=== PATIENT | female | born 1940 | race Caucasian/White ===

== ENCOUNTER 2017-03-30 13:29 | Day surgery (SDC) | payer MEDICARE, BC, SELFPAY ==
[2017-03-30 14:04] VITALS: BP 149/59; PULSE 57; RESP 18; TEMP 36.4; O2SAT 97
--- NOTE | 2017-03-30 14:24 | P.PCN_ITS ---
- Procedure Date: 03/30/17 Time: 14:22 Anesthesiologist:: Jorge Luis Last CRNA Complications:: None Pre-procedure Diagnosis:: Degenerative joint disease right shoulder Post-procedure Diagnosis:: Same Indications for Procedure:: Very pleasant 76-year-old white female with decreased range of motion and pain in the right shoulder. She has had right shoulder surgery in the past. However , she is not sure when that was. Presents to our procedure clinic today for a right subacromial shoulder injection. Procedure Details:: Details of the procedure were explained to the patient. The patient was taken to the procedure room placed in the sitting position. Noninvasive monitors were placed including noninvasive blood pressure cuff as well as pulse oximeter. The area over the posterior right shoulder was cleaned using chlorhexidine as a cleansing solution. The subacromial space was accessed using 25-gauge needle and 5 cc of 0.25% Marcaine +5 cc 1% lidocaine and 40 mg of Depo-Medrol was injected. Patient tolerated the procedure without difficulty. There were no complications. Plan and Disposition:: Patient was reevaluated 10 minutes post procedure. She is doing very well. She will return to see us in the pain clinic for further evaluation.
[2017-03-30 14:25] VITALS: BP 149/66; PULSE 51; RESP 20; O2SAT 97
[2017-03-30 14:26] VITALS: BP 155/80; PULSE 70; RESP 20
[2017-03-30 14:29] VITALS: BP 122/54; PULSE 57; RESP 18; TEMP 36.4; O2SAT 98
== END 2017-03-30 14:30 | disposition home or self-care (01) ==
LOC: SC.PAINP 13:34
PROVIDERS: Family Provider Family Medicine; Visit Provider Nurse Anesthetist, Certified Registered
DX: M19.011 Primary osteoarthritis, right shoulder (principal)
CPT/HCPCS: 20610; J1040

== ENCOUNTER → 2017-05-17 11:11 | Outpatient (POV) | payer MEDICARE, BC, SELFPAY ==
[2017-05-17 11:22] VITALS: BP 114/58; PULSE 61; RESP 16; O2SAT 96; BMI 30.4
--- NOTE | 2017-05-17 12:24 | HMH.PAINSOAP ---
[facility] Pain Management SOAP Note Subjective:: Patient is a very pleasant 76-year-old white female who presents today after a intra-articular shoulder injection. Patient states she did not get much relief from this. Patient has had long-term injuries to her shoulder along with degenerative joint disease. Patient states she does not really want to follow-up with an orthopedic surgeon for her shoulder at this time. Patient also has intrathecal pain pump and being managed by [facility]. Patient rates her pain a 6 out of 10 today. Patient denies any side effect her pain pump. Patient currently taking ibuprofen. I discussed potentially changing her to naproxen. Patient's pump currently has fentanyl 5000 mcg/mL concentration with a daily dose of 500 mcg. States that the pump does well for her back pain. ROS General: no recent weight change, no fever, no sleep disturbances Respiratory: no cough, no shortness of air, no recurring pulmonary infections Cardiovascular/Peripheral Vascular: No chest pain, No palpitations, no edema, no shortness of breath. Gastrointestinal: no incontinence, normal bowel movements reported Genitourinary: no incontinence Musculoskeletal: Lumbar back pain, right shoulder pain Psychiatric: normal mood/ affect Neurological: [denies weakness in extremities], balance issues at times uses cane for stability Objective:: Physical Exam General: Alert and oriented x3, no acute distress, pleasant and cooperative, [on room air] Lungs: Resps E/U, Symmetrical chest expansion, Eyes: PERRL Musculoskeletal: Flexion and extension of lumbar spine somewhat guarded secondary to pain, deep tendon reflexes normal, strength in upper and lower extremities [5/5], [abnormal gait noted] Neurological: speech clear, statistics tutor equal, no gross sensory deficits Assessment:: 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 Patient is not interested in seeing a surgeon for her shoulder at this time. Patient has a primary care physician visit this afternoon to discuss some medications. If the patient decides she wants to change the naproxen I would be more than happy to call this in for her. Patient is due a pain pump refill in June. We will continue to monitor. This note was dictated using voice electronic test technician software may contain errors or omissions
--- NOTE | 2017-05-17 12:29 | P.CONS_ITS ---
[facility] Pain Management SOAP Note Subjective:: Patient is a very pleasant 76-year-old white female who presents today after a intra-articular shoulder injection. Patient states she did not get much relief from this. Patient has had long-term injuries to her shoulder along with degenerative joint disease. Patient states she does not really want to follow- up with an orthopedic surgeon for her shoulder at this time. Patient also has intrathecal pain pump and being managed by [facility]. Patient rates her pain a 6 out of 10 today. Patient denies any side effect her pain pump. Patient currently taking ibuprofen. I discussed potentially changing her to naproxen. Patient's pump currently has fentanyl 5000 mcg/mL concentration with a daily dose of 500 mcg. States that the pump does well for her back pain. ROS General: no recent weight change, no fever, no sleep disturbances Respiratory: no cough, no shortness of air, no recurring pulmonary infections Cardiovascular/Peripheral Vascular: No chest pain, No palpitations, no edema, no shortness of breath. Gastrointestinal: no incontinence, normal bowel movements reported Genitourinary: no incontinence Musculoskeletal: Lumbar back pain, right shoulder pain Psychiatric: normal mood/ affect Neurological: [denies weakness in extremities], balance issues at times uses cane for stability Objective:: Physical Exam General: Alert and oriented x3, no acute distress, pleasant and cooperative, [ on room air] Lungs: Resps E/U, Symmetrical chest expansion, Eyes: PERRL Musculoskeletal: Flexion and extension of lumbar spine somewhat guarded secondary to pain, deep tendon reflexes normal, strength in upper and lower extremities [5/5], [abnormal gait noted] Neurological: speech clear, site manager equal, no gross sensory deficits Assessment:: 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 Patient is not interested in seeing a surgeon for her shoulder at this time. Patient has a primary care physician visit this afternoon to discuss some medications. If the patient decides she wants to change the naproxen I would be more than happy to call this in for her. Patient is due a pain pump refill in June. We will continue to monitor. This note was dictated using voice turbine technician software may contain errors or omissions
== END ==
PROVIDERS: Family Provider Family Medicine; PCP Internal Medicine Adolescent Medicine; Visit Provider Clinical Nurse Specialist Family Health
DX: M19.011 Primary osteoarthritis, right shoulder (principal)
CPT/HCPCS: 99212

== ENCOUNTER → 2017-09-20 14:07 | Outpatient (POV) | payer MEDICARE, BC, SELFPAY ==
[2017-09-20 14:23] VITALS: BP 106/41; PULSE 83; RESP 18; O2SAT 97; BMI 29.7
--- NOTE | 2017-09-20 14:59 | HMH.PMPROC ---
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 Patient has had a recent change in cognition over the last month. Patient presents today her electrical systems drafter. Patient does have an intrathecal fentanyl pump going at 500 mcg a day. Patient has not had any changes to her pump recently. Patient's electrical systems drafter is concerned that she might be overly sleepy along with extreme drowsiness. Patient also seemingly more forgetful as well as starting to present with repetitive OCD-like behaviors. I encouraged the patient to be seen by her primary care physician as well we will also decrease her pump today. Physical Exam General: Alert and oriented x3, no acute distress, pleasant and cooperative, [on room air] Lungs: Resps E/U, Symmetrical chest expansion, Eyes: PERRL Musculoskeletal: Flexion and extension of lumbar spine somewhat guarded secondary to pain, deep tendon reflexes normal, strength in upper and lower extremities [5/5], [abnormal gait noted] Skin: Multiple open areas with the patient has picked at her skin. Neurological: speech clear, electronic industrial controls mechanic equal, no gross sensory deficits Procedure Details:: Informed consent was obtained and the risk and benefits of the procedure were explained to the patient. The patient was taken to the procedure room where noninvasive monitoring was placed including noninvasive blood pressure cuff and pulse oximeter. Patient's pump was interrogated. The infusion rate was changed to periodic flow at 37.5 mcg over 10 minutes every 2 hours for total daily dose of 450 mcg a day.. The patient tolerated the procedure well. Plan and Disposition:: We will follow-up with the patient in 2 weeks reassess her symptoms at that time. I encouraged her to discuss this with her primary care physician. Patient's been instructed to call the office if she has any issues prior to next appointment. This note was dictated using voice recognition software and may contain errors or omissions
--- NOTE | 2017-09-20 15:04 | P.PCN_ITS ---
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 Patient has had a recent change in cognition over the last month. Patient presents today her adult ministries director. Patient does have an intrathecal fentanyl pump going at 500 mcg a day. Patient has not had any changes to her pump recently. Patient's adult ministries director is concerned that she might be overly sleepy along with extreme drowsiness. Patient also seemingly more forgetful as well as starting to present with repetitive OCD- like behaviors. I encouraged the patient to be seen by her primary care physician as well we will also decrease her pump today. Physical Exam General: Alert and oriented x3, no acute distress, pleasant and cooperative, [ on room air] Lungs: Resps E/U, Symmetrical chest expansion, Eyes: PERRL Musculoskeletal: Flexion and extension of lumbar spine somewhat guarded secondary to pain, deep tendon reflexes normal, strength in upper and lower extremities [5/5], [abnormal gait noted] Skin: Multiple open areas with the patient has picked at her skin. Neurological: speech clear, assistant floor covering printer equal, no gross sensory deficits Procedure Details:: Informed consent was obtained and the risk and benefits of the procedure were explained to the patient. The patient was taken to the procedure room where noninvasive monitoring was placed including noninvasive blood pressure cuff and pulse oximeter. Patient's pump was interrogated. The infusion rate was changed to periodic flow at 37.5 mcg over 10 minutes every 2 hours for total daily dose of 450 mcg a day.. The patient tolerated the procedure well. Plan and Disposition:: We will follow-up with the patient in 2 weeks reassess her symptoms at that time. I encouraged her to discuss this with her primary care physician. Patient's been instructed to call the office if she has any issues prior to next appointment. This note was dictated using voice recognition software and may contain errors or omissions
== END ==
PROVIDERS: Family Provider Family Medicine; PCP Internal Medicine Adolescent Medicine; Visit Provider Clinical Nurse Specialist Family Health
DX: M19.011 Primary osteoarthritis, right shoulder (principal); Z45.1 Encounter for adjustment and management of infusion pump; M54.16 Radiculopathy, lumbar region
CPT/HCPCS: 62367; 99212

== ENCOUNTER 2017-09-27 19:12 | Inpatient (IN) ==
[2017-09-27 19:36] LABS: ABG Base Excess 1.5 mmol/L (-2.4-2.3); ABG HCO3 24.9 mmhg (22.0-26.0); ABG Oxygen Saturation 92 % (90-100); ABG PCO2 33.8 mmhg (35.0-45.0); ABG PH 7.49 mmol/L (7.35-7.45); ABG PO2 61.2 mmhg (80-100); ABG TCO2 25.9 mmhg (23-27)
[2017-09-27 19:38] LABS: Allen's Test Acceptable; Oxygen 28 %
[2017-09-27 19:48] LABS: Basophils % 0.2 % (0.1-2.0); Eosinophils % 0.2 % (0.1-12.0); Hematocrit 38.7 % (37.0-47.0); Hemoglobin 12.2 g/dL (12.2-16.2); Lymphocytes # 0.7 K/mm3 (0.7-4.5); Lymphocytes % 2.9 K/mm3 (10-50); Mean Corpuscular HGB Conc 31.6 g/dL (31.8-35.4); Mean Corpuscular Hemoglobin 30.5 pg (27.0-31.2); Mean Corpuscular Volume 96.3 fl (81-99); Mean Platelet Volume 8.2 fl (7.4-10.4); Monocytes # 0.8 K/mm3 (0.1-1.0); Neutrophils # 23.9 K/mm3 (1.8-7.8); Neutrophils % 93.8 % (37.0-80.0); Platelet Count 244 K/mm3 (142-424); Red Blood Count 4.02 M/mm3 (4.20-5.40); Red Cell Distribution Width 13.1 % (11.5-17.5); White Blood Count 25.4 K/mm3 (4.8-10.8)
[2017-09-27 19:55] LABS: Appearance,Urine SL CLOUDY (Clear); Bilirubin,Urine Negative (Negative); Blood, Urine 2+ (Negative); Color,Urine YELLOW (Yellow); Glucose,Urine (UA) Negative (Negative); Ketones,Urine Negative (Negative); Leukocyte Esterase,Urine 3+ (Negative); Microscopic, Urine URINE MICROSCOPIC (MICROSCOPIC); Protein,Urine 2+ (Negative); Specific Gravity, Urine 1.015 (1.005-1.030); Urobilinogen,Urine 0.2 EU/dl (0.2)
[2017-09-27 19:57] LABS: Albumin Level 2.3 gm/dL (3.4-5.0); Albumin/Globulin Ratio 0.4 (1.1-1.8); Bilirubin,Total 0.5 mg/dL (0.2-1.0); Calcium 9.5 mg/dL (8.5-10.1); Globulin 5.2 gm/dl (1.3-3.2); Total Protein,Serum 7.5 gm/dL (6.4-8.2)
[2017-09-27 20:08] LABS: Bacteria,Urine 3+ /lpf; RBC,Urine Occasional #/hpf (0-3); WBC,Urine 50-100 #/hpf (0-3)
--- NOTE | 2017-09-27 20:14 | Emergency Department Note ---
ED Disposition Instructions: DI for Altered Mental Status Referrals: Josep Up MD [Primary Care Provider] - Attestation: On 09/27/17, the high probability of a clinically significant, sudden or life threatening deterioration of the following system(s) required my full and direct attention, intervention and personal management. The time I documented below is in addition to time spent performing reported procedures but includes the following listed in this critical care notation. Medical Decision Making Vital Signs: 09/27/17 19:13 09/27/17 19:39 Temperature 99.9 F H Temperature Source Oral Pulse Rate [Right Brachial] 98 H 100 H Respiratory Rate 14 15 Blood Pressure [Right Arm] 100/49 116/56 Blood Pressure Mean [Right Arm] 66 76 Blood Pressure Source [Right Arm] Automatic Cuff Blood Pressure Position [Right Arm] Sitting 02 Sat by Pulse Oximetry 87 L 94 L Oxygen Delivery Method Room Air Nasal Cannula Oxygen Flow Rate (LPM) 2 - Lab Data Lab Results 09/27/17 19:25: WBC 25.4 H*, RBC 4.02 L, Hgb 12.2, Hct 38.7, MCV 96.3, MCH 30.5 , MCHC 31.6 L, RDW 13.1, Plt Count 244, MPV 8.2, Neut % (Auto) 93.8 H, Lymph % ( Auto) 2.9 L, Carter % (Auto) 3.0, Eos % (Auto) 0.2, Baso % (Auto) 0.2, Neut # ( Auto) 23.9 H, Lymph # (Auto) 0.7, Carter # (Auto) 0.8, Eos # (Auto) 0.0, Baso # ( Auto) 0.0 09/27/17 19:25: Sodium 140, Potassium 2.0 L*, Chloride 100, Carbon Dioxide 26, Anion Gap 16.0 H, BUN 28 H, Creatinine 1.28 H, Estimated Creat Clear 32, Estimated GFR 40 L, Est GFR ( Amer) 49 L, Glucose 139 H, Calcium 9.5, Total Bilirubin 0.5, AST 22, ALT 27, Alkaline Phosphatase 121 H, Troponin I 0.03 , Total Protein 7.5, Albumin 2.3 L, Globulin 5.2 H, Albumin/Globulin Ratio 0.4 L 09/27/17 19:25: Lactic Acid 2.3 H 09/27/17 19:26: Specimen Source Left radial, O2 % 28, ABG pH 7.49 H, ABG pCO2 33.8 L, ABG pO2 61.2 L, ABG HCO3 24.9, ABG Total CO2 25.9, ABG O2 Saturation 92 , ABG Base Excess 1.5, Edgar Test Acceptable 09/27/17 19:50: Urine Color Yellow, Urine Appearance Sl cloudy, Urine pH 6.0, Ur Specific Champion 1.015, Urine Protein 2+, Urine Glucose (UA) Negative, Urine Ketones Negative, Urine Blood 2+, Urine Nitrate Positive, Urine Bilirubin Negative, Urine Urobilinogen 0.2, Ur Leukocyte Esterase 3+ A Result diagrams: 09/27/17 19:25 09/27/17 19:25 Orders (Tests/Meds): ED MEDICATIONS Generic Name Dose Route Start Last Admin Trade Name Freq PRN Reason Stop Dose Admin Sodium Chloride 1,000 mls @ 999 mls/hr 09/27/17 20:00 Sod Chlor 0.9% 1000ml Bag IV 09/27/17 21:00 .[id number] MARY ORDERS Category Date Time Status CT head/brain wo con Stat Cat Scan 09/27/17 19:26 Ordered XR chest AP Stat Exams 09/27/17 19:26 Ordered Ammonia Stat Lab 09/27/17 19:25 Received Complete Blood Count Auto Diff Stat Lab 09/27/17 19:25 Results Urinalysis and Microscopic Stat Lab 09/27/17 19:50 Results Blood Culture Stat Micro 09/27/17 19:40 Ordered Urine Culture Stat Micro 09/27/17 19:50 Received Arterial Blood Gas Stat RT 09/27/17 19:53 Ordered ECG Request by /Nse Stat Y 09/27/17 19:26 Ordered Altered Mental Status HPI - General Chief Complaint: Altered Mental Status Stated Complaint: Weakness Time Seen by Provider: 09/27/17 20:03 Mode of Arrival: Wheelchair Limitations: Physical Limitations Description of Symptoms (Recalled from ER Triage Doc. by RN): Reports increasing "lethargy" over the past couple days. Pt has been with a sitter while daughter was out of town and reports patient was hard to arouse today. Pt room air sat on arrival 87%. Responds to painful stimuli, does know her name. - Related Data Home Medications Medication Instructions Recorded Confirmed Lisinopril [Lisinopril 20mg Tab] 20 mg PO BID 05/17/17 09/27/17 Amlodipine Besylate [Norvasc 5mg 5 mg PO DAILY 09/27/17 09/27/17 tablet] Aspirin [Aspirin 81mg chewable 81 mg PO DAILY 09/27/17 09/27/17 tab] Calcium Carbonate/Vitamin D3 1 each PO DAILY 09/27/17 09/27/17 [Caltrate 600 Plus D3 Tablet] Cholecalciferol (Vitamin D3) 2,000 unit PO DAILY 09/27/17 09/27/17 [Vitamin D3] Duloxetine HCl 60 mg PO BID 09/27/17 09/27/17 Folic Acid [Folic Acid 1mg tablet] 1 mg PO DAILY 09/27/17 09/27/17 Multivit with Iron-Minerals 1 each PO DAILY 09/27/17 09/27/17 [Complete Senior] Potassium Chloride [Klor-Con 10 meq PO BID 09/27/17 09/27/17 Sprinkle 10mEq] Pravastatin Sodium [Pravachol 40mg 40 mg PO HS 09/27/17 09/27/17 Tablet] Pregabalin [Lyrica 100mg Cap] 100 mg PO TID 09/27/17 09/27/17 Sucralfate [Sucralfate 1gm 1 gm PO TID 09/27/17 09/27/17 Tab] clonazePAM [Clonazepam] 1 mg PO HS 09/27/17 09/27/17 hydroCHLOROthiazide [HCTZ 12.5mg 12.5 mg PO DAILY 09/27/17 09/27/17 capsule] Allergies Allergy/AdvReac Type Severity Reaction Status Date / Time hydromorphone [From DILAUDID] Allergy Unknown Hallucinati Verified 09/27/17 19: 33 ng [facility] History Medical History: Reports:: Coronary Artery Disease, Hyperlipidemia, Hypertension Denies:: Cancer, Diabetes Mellitus Type 1, Diabetes Mellitus Type 2, Internal Pacemaker, MRSA, Seizures Other Medical History: Reports: Arthritis, Sinus Problems. Denies: Blood Transfusion Reaction Other Surgeries: Yes: Cardiac Catheterization, Coronary Stent. No: Pacemaker Amputation: No Fractures: No - Social History Smoking Status: Current every day smoker Tobacco Type: cigarettes # Packs/Day (cigarettes): 1 Alcohol Intake: never Occupational Status: unemployed Housing: house - Psychiatric History Expresses thoughts of harming self/others: None Suicide Plan Description: No Plan Family Hx:: No significant family history
[2017-09-27 21:14] LABS: Lymphocytes % 4 % (10-50); Monocytes % 1 % (2-9); Neutrophils % 95 % (42-76); Total Cells Counted 100
[2017-09-27 21:15] LABS: Anisocytosis 1+; Stomatocytes 1+
--- NOTE | 2017-09-27 21:25 | Emergency Department Note ---
ED Disposition Clinical Impression: Hypokalemia, Renal insufficiency UTI (urinary tract infection) Qualifiers: Urinary tract infection type: site unspecified Hematuria presence: without hematuria Qualified Code(s): N39.0 - Urinary tract infection, site not specified Sepsis Qualifiers: Sepsis type: sepsis due to unspecified organism Qualified Code(s): A41.9 - Sepsis, unspecified organism Disposition: Admitted As Inpatient Condition on Discharge: Serious Instructions: DI for Altered Mental Status Referrals: Josep Up MD [Primary Care Provider] - - Critical Care Critical Care Time: No Attestation: On 09/27/17, the high probability of a clinically significant, sudden or life threatening deterioration of the following system(s) required my full and direct attention, intervention and personal management. The time I documented below is in addition to time spent performing reported procedures but includes the following listed in this critical care notation. Medical Decision Making - Medical Records Medical records reviewed: Yes: I reviewed the patient's medical records. - [place] Inquiry Pt receiving controlled substance: No Vital Signs: 09/27/17 19:13 09/27/17 19:39 09/27/17 20:30 Temperature 99.9 F H 103.1 F H Temperature Source Oral Rectal Pulse Rate [Right Brachial] 98 H 100 H 96 H Respiratory Rate 14 15 18 Blood Pressure [Right Arm] 100/49 116/56 122/59 Blood Pressure Mean [Right Arm] 66 76 80 Blood Pressure Source [Right Arm] Automatic Cuff Automatic Cuff Blood Pressure Position [Right Arm] Sitting Supine 02 Sat by Pulse Oximetry 87 L 94 L Oxygen Delivery Method Room Air Nasal Cannula Oxygen Flow Rate (LPM) 2 09/27/17 20:42 09/27/17 21:06 09/27/17 21:13 Temperature 102.8 F H Temperature Source Rectal Pulse Rate [Right Brachial] 97 H 92 H 86 Respiratory Rate 15 15 16 Blood Pressure [Right Arm] 144/56 127/54 119/62 Blood Pressure Mean [Right Arm] 85 78 81 Blood Pressure Source [Right Arm] Blood Pressure Position [Right Arm] 02 Sat by Pulse Oximetry 92 L 94 L 99 Oxygen Delivery Method Nasal Cannula Nasal Cannula Nasal Cannula Oxygen Flow Rate (LPM) 2 2 2 - Lab Data Lab results reviewed: Yes: I reviewed the patient's lab results. Lab Results 09/27/17 19:25: WBC 25.4 H*, RBC 4.02 L, Hgb 12.2, Hct 38.7, MCV 96.3, MCH 30.5 , MCHC 31.6 L, RDW 13.1, Plt Count 244, MPV 8.2, Neut % (Auto) 93.8 H, Lymph % ( Auto) 2.9 L, [place] % (Auto) 3.0, Eos % (Auto) 0.2, Baso % (Auto) 0.2, Neut # ( Auto) 23.9 H, Lymph # (Auto) 0.7, [place] # (Auto) 0.8, Eos # (Auto) 0.0, Baso # ( Auto) 0.0, Total Counted 100, Neutrophils % (Manual) 95 H, Lymphocytes % (Manual ) 4 L, Monocytes % (Manual) 1 L, Platelet Estimate Normal, RBC Morphology Not Reportable, Anisocytosis 1+, Stomatocytes 1+ 09/27/17 19:25: Sodium 140, Potassium 2.0 L*, Chloride 100, Carbon Dioxide 26, Anion Gap 16.0 H, BUN 28 H, Creatinine 1.28 H, Estimated Creat Clear 32, Estimated GFR 40 L, Est GFR ( Amer) 49 L, Glucose 139 H, Calcium 9.5, Total Bilirubin 0.5, AST 22, ALT 27, Alkaline Phosphatase 121 H, Troponin I 0.03 , Total Protein 7.5, Albumin 2.3 L, Globulin 5.2 H, Albumin/Globulin Ratio 0.4 L 09/27/17 19:25: Lactic Acid 2.3 H 09/27/17 19:25: Ammonia 23 09/27/17 19:26: Specimen Source Left radial, O2 % 28, ABG pH 7.49 H, ABG pCO2 33.8 L, ABG pO2 61.2 L, ABG HCO3 24.9, ABG Total CO2 25.9, ABG O2 Saturation 92 , ABG Base Excess 1.5, Edgar Test Acceptable 09/27/17 19:50: Urine Color Yellow, Urine Appearance Sl cloudy, Urine pH 6.0, Ur Specific [place] 1.015, Urine Protein 2+, Urine Glucose (UA) Negative, Urine Ketones Negative, Urine Blood 2+, Urine Nitrate Positive, Urine Bilirubin Negative, Urine Urobilinogen 0.2, Ur Leukocyte Esterase 3+ A, Urine RBC Occasional, Urine WBC 50-100, Ur Squamous Epith Cells None, Urine Bacteria 3+ Result diagrams: 09/27/17 19:25 09/27/17 19:25 Orders (Tests/Meds): ED MEDICATIONS Discontinued Medications Generic Name Dose Route Start Last Admin Trade Name Shelly PRN Reason Stop Dose Admin Acetaminophen 650 mg 09/27/17 20:33 09/27/17 20:35 Acetaminophen 650mg Suppository RC 09/27/17 20:34 650 mg ONCE ONE Administration Sodium Chloride 1,000 mls @ 999 mls/hr 09/27/17 20:00 09/27/17 20:35 Sod Chlor 0.9% 1000ml Bag IV 09/27/17 21:00 999 mls/hr .[id number] MARY Administration ORDERS Category Date Time Status CT head/brain wo con Stat Cat Scan 09/27/17 19:26 Taken XR chest AP Stat Exams 09/27/17 19:26 Taken Blood Culture Stat Micro 09/27/17 19:40 Ordered Urine Culture Stat Micro 09/27/17 19:50 Received Arterial Blood Gas Stat RT 09/27/17 19:53 Ordered - Radiology Data #1 Image(s): Chest Image Reviewed: Yes I reviewed the patient's radiology image Preliminary Findings: Abnormal (perihilar changes ) - CT Data CT Scan: Head Time Received: 21:[address] Reviewed: Yes: I have viewed the radiologist's interpretation Preliminary Findings: Abnormal (see report ) - ECG Data Tracing #1 I reviewed this ECG and interpreted as documented below: Arrhythmias present: sinus tach Ischemic changes: non-specific ST-T wave changes ECG compared to prior tracings: there are no prior tracings available for comparison Altered Mental Status HPI - General Chief Complaint: Altered Mental Status Stated Complaint: Weakness Time Seen by Provider: 09/27/17 20:03 Mode of Arrival: Wheelchair Limitations: Physical Limitations Description of Symptoms (Recalled from ER Triage Doc. by RN): Reports increasing "lethargy" over the past couple days. Pt has been with a sitter while daughter was out of town and reports patient was hard to arouse today. Pt room air sat on arrival 87%. Responds to painful stimuli, does know her name. - History of Present Illness HPI narrative: pt with progressive weakness over the last 24 hrs with no vomiting but dec po intake and has confusion - pt was found to have fever in ed and uti MD complaint: altered mental status Onset (ago): day(s) Timing confirmed by: family member Severity: moderate Consistency of symptoms: getting worse Associated symptoms: denies other symptoms - Related Data Home Medications Medication Instructions Recorded Confirmed Lisinopril [Lisinopril 20mg Tab] 20 mg PO BID 05/17/17 09/27/17 Amlodipine Besylate [Norvasc 5mg 5 mg PO DAILY 09/27/17 09/27/17 tablet] Aspirin [Aspirin 81mg chewable 81 mg PO DAILY 09/27/17 09/27/17 tab] Calcium Carbonate/Vitamin D3 1 each PO DAILY 09/27/17 09/27/17 [Caltrate 600 Plus D3 Tablet] Cholecalciferol (Vitamin D3) 2,000 unit PO DAILY 09/27/17 09/27/17 [Vitamin D3] Duloxetine HCl 60 mg PO BID 09/27/17 09/27/17 Folic Acid [Folic Acid 1mg tablet] 1 mg PO DAILY 09/27/17 09/27/17 Multivit with Iron-Minerals 1 each PO DAILY 09/27/17 09/27/17 [Complete Senior] Potassium Chloride [Klor-Con 10 meq PO BID 09/27/17 09/27/17 Sprinkle 10mEq] Pravastatin Sodium [Pravachol 40mg 40 mg PO HS 09/27/17 09/27/17 Tablet] Pregabalin [Lyrica 100mg Cap] 100 mg PO TID 09/27/17 09/27/17 Sucralfate [Sucralfate 1gm 1 gm PO TID 09/27/17 09/27/17 Tab] clonazePAM [Clonazepam] 1 mg PO HS 09/27/17 09/27/17 hydroCHLOROthiazide [HCTZ 12.5mg 12.5 mg PO DAILY 09/27/17 09/27/17 capsule] Allergies Allergy/AdvReac Type Severity Reaction Status Date / Time hydromorphone [From DILAUDID] Allergy Unknown Hallucinati Verified 09/27/17 19: 33 ng [facility] History I have reviewed the patient's past medical history: Yes Medical History: Reports:: Coronary Artery Disease, Hyperlipidemia, Hypertension Denies:: Cancer, Diabetes Mellitus Type 1, Diabetes Mellitus Type 2, Internal Pacemaker, MRSA, Seizures Other Medical History: Reports: Arthritis, Sinus Problems. Denies: Blood Transfusion Reaction Other Surgeries: Yes: Cardiac Catheterization, Coronary Stent. No: Pacemaker Amputation: No Fractures: No - Social History Smoking Status: Current every day smoker Tobacco Type: cigarettes # Packs/Day (cigarettes): 1 Alcohol Intake: never Occupational Status: unemployed Housing: house - Psychiatric History Expresses thoughts of harming self/others: None Suicide Plan Description: No Plan Family Hx:: No significant family history ROS Obtained: Yes All systems reviewed & no additional complaints - Constitutional Constitutional: Reports as per HPI, Reports fever(s), Reports malaise - Eyes Eyes: Denies change in vision - ENT Ears, Nose, Mouth, and Throat: Denies sore throat - Cardiovascular Cardiovascular: Denies chest pain - Respiratory Respiratory: No cough - Gastrointestinal Gastrointestingal: Denies: abdominal pain, vomiting - Genitourinary Female Genitourinary: Denies hematuria - Musculoskeletal Musculoskeletal: Denies joint pain - Integumentary/Breasts Skin/Breast: Denies rash - Neurologic Neurologic: Denies seizure-like activity Physical Exam - General General appearance: lethargic - Head Head exam: normocephalic - Eye Eye exam: Present: PERRL, EOMI - ENT ENT exam: Present: mucous membranes dry - Neck Neck exam: Present: trachea midline - Respiratory Respiratory exam: Absent: respiratory distress - Cardiovascular Cardiovascular exam: Present: regular rate, systolic murmur, +S4 - Abdominal Exam Abdominal exam: Present: soft. Absent: tenderness, guarding - Extremities Exam Extremities exam: Present: pedal edema - Neurological Exam Neurological exam: Present: alert, CN II-XII intact - Skin Skin exam: Absent: rash
[2017-09-28 05:15] LABS: Basophils % 0.1 % (0.1-2.0); Eosinophils % 0.1 % (0.1-12.0); Hematocrit 33.9 % (37.0-47.0); Lymphocytes # 0.9 K/mm3 (0.7-4.5); Lymphocytes % 4.6 K/mm3 (10-50); Mean Corpuscular HGB Conc 31.9 g/dL (31.8-35.4); Mean Corpuscular Hemoglobin 30.7 pg (27.0-31.2); Mean Corpuscular Volume 96.4 fl (81-99); Monocytes # 0.6 K/mm3 (0.1-1.0); Monocytes % 3.3 % (1.7-9.3); Neutrophils # 17.4 K/mm3 (1.8-7.8); Platelet Count 184 K/mm3 (142-424); Red Blood Count 3.52 M/mm3 (4.20-5.40); Red Cell Distribution Width 13.4 % (11.5-17.5)
[2017-09-28 05:17] LABS: Anion Gap 11.9 mEq/L (5-15); Calcium 8.7 mg/dL (8.5-10.1)
[2017-09-28 05:19] LABS: Potassium 1.9 mmoL/L (3.5-5.1)
[2017-09-28 05:24] LABS: Hemoglobin 10.9 g/dL (12.2-16.2)
[2017-09-28 05:53] LABS: Lymphocytes % 2 % (10-50); Monocytes % 2 % (2-9); Neutrophils % 96 % (42-76); Total Cells Counted 100
[2017-09-28 05:54] LABS: Anisocytosis 1+
--- NOTE | 2017-09-28 07:40 | Pharmacy Consult Notes ---
[facility] Pharmacy VTE Monitoring - Patient Demographics Admission date: 09/28/17 Report Date: 09/28/17 Time: 07:39 Allergies/Adverse Reactions: Patient Allergies hydromorphone [From DILAUDID] Allergy (Unknown, Verified 09/27/17 19:33) Hallucinating Height: 1.4 m Weight: 58.712 kg Patient Problems: Current Active Problems UTI (urinary tract infection) (Acute) Hypokalemia (Acute) Renal insufficiency (Acute) Sepsis (Acute) - VTE Risk Labs: VTE Related Lab Results Hgb 10.9 g/dL (12.2-16.2) L D 09/28/17 05:00 Hct 33.9 % (37.0-47.0) L 09/28/17 05:00 Plt Count 184 K/mm3 (142-424) 09/28/17 05:00 BUN 25 mg/dL (7-18) H 09/28/17 05:00 Creatinine 0.98 mg/dL (0.55-1.02) D 09/28/17 05:00 Estimated Creat Clear 42 mL/min (0-300) 09/28/17 05:00 Was VTE Risk Assessment Performed: Yes VTE Score: 2 VTE Risk Level: Very Low Risk - Prophylaxis VTE Prophylaxis Ordered?: Yes Types of VTE Prophylaxis: TEDS Knee High Location of Applied Device: Bilateral Lower Extremeties - VTE Diagnosis Confirmed Treatment or plan recommended: Continue Current Treatment
--- NOTE | 2017-09-28 08:40 | History & Physical Report ---
*Admission Date: 09/28/17 *Chief complaint: lethargy and confusion *History of present illness: 77 year old female with multiple chronic medical conditions presented to the ED with lethargy and confusion. Patient had been residing with a sitter as her daughter has been out of town. The sitter reports patient has been lethargic for a few days with increased confusion. In the ED, she was found to have febrile UTI with temp 103. WBC was 25.4. She was significantly hypokalemic at 1.8. Patient was admitted for IV antibiotics, potassium replacement and further evaluation. This morning, patient is alert but confused. Fevers are improving. Potassium continues to be low at 1.9. Reports some dysuria. [facility] History I have reviewed the patient's past medical history: Yes Medical History: Reports:: Coronary Artery Disease, Hyperlipidemia, Hypertension Denies:: Cancer, Diabetes Mellitus Type 1, Diabetes Mellitus Type 2, Internal Pacemaker, MRSA, Seizures Other Medical History: Reports: Arthritis, Sinus Problems. Denies: Blood Transfusion Reaction Laterality Cases: Right: Arthroscopy Knee Other Surgeries: Yes: Cardiac Catheterization, Coronary Stent. No: Pacemaker Amputation: No Fractures: No - *Social History Educational Level: Completed High School Smoking Status: Current every day smoker Tobacco Type: cigarettes # Packs/Day (cigarettes): 1 Alcohol Intake: never Occupational Status: unemployed Housing: house Household Members: family - Psychiatric History Expresses thoughts of harming self/others: None Suicide Plan Description: No Plan *Family Hx:: No significant family history Review of Systems - Constitutional Reports fatigue, Reports fever(s), Reports weakness - *Genitourinary Reports painful urination - *Neurologic Reports confusion, Denies seizure-like activity Meds Home Medications Medication Instructions Recorded Confirmed Type Lisinopril [Lisinopril 20mg Tab] 20 mg PO DAILY 05/17/17 09/28/17 History Amlodipine Besylate [Norvasc 5mg 5 mg PO DAILY 09/27/17 09/27/17 History tablet] Aspirin [Aspirin 81mg chewable 81 mg PO DAILY 09/27/17 09/27/17 History tab] Calcium Carbonate/Vitamin D3 1 each PO DAILY 09/27/17 09/27/17 History [Caltrate 600 Plus D3 Tablet] Cholecalciferol (Vitamin D3) 2,000 unit PO DAILY 09/27/17 09/27/17 History [Vitamin D3] Duloxetine HCl 60 mg PO DAILY 09/27/17 09/28/17 History Folic Acid [Folic Acid 1mg tablet] 1 mg PO DAILY 09/27/17 09/27/17 History Multivit with Iron-Minerals 1 each PO DAILY 09/27/17 09/27/17 History [Complete Senior] Potassium Chloride [Klor-Con 10 meq PO BID 09/27/17 09/27/17 History Sprinkle 10mEq] Pravastatin Sodium [Pravachol 40mg 40 mg PO HS 09/27/17 09/27/17 History Tablet] Pregabalin [Lyrica 100mg Cap] 100 mg PO TID 09/27/17 09/27/17 History Sucralfate [Sucralfate 1gm 1 gm PO TID 09/27/17 09/27/17 History Tab] clonazePAM [Clonazepam] 1 mg PO HS 09/27/17 09/27/17 History hydroCHLOROthiazide [HCTZ 12.5mg 12.5 mg PO DAILY 09/27/17 09/27/17 History capsule] Atenolol [Atenolol 25mg Tab] 25 mg PO DAILY 09/28/17 09/28/17 History Allergies Allergy/AdvReac Type Severity Reaction Status Date / Time hydromorphone [From DILAUDID] Allergy Unknown Hallucinati Verified 09/27/17 19: 33 ng Exam Vital signs and Labs for Last 24 Hours: Temp Pulse Resp BP Pulse Ox 98.7 F 70 18 103/44 93 L 09/28/17 07:30 09/28/17 07:30 09/28/17 07:30 09/28/17 07:30 09/28/17 07:30 Laboratory Results - last 24 hr 09/27/17 19:25: WBC 25.4 H*, RBC 4.02 L, Hgb 12.2, Hct 38.7, MCV 96.3, MCH 30.5 , MCHC 31.6 L, RDW 13.1, Plt Count 244, MPV 8.2, Neut % (Auto) 93.8 H, Lymph % ( Auto) 2.9 L, [place] % (Auto) 3.0, Eos % (Auto) 0.2, Baso % (Auto) 0.2, Neut # ( Auto) 23.9 H, Lymph # (Auto) 0.7, [place] # (Auto) 0.8, Eos # (Auto) 0.0, Baso # ( Auto) 0.0, Total Counted 100, Neutrophils % (Manual) 95 H, Lymphocytes % (Manual ) 4 L, Monocytes % (Manual) 1 L, Platelet Estimate Normal, RBC Morphology Not Reportable, Anisocytosis 1+, Stomatocytes 1+ 09/27/17 19:25: Sodium 140, Potassium 2.0 L*, Chloride 100, Carbon Dioxide 26, Anion Gap 16.0 H, BUN 28 H, Creatinine 1.28 H, Estimated Creat Clear 32, Estimated GFR 40 L, Est GFR ( Amer) 49 L, Glucose 139 H, Calcium 9.5, Total Bilirubin 0.5, AST 22, ALT 27, Alkaline Phosphatase 121 H, Troponin I 0.03 , Total Protein 7.5, Albumin 2.3 L, Globulin 5.2 H, Albumin/Globulin Ratio 0.4 L 09/27/17 19:25: Lactic Acid 2.3 H 09/27/17 19:25: Ammonia 23 09/27/17 19:26: Specimen Source Left radial, O2 % 28, ABG pH 7.49 H, ABG pCO2 33.8 L, ABG pO2 61.2 L, ABG HCO3 24.9, ABG Total CO2 25.9, ABG O2 Saturation 92 , ABG Base Excess 1.5, Edgar Test Acceptable 09/27/17 19:50: Urine Color Yellow, Urine Appearance Sl cloudy, Urine pH 6.0, Ur Specific [place] 1.015, Urine Protein 2+, Urine Glucose (UA) Negative, Urine Ketones Negative, Urine Blood 2+, Urine Nitrate Positive, Urine Bilirubin Negative, Urine Urobilinogen 0.2, Ur Leukocyte Esterase 3+ A, Urine RBC Occasional, Urine WBC 50-100, Ur Squamous Epith Cells None, Urine Bacteria 3+ 09/27/17 23:04: Troponin I 0.05 09/27/17 23:04: Lactic Acid Fup @ 4Hr 1.2 09/28/17 00:50: Troponin I 0.05 09/28/17 00:50: Potassium 1.8 L* 09/28/17 03:55: Troponin I 0.04 09/28/17 05:00: WBC 19.0 H D, RBC 3.52 L, Hgb 10.9 L D, Hct 33.9 L, MCV 96.4, MCH 30.7, MCHC 31.9, RDW 13.4, Plt Count 184, MPV 8.0, Neut % (Auto) 92.0 H, Lymph % (Auto) 4.6 L, [place] % (Auto) 3.3, Eos % (Auto) 0.1, Baso % (Auto) 0.1, Neut # (Auto) 17.4 H, Lymph # (Auto) 0.9, [place] # (Auto) 0.6, Eos # (Auto) 0.0, Baso # (Auto) 0.0, Total Counted 100, Neutrophils % (Manual) 96 H, Lymphocytes % (Manual) 2 L, Monocytes % (Manual) 2, Platelet Estimate Normal, RBC Morphology Not Reportable, Anisocytosis 1+ 09/28/17 05:00: Sodium 143, Potassium 1.9 L*, Chloride 107, Carbon Dioxide 26, Anion Gap 11.9, BUN 25 H, Creatinine 0.98 D, Estimated Creat Clear 42, Estimated GFR 55 L, Est GFR ( Amer) 66 D, Glucose 118 H, Calcium 8.7 09/28/17 07:14: Random Tobramycin 3.7 I & O for Last 24 hours: Intake & Output 09/25/17 09/26/17 09/27/17 09/28/17 11:59 11:59 11:59 11:59 Intake Total 1500 / 1500 Output Total 900 / 900 Balance 600 / 600 Weight 129 lb 7 oz Microbiology Reports for the Last 24 Hours: Microbiology 09/27/17 19:50 Urine,Catheterized Urine Culture - Preliminary Gram Negative Rods Narrative: Alert and oriented to self only. Pleasantly confused. Rate and rhythm regular. Lung sounds clear. Abdomen soft and nontender. SKin pink, warm and dry. No acute neuro deficits. H&P: Result - Labs Labs: Short CBC 09/27/17 09/28/17 Range/Units 19:25 05:00 WBC 25.4 H* 19.0 H D (4.8-10.8) K/mm3 Hgb 12.2 10.9 L D (12.2-16.2) g/dL Hct 38.7 33.9 L (37.0-47.0) % Plt Count 244 184 (142-424) K/mm3 BMP 09/27/17 09/28/17 09/28/17 19:25 00:50 05:00 Sodium 140 143 Potassium 2.0 L* 1.8 L* 1.9 L* Chloride 100 107 Carbon Dioxide 26 26 BUN 28 H 25 H Creatinine 1.28 H 0.98 D Glucose 139 H 118 H Calcium 9.5 8.7 Cardiac Enzymes 09/27/17 09/27/17 09/28/17 Range/Units 19:25 23:04 00:50 Troponin I 0.03 0.05 0.05 (0.00-0.06) ng/ml 09/28/17 Range/Units 03:55 Troponin I 0.04 (0.00-0.06) ng/ml Liver Function 09/27/17 Range/Units 19:25 Total Bilirubin 0.5 (0.2-1.0) mg/dL AST 22 (15-37) U/L ALT 27 (12-78) U/L Alkaline Phosphatase 121 H (46-116) U/L Albumin 2.3 L (3.4-5.0) gm/dL Urine 09/27/17 Range/Units 19:50 Urine Color Yellow (Yellow) Urine Appearance Sl cloudy (Clear) Urine pH 6.0 (5.0-8.5) Ur Specific [place] 1.015 (1.005-1.030) Urine Protein 2+ (Negative) Urine Glucose (UA) Negative (Negative) Assessment and Plan (1) Hypokalemia Current visit: Yes Status: Acute Category: Medical Code(s): E87.6 - Hypokalemia (2) Renal insufficiency Current visit: Yes Status: Acute Category: Medical Code(s): N28.9 - Disorder of kidney and ureter, unspecified (3) UTI (urinary tract infection) Current visit: Yes Status: Acute Qualifiers: Urinary tract infection type: site unspecified Hematuria presence: without hematuria Qualified Code(s): N39.0 - Urinary tract infection, site not specified Category: Medical Code(s): N39.0 - Urinary tract infection, site not specified - Assessment and plan all Dx Assessment and Plan for all problems:: Continue broad spectrum antibiotics. Urine and blood cultures pending. Replace potassium and check CMP in the am. PT consult for tomorrow.
--- NOTE | 2017-09-28 08:49 | Pharmacy Consult Notes ---
- Pharmacy Consult Date: 09/28/17 Time: 08:47 Referring provider: DR. DIETZ Reason for Consult:: TOBRAMYCIN DOSING Allergies and ADEs:: Allergies Allergy/AdvReac Type Severity Reaction Status Date / Time hydromorphone [From DILAUDID] Allergy Unknown Hallucinati Verified 09/27/17 19: 33 ng Home Medications:: Home Medications Medication Instructions Recorded Confirmed Type Lisinopril [Lisinopril 20mg Tab] 20 mg PO DAILY 05/17/17 09/28/17 History Amlodipine Besylate [Norvasc 5mg 5 mg PO DAILY 09/27/17 09/27/17 History tablet] Aspirin [Aspirin 81mg chewable 81 mg PO DAILY 09/27/17 09/27/17 History tab] Calcium Carbonate/Vitamin D3 1 each PO DAILY 09/27/17 09/27/17 History [Caltrate 600 Plus D3 Tablet] Cholecalciferol (Vitamin D3) 2,000 unit PO DAILY 09/27/17 09/27/17 History [Vitamin D3] Duloxetine HCl 60 mg PO DAILY 09/27/17 09/28/17 History Folic Acid [Folic Acid 1mg tablet] 1 mg PO DAILY 09/27/17 09/27/17 History Multivit with Iron-Minerals 1 each PO DAILY 09/27/17 09/27/17 History [Complete Senior] Potassium Chloride [Klor-Con 10 meq PO BID 09/27/17 09/27/17 History Sprinkle 10mEq] Pravastatin Sodium [Pravachol 40mg 40 mg PO HS 09/27/17 09/27/17 History Tablet] Pregabalin [Lyrica 100mg Cap] 100 mg PO TID 09/27/17 09/27/17 History Sucralfate [Sucralfate 1gm 1 gm PO TID 09/27/17 09/27/17 History Tab] clonazePAM [Clonazepam] 1 mg PO HS 09/27/17 09/27/17 History hydroCHLOROthiazide [HCTZ 12.5mg 12.5 mg PO DAILY 09/27/17 09/27/17 History capsule] Atenolol [Atenolol 25mg Tab] 25 mg PO DAILY 09/28/17 09/28/17 History Height: 1.4 m Weight: 58.712 kg Laboratory Results:: Laboratory Results - last 24 hr 09/27/17 19:25: WBC 25.4 H*, RBC 4.02 L, Hgb 12.2, Hct 38.7, MCV 96.3, MCH 30.5 , MCHC 31.6 L, RDW 13.1, Plt Count 244, MPV 8.2, Neut % (Auto) 93.8 H, Lymph % ( Auto) 2.9 L, [place] % (Auto) 3.0, Eos % (Auto) 0.2, Baso % (Auto) 0.2, Neut # ( Auto) 23.9 H, Lymph # (Auto) 0.7, [place] # (Auto) 0.8, Eos # (Auto) 0.0, Baso # ( Auto) 0.0, Total Counted 100, Neutrophils % (Manual) 95 H, Lymphocytes % (Manual ) 4 L, Monocytes % (Manual) 1 L, Platelet Estimate Normal, RBC Morphology Not Reportable, Anisocytosis 1+, Stomatocytes 1+ 09/27/17 19:25: Sodium 140, Potassium 2.0 L*, Chloride 100, Carbon Dioxide 26, Anion Gap 16.0 H, BUN 28 H, Creatinine 1.28 H, Estimated Creat Clear 32, Estimated GFR 40 L, Est GFR ( Amer) 49 L, Glucose 139 H, Calcium 9.5, Total Bilirubin 0.5, AST 22, ALT 27, Alkaline Phosphatase 121 H, Troponin I 0.03 , Total Protein 7.5, Albumin 2.3 L, Globulin 5.2 H, Albumin/Globulin Ratio 0.4 L 09/27/17 19:25: Lactic Acid 2.3 H 09/27/17 19:25: Ammonia 23 09/27/17 19:26: Specimen Source Left radial, O2 % 28, ABG pH 7.49 H, ABG pCO2 33.8 L, ABG pO2 61.2 L, ABG HCO3 24.9, ABG Total CO2 25.9, ABG O2 Saturation 92 , ABG Base Excess 1.5, Edgar Test Acceptable 09/27/17 19:50: Urine Color Yellow, Urine Appearance Sl cloudy, Urine pH 6.0, Ur Specific [place] 1.015, Urine Protein 2+, Urine Glucose (UA) Negative, Urine Ketones Negative, Urine Blood 2+, Urine Nitrate Positive, Urine Bilirubin Negative, Urine Urobilinogen 0.2, Ur Leukocyte Esterase 3+ A, Urine RBC Occasional, Urine WBC 50-100, Ur Squamous Epith Cells None, Urine Bacteria 3+ 09/27/17 23:04: Troponin I 0.05 09/27/17 23:04: Lactic Acid Fup @ 4Hr 1.2 09/28/17 00:50: Troponin I 0.05 09/28/17 00:50: Potassium 1.8 L* 09/28/17 03:55: Troponin I 0.04 09/28/17 05:00: WBC 19.0 H D, RBC 3.52 L, Hgb 10.9 L D, Hct 33.9 L, MCV 96.4, MCH 30.7, MCHC 31.9, RDW 13.4, Plt Count 184, MPV 8.0, Neut % (Auto) 92.0 H, Lymph % (Auto) 4.6 L, [place] % (Auto) 3.3, Eos % (Auto) 0.1, Baso % (Auto) 0.1, Neut # (Auto) 17.4 H, Lymph # (Auto) 0.9, [place] # (Auto) 0.6, Eos # (Auto) 0.0, Baso # (Auto) 0.0, Total Counted 100, Neutrophils % (Manual) 96 H, Lymphocytes % (Manual) 2 L, Monocytes % (Manual) 2, Platelet Estimate Normal, RBC Morphology Not Reportable, Anisocytosis 1+ 09/28/17 05:00: Sodium 143, Potassium 1.9 L*, Chloride 107, Carbon Dioxide 26, Anion Gap 11.9, BUN 25 H, Creatinine 0.98 D, Estimated Creat Clear 42, Estimated GFR 55 L, Est GFR ( Amer) 66 D, Glucose 118 H, Calcium 8.7 09/28/17 07:14: Random Tobramycin 3.7 Medical History: Reports:: Coronary Artery Disease, Hyperlipidemia, Hypertension Denies:: Cancer, Diabetes Mellitus Type 1, Diabetes Mellitus Type 2, Internal Pacemaker, MRSA, Seizures Assessment and Plan - Assessment and plan all Dx Assessment and Plan for all problems:: BASED ON PATIENT FACTORS, RECOMMEND TOBRAMYCIN 200MG IV Q24H (4MG/KG DBW). WILL OBTAIN LEVELS POST INFUSION AND ADJUST DOSE APPROPRIATE BASED ON THESE LEVELS. -DINA CORDOVAD
--- NOTE | 2017-09-28 13:52 | Pharmacy Consult Notes ---
- Pharmacy Consult Date: 09/28/17 Time: 13:50 Referring provider: DR. DICKENS Reason for Consult:: TOBRAMYCIN LEVELS Allergies and ADEs:: Allergies Allergy/AdvReac Type Severity Reaction Status Date / Time hydromorphone [From DILAUDID] Allergy Unknown Hallucinati Verified 09/27/17 19: 33 ng Home Medications:: Home Medications Medication Instructions Recorded Confirmed Type Lisinopril [Lisinopril 20mg Tab] 20 mg PO BID 05/17/17 09/28/17 History Amlodipine Besylate [Norvasc 5mg 5 mg PO DAILY 09/27/17 09/27/17 History tablet] Calcium Carbonate/Vitamin D3 1 each PO DAILY 09/27/17 09/27/17 History [Caltrate 600 Plus D3 Tablet] Cholecalciferol (Vitamin D3) 1,000 unit PO DAILY 09/27/17 09/28/17 History [Vitamin D3] Duloxetine HCl 60 mg PO BID 09/27/17 09/28/17 History Folic Acid [Folic Acid 1mg tablet] 1 mg PO DAILY 09/27/17 09/27/17 History Multivit with Iron-Minerals 1 each PO DAILY 09/27/17 09/27/17 History [Complete Senior] Potassium Chloride [Klor-Con 10 meq PO BID 09/27/17 09/27/17 History Sprinkle 10mEq] Pravastatin Sodium [Pravachol 40mg 40 mg PO HS 09/27/17 09/27/17 History Tablet] Pregabalin [Lyrica 100mg Cap] 100 mg PO TID 09/27/17 09/27/17 History Sucralfate [Sucralfate 1gm 1 gm PO TID 09/27/17 09/27/17 History Tab] clonazePAM [Clonazepam] 1 mg PO HS 09/27/17 09/27/17 History hydroCHLOROthiazide [HCTZ 12.5mg 12.5 mg PO DAILY 09/27/17 09/27/17 History capsule] Aspirin [Aspirin 81mg EC Tab] 81 mg PO DAILY 09/28/17 09/28/17 History Height: 1.4 m Weight: 58.712 kg Laboratory Results:: Laboratory Results - last 24 hr 09/27/17 19:25: WBC 25.4 H*, RBC 4.02 L, Hgb 12.2, Hct 38.7, MCV 96.3, MCH 30.5 , MCHC 31.6 L, RDW 13.1, Plt Count 244, MPV 8.2, Neut % (Auto) 93.8 H, Lymph % ( Auto) 2.9 L, [place] % (Auto) 3.0, Eos % (Auto) 0.2, Baso % (Auto) 0.2, Neut # ( Auto) 23.9 H, Lymph # (Auto) 0.7, [place] # (Auto) 0.8, Eos # (Auto) 0.0, Baso # ( Auto) 0.0, Total Counted 100, Neutrophils % (Manual) 95 H, Lymphocytes % (Manual ) 4 L, Monocytes % (Manual) 1 L, Platelet Estimate Normal, RBC Morphology Not Reportable, Anisocytosis 1+, Stomatocytes 1+ 09/27/17 19:25: Sodium 140, Potassium 2.0 L*, Chloride 100, Carbon Dioxide 26, Anion Gap 16.0 H, BUN 28 H, Creatinine 1.28 H, Estimated Creat Clear 32, Estimated GFR 40 L, Est GFR ( Amer) 49 L, Glucose 139 H, Calcium 9.5, Total Bilirubin 0.5, AST 22, ALT 27, Alkaline Phosphatase 121 H, Troponin I 0.03 , Total Protein 7.5, Albumin 2.3 L, Globulin 5.2 H, Albumin/Globulin Ratio 0.4 L 09/27/17 19:25: Lactic Acid 2.3 H 09/27/17 19:25: Ammonia 23 09/27/17 19:26: Specimen Source Left radial, O2 % 28, ABG pH 7.49 H, ABG pCO2 33.8 L, ABG pO2 61.2 L, ABG HCO3 24.9, ABG Total CO2 25.9, ABG O2 Saturation 92 , ABG Base Excess 1.5, Edgar Test Acceptable 09/27/17 19:50: Urine Color Yellow, Urine Appearance Sl cloudy, Urine pH 6.0, Ur Specific [place] 1.015, Urine Protein 2+, Urine Glucose (UA) Negative, Urine Ketones Negative, Urine Blood 2+, Urine Nitrate Positive, Urine Bilirubin Negative, Urine Urobilinogen 0.2, Ur Leukocyte Esterase 3+ A, Urine RBC Occasional, Urine WBC 50-100, Ur Squamous Epith Cells None, Urine Bacteria 3+ 09/27/17 23:04: Troponin I 0.05 09/27/17 23:04: Lactic Acid Fup @ 4Hr 1.2 09/28/17 00:50: Troponin I 0.05 09/28/17 00:50: Potassium 1.8 L* 09/28/17 03:55: Troponin I 0.04 09/28/17 05:00: WBC 19.0 H D, RBC 3.52 L, Hgb 10.9 L D, Hct 33.9 L, MCV 96.4, MCH 30.7, MCHC 31.9, RDW 13.4, Plt Count 184, MPV 8.0, Neut % (Auto) 92.0 H, Lymph % (Auto) 4.6 L, [place] % (Auto) 3.3, Eos % (Auto) 0.1, Baso % (Auto) 0.1, Neut # (Auto) 17.4 H, Lymph # (Auto) 0.9, [place] # (Auto) 0.6, Eos # (Auto) 0.0, Baso # (Auto) 0.0, Total Counted 100, Neutrophils % (Manual) 96 H, Lymphocytes % (Manual) 2 L, Monocytes % (Manual) 2, Platelet Estimate Normal, RBC Morphology Not Reportable, Anisocytosis 1+ 09/28/17 05:00: Sodium 143, Potassium 1.9 L*, Chloride 107, Carbon Dioxide 26, Anion Gap 11.9, BUN 25 H, Creatinine 0.98 D, Estimated Creat Clear 42, Estimated GFR 55 L, Est GFR ( Amer) 66 D, Glucose 118 H, Calcium 8.7 09/28/17 07:14: Random Tobramycin 3.7 09/28/17 13:10: Random Tobramycin 2.0 Medical History: Reports:: Coronary Artery Disease, Hyperlipidemia, Hypertension Denies:: Cancer, Diabetes Mellitus Type 1, Diabetes Mellitus Type 2, Internal Pacemaker, MRSA, Seizures Assessment and Plan (1) Hypokalemia Current visit: Yes Status: Acute Category: Medical Code(s): E87.6 - Hypokalemia (2) Renal insufficiency Current visit: Yes Status: Acute Category: Medical Code(s): N28.9 - Disorder of kidney and ureter, unspecified (3) UTI (urinary tract infection) Current visit: Yes Status: Acute Qualifiers: Urinary tract infection type: site unspecified Hematuria presence: without hematuria Qualified Code(s): N39.0 - Urinary tract infection, site not specified Category: Medical Code(s): N39.0 - Urinary tract infection, site not specified - Assessment and plan all Dx Assessment and Plan for all problems:: BASED ON POST-INFUSION TOBRAMYCIN LEVELS, RECOMMEND CONTINUING CURRENT DOSE OF 200MG IV Q24H. PHARMACY WILL CONTINUE TO MONITOR AND WILL ADJUST DOSE APPROPRIATE. -HUSAM ESPITIA, PHARMD
[2017-09-29 06:21] LABS: Anion Gap 10.1 mEq/L (5-15); Calcium 8.7 mg/dL (8.5-10.1)
[2017-09-29 06:26] LABS: Potassium 2.1 mmoL/L (3.5-5.1)
--- NOTE | 2017-09-29 07:46 | Progress Note ---
Internal Medicine - PN: Subj *Date: 09/29/17 *Time: 07:45 Interval history: Nursing staff reports that patient is much more alert when she is awake. Has been eating some more. No complaints from patient when shaken a little bit sleepy this morning. Exam Vital signs and Labs for Last 24 Hours: Temp Pulse Resp BP Pulse Ox 100.2 F H 101 H 18 138/60 96 09/29/17 04:00 09/29/17 04:00 09/29/17 04:00 09/29/17 04:00 09/29/17 04:00 Laboratory Results - last 24 hr 09/28/17 13:10: Random Tobramycin 2.0 09/28/17 18:56: Stl Aeromonas (PCR) Not detected, Stl C. cayetanensis PCR Not detected, Stool Rotavirus (PCR) Not detected, Stl Adenov F 40/41 PCR Not detected, Stool Astrovirus (PCR) Not detected, Stool Campylobacter PCR Not detected, Stl C.difficile Tox PCR Not detected, Stool Cryptosporidium PCR Not detected, Stl E.coli Shiga Tox PCR Not detected, Stool E coli O157 PCR Not detected, Stl Enterotoxigenic E PCR Not detected, Stool EPEC (PCR) Not detected , Stool EAEC (PCR) Not detected, Stl E. histolytica PCR Not detected, Stool Giardia Lamblia PCR Not detected, Stool Salmonella PCR Not detected, Stool Sapovirus (PCR) Not detected, Stl P. shigelloides PCR Not detected, Stl Shigella /EIEC PCR Not detected, St Y.enterocolitica PCR Not detected, Stool Vibrio (PCR ) Not detected, Stl Vibrio cholerae PCR Not detected, Stl Norovirus GI/GII PCR Not detected 09/29/17 06:00: Sodium 142, Potassium 2.1 L*, Chloride 108 H, Carbon Dioxide 26 , Anion Gap 10.1, BUN 19 H, Creatinine 0.82, Estimated Creat Clear 41, Estimated GFR 67, Est GFR ( Amer) 81 D, Glucose 148 H, Calcium 8.7 I & O for Last 24 hours: Intake & Output 09/26/17 09/27/17 09/28/17 09/29/17 11:59 11:59 11:59 11:59 Intake Total 1740 / 1740 1020 / 1020 Output Total 900 / 900 2450 / 2450 Balance 840 / 840 -1430 / -1430 Weight 129 lb 7 oz 124 lb 1 oz Microbiology Reports for the Last 24 Hours: Microbiology 09/27/17 19:50 Urine,Catheterized Urine Culture - Final Klebsiella pneumoniae Narrative: Patient's pleasant, a little sleepy this morning. Anterior lung arias are clear, abdomen soft, heart rate regular. Paige catheter draining clear yellow urine. Previously noted toe deformities are noted but patient has no edema or clubbing. Assessment and Plan (1) Hypokalemia Current visit: Yes Status: Acute Category: Medical Code(s): E87.6 - Hypokalemia Significant hypokalemia continues but is slightly improved. Continue potassium replacement and monitor tomorrow. (2) Renal insufficiency Current visit: Yes Status: Acute Category: Medical Code(s): N28.9 - Disorder of kidney and ureter, unspecified Acute kidney injury is improving (3) UTI (urinary tract infection) Current visit: Yes Status: Acute Qualifiers: Urinary tract infection type: site unspecified Hematuria presence: without hematuria Qualified Code(s): N39.0 - Urinary tract infection, site not specified Category: Medical Code(s): N39.0 - Urinary tract infection, site not specified Secondary to Klebsiella. Continue antibiotics. PT consult today for significant immobility issues. Leukocytosis improving. Will remove Paige catheter today to assist with mobility.
[2017-09-30 06:16] LABS: Basophils % 0.1 % (0.1-2.0); Eosinophils % 0.2 % (0.1-12.0); Hematocrit 32.4 % (37.0-47.0); Hemoglobin 10.1 g/dL (12.2-16.2); Lymphocytes # 0.9 K/mm3 (0.7-4.5); Mean Corpuscular HGB Conc 31.1 g/dL (31.8-35.4); Mean Corpuscular Volume 96.2 fl (81-99); Mean Platelet Volume 8.3 fl (7.4-10.4); Monocytes # 0.4 K/mm3 (0.1-1.0); Monocytes % 4.3 % (1.7-9.3); Neutrophils # 7.1 K/mm3 (1.8-7.8); Neutrophils % 84.3 % (37.0-80.0); Platelet Count 203 K/mm3 (142-424); Red Blood Count 3.37 M/mm3 (4.20-5.40); Red Cell Distribution Width 13.5 % (11.5-17.5); White Blood Count 8.5 K/mm3 (4.8-10.8)
[2017-09-30 07:04] LABS: Albumin Level 1.7 gm/dL (3.4-5.0); Albumin/Globulin Ratio 0.4 (1.1-1.8); Bilirubin,Total 0.4 mg/dL (0.2-1.0); Calcium 8.5 mg/dL (8.5-10.1); Globulin 4.5 gm/dl (1.3-3.2); Total Protein,Serum 6.2 gm/dL (6.4-8.2)
[2017-09-30 07:23] LABS: Anion Gap 10.5 mEq/L (5-15)
[2017-09-30 07:30] LABS: Potassium 2.5 mmoL/L (3.5-5.1)
--- NOTE | 2017-09-30 08:41 | Progress Note ---
Internal Medicine - PN: Subj *Date: 09/30/17 *Time: 07:38 Interval history: Patient is sitting up in bed eating breakfast. She is without complaints. Please, alert and oriented at baseline. Rate and rhythm regular. No edema. Anterior lung arias are clear. Abdomen soft and nontender. Exam Vital signs and Labs for Last 24 Hours: Temp Pulse Resp BP Pulse Ox 99.9 F H 66 18 130/60 97 09/30/17 07:21 09/30/17 07:21 09/30/17 07:21 09/30/17 07:21 09/30/17 07:21 Laboratory Results - last 24 hr 09/30/17 05:50: WBC 8.5 D, RBC 3.37 L, Hgb 10.1 L, Hct 32.4 L, MCV 96.2, MCH 30.0, MCHC 31.1 L, RDW 13.5, Plt Count 203, MPV 8.3, Neut % (Auto) 84.3 H, Lymph % (Auto) 11.0, [place] % (Auto) 4.3, Eos % (Auto) 0.2, Baso % (Auto) 0.1, Neut # (Auto) 7.1, Lymph # (Auto) 0.9, [place] # (Auto) 0.4, Eos # (Auto) 0.0, Baso # (Auto) 0.0 09/30/17 05:50: Sodium 143, Potassium 2.5 L*, Chloride 108 H, Carbon Dioxide 27 , Anion Gap 10.5, BUN 14 D, Creatinine 0.73, Estimated Creat Clear 44, Estimated GFR 77, Est GFR ( Amer) 93, Glucose 127 H, Calcium 8.5, Total Bilirubin 0.4, AST 28 D, ALT 26, Alkaline Phosphatase 79, Total Protein 6.2 L, Albumin 1.7 L, Globulin 4.5 H, Albumin/Globulin Ratio 0.4 L I & O for Last 24 hours: Intake & Output 09/27/17 09/28/17 09/29/17 09/30/17 11:59 11:59 11:59 11:59 Intake Total 1740 / 1740 1080 / 1080 1014 / 1014 Output Total 900 / 900 2450 / 2450 1725 / 1725 Balance 840 / 840 -1370 / -1370 -711 / -711 Weight 129 lb 7 oz 124 lb 1 oz 134 lb 8 oz Microbiology Reports for the Last 24 Hours: Microbiology 09/27/17 19:25 Blood Blood Culture - Preliminary NO GROWTH AFTER 48 HOURS 09/27/17 19:25 Blood Blood Culture - Preliminary NO GROWTH AFTER 48 HOURS 09/27/17 19:50 Urine,Catheterized Urine Culture - Final Klebsiella pneumoniae Assessment and Plan (1) Hypokalemia Current visit: Yes Status: Acute Category: Medical Code(s): E87.6 - Hypokalemia (2) Renal insufficiency Current visit: Yes Status: Acute Category: Medical Code(s): N28.9 - Disorder of kidney and ureter, unspecified (3) UTI (urinary tract infection) Current visit: Yes Status: Acute Qualifiers: Urinary tract infection type: site unspecified Hematuria presence: without hematuria Qualified Code(s): N39.0 - Urinary tract infection, site not specified Category: Medical Code(s): N39.0 - Urinary tract infection, site not specified - Assessment and plan all Dx Assessment and Plan for all problems:: Continue IV antibiotics. Potassium is improving. Continue oral replacement as ordered. Recheck in the am. Will consider D/C home tomorrow with outpatient PT.
--- NOTE | 2017-09-30 11:03 | Pharmacy Consult Notes ---
- Pharmacy Consult Date: 09/30/17 Time: 11:02 Referring provider: DR. DICKENS Reason for Consult:: TOBRAMYCIN LEVEL Allergies and ADEs:: Allergies Allergy/AdvReac Type Severity Reaction Status Date / Time hydromorphone [From DILAUDID] Allergy Unknown Hallucinati Verified 09/27/17 19: 33 ng Home Medications:: Home Medications Medication Instructions Recorded Confirmed Type Lisinopril [Lisinopril 20mg Tab] 20 mg PO BID 05/17/17 09/28/17 History Amlodipine Besylate [Norvasc 5mg 5 mg PO DAILY 09/27/17 09/27/17 History tablet] Calcium Carbonate/Vitamin D3 1 each PO DAILY 09/27/17 09/27/17 History [Caltrate 600 Plus D3 Tablet] Cholecalciferol (Vitamin D3) 1,000 unit PO DAILY 09/27/17 09/28/17 History [Vitamin D3] Duloxetine HCl 60 mg PO BID 09/27/17 09/28/17 History Folic Acid [Folic Acid 1mg tablet] 1 mg PO DAILY 09/27/17 09/27/17 History Multivit with Iron-Minerals 1 each PO DAILY 09/27/17 09/27/17 History [Complete Senior] Potassium Chloride [Klor-Con 10 meq PO BID 09/27/17 09/27/17 History Sprinkle 10mEq] Pravastatin Sodium [Pravachol 40mg 40 mg PO HS 09/27/17 09/27/17 History Tablet] Pregabalin [Lyrica 100mg Cap] 100 mg PO TID 09/27/17 09/27/17 History Sucralfate [Sucralfate 1gm 1 gm PO TID 09/27/17 09/27/17 History Tab] clonazePAM [Clonazepam] 1 mg PO HS 09/27/17 09/27/17 History hydroCHLOROthiazide [HCTZ 12.5mg 12.5 mg PO DAILY 09/27/17 09/27/17 History capsule] Aspirin [Aspirin 81mg EC Tab] 81 mg PO DAILY 09/28/17 09/28/17 History Height: 1.55 m Weight: 61.008 kg Laboratory Results:: Laboratory Results - last 24 hr 09/30/17 05:50: WBC 8.5 D, RBC 3.37 L, Hgb 10.1 L, Hct 32.4 L, MCV 96.2, MCH 30.0, MCHC 31.1 L, RDW 13.5, Plt Count 203, MPV 8.3, Neut % (Auto) 84.3 H, Lymph % (Auto) 11.0, [place] % (Auto) 4.3, Eos % (Auto) 0.2, Baso % (Auto) 0.1, Neut # (Auto) 7.1, Lymph # (Auto) 0.9, [place] # (Auto) 0.4, Eos # (Auto) 0.0, Baso # (Auto) 0.0 09/30/17 05:50: Sodium 143, Potassium 2.5 L*, Chloride 108 H, Carbon Dioxide 27 , Anion Gap 10.5, BUN 14 D, Creatinine 0.73, Estimated Creat Clear 44, Estimated GFR 77, Est GFR ( Amer) 93, Glucose 127 H, Calcium 8.5, Total Bilirubin 0.4, AST 28 D, ALT 26, Alkaline Phosphatase 79, Total Protein 6.2 L, Albumin 1.7 L, Globulin 4.5 H, Albumin/Globulin Ratio 0.4 L 09/30/17 10:10: Random Tobramycin 2.4 Medical History: Reports:: Coronary Artery Disease, Hyperlipidemia, Hypertension Denies:: Cancer, Diabetes Mellitus Type 1, Diabetes Mellitus Type 2, Internal Pacemaker, MRSA, Seizures Assessment and Plan (1) Hypokalemia Current visit: Yes Status: Acute Category: Medical Code(s): E87.6 - Hypokalemia (2) Renal insufficiency Current visit: Yes Status: Acute Category: Medical Code(s): N28.9 - Disorder of kidney and ureter, unspecified (3) UTI (urinary tract infection) Current visit: Yes Status: Acute Qualifiers: Urinary tract infection type: site unspecified Hematuria presence: without hematuria Qualified Code(s): N39.0 - Urinary tract infection, site not specified Category: Medical Code(s): N39.0 - Urinary tract infection, site not specified - Assessment and plan all Dx Assessment and Plan for all problems:: BASED ON PATIENT FACTORS AND 12-HOUR POST INFUSION LEVEL OF 2.4, RECOMMEND CONTINUING CURRENT TOBRAMYCIN DOSE OF 320MG EVERY 24 HOURS. PHARMACY WILL CONTINUE TO MONITOR AND WILL ADJUST DOSE APPROPRIATE. -DINA CORDOVAD
[2017-10-01 06:26] LABS: Anion Gap 8.2 mEq/L (5-15); Calcium 8.5 mg/dL (8.5-10.1); Potassium 3.2 mmoL/L (3.5-5.1)
--- NOTE | 2017-10-01 06:47 | Discharge Summary ---
General - General Admission date:: 09/27/17 Discharge date: 10/01/17 HPI HPI: 77 year old female with multiple chronic medical conditions presented to the ED with lethargy and confusion. Patient had been residing with a sitter as her daughter has been out of town. The sitter reports patient has been lethargic for a few days with increased confusion. In the ED, she was found to have febrile UTI with temp 103. WBC was 25.4. She was significantly hypokalemic at 1.8. Patient was admitted for IV antibiotics, potassium replacement and further evaluation. This morning, patient is alert but confused. Fevers are improving. Potassium continues to be low at 1.9. Reports some dysuria. Hospital Course Hospital Course: Patient was admitted, found to have significant hypokalemia as noted in the HPI , potassium was replaced orally and increased in a stepwise fashion, this morning is 3.2. Patient was found to have urinary tract infection with Klebsiella, pansensitive to all antibiotics tested. She responded very nicely to antibiotics and begin to eat a little better. Significant immobility was noted PT evaluation was done. Patient improved vis- -vis ambulatory effort and activity over the next 3-4 days and was felt to be suitable for outpatient physical therapy. She lives with her daughter who is able to bring her back to the PT appointments on a regular basis. Patient was improved this morning, eating well. She will be discharged home with antibiotics, potassium therapy and cessation of her HCTZ as noted below. We will follow her in the office next week. Objective Vital signs: Temp Pulse Resp BP Pulse Ox 98.9 F 53 L 18 142/95 97 10/01/17 04:00 10/01/17 04:00 10/01/17 04:00 10/01/17 04:00 10/01/17 04:00 Narrative: Patient is alert, pleasant. Oriented. Lungs are clear in the anterior arias, abdomen soft, no edema or clubbing. She is able to move all extremities. Results Labs on day of discharge: Labs from last 24 hours 10/01/17 09/30/17 09/30/17 05:32 10:10 05:50 Sodium 141 143 Potassium 3.2 L D 2.5 L* Chloride 106 108 H Carbon Dioxide 30 27 Anion Gap 8.2 10.5 BUN 11 14 D Creatinine 0.65 0.73 Estimated Creat Clear 42 44 Estimated GFR 88 77 Est GFR ( Amer) 106 93 Glucose 113 H 127 H Calcium 8.5 8.5 Total Bilirubin 0.4 AST 28 D ALT 26 Alkaline Phosphatase 79 Total Protein 6.2 L Albumin 1.7 L Globulin 4.5 H Albumin/Globulin Ratio 0.4 L Random Tobramycin 2.4 Preliminary micro results at discharge 09/27/17 19:25 Blood Culture - Preliminary Blood NO GROWTH AFTER 48 HOURS 09/27/17 19:25 Blood Culture - Preliminary Blood NO GROWTH AFTER 48 HOURS DS: Diagnosis - Discharge Diagnosis (1) Hypokalemia Status: Resolved (2) Renal insufficiency Status: Resolved (3) UTI (urinary tract infection) Status: Acute Discharge Plan - Patient Discharge Instructions ACTIVITY: Continue current activity DIET: continue same diet Additional Instructions: Please make outpatient appointment with physical therapy for gait training, balance training and conditioning next week. Patient Instructions: Urinary Tract Infection, Kidney Failure, DI for Sepsis - - Adult, Hypokalemia - Follow up Plan Follow up with: Demetra Meyer APRN [Nurse Practitioner] - 10/07/17 Disposition: Home, Self-Senior Care Medications: Home Medications Medication Instructions Recorded Confirmed Type Lisinopril [Lisinopril 20mg Tab] 20 mg PO BID 05/17/17 09/28/17 History Amlodipine Besylate [Norvasc 5mg 5 mg PO DAILY 09/27/17 09/27/17 History tablet] Calcium Carbonate/Vitamin D3 1 each PO DAILY 09/27/17 09/27/17 History [Caltrate 600 Plus D3 Tablet] Cholecalciferol (Vitamin D3) 1,000 unit PO DAILY 09/27/17 09/28/17 History [Vitamin D3] Duloxetine HCl 60 mg PO BID 09/27/17 09/28/17 History Folic Acid [Folic Acid 1mg tablet] 1 mg PO DAILY 09/27/17 09/27/17 History Multivit with Iron-Minerals 1 each PO DAILY 09/27/17 09/27/17 History [Complete Senior] Pravastatin Sodium [Pravachol 40mg 40 mg PO HS 09/27/17 09/27/17 History Tablet] Pregabalin [Lyrica 100mg Cap] 100 mg PO TID 09/27/17 09/27/17 History Sucralfate [Sucralfate 1gm 1 gm PO TID 09/27/17 09/27/17 History Tab] clonazePAM [Clonazepam] 1 mg PO HS 09/27/17 09/27/17 History hydroCHLOROthiazide [HCTZ 12.5mg 12.5 mg PO DAILY 09/27/17 09/27/17 History capsule] Aspirin [Aspirin 81mg EC Tab] 81 mg PO DAILY 09/28/17 09/28/17 History Prescriptions/Medication Reconciliation: New Cefdinir [Omnicef 300mg Capsule] 300 mg PO BID #14 cap Continue Sucralfate [Sucralfate 1gm Tab] 1 gm PO TID Pregabalin [Lyrica 100mg Cap] 100 mg PO TID Pravastatin Sodium [Pravachol 40mg Tablet] 40 mg PO HS Multivit with Iron-Minerals [Complete Senior] 1 each PO DAILY Folic Acid [Folic Acid 1mg tablet] 1 mg PO DAILY clonazePAM [Clonazepam] 1 mg PO HS Cholecalciferol (Vitamin D3) [Vitamin D3] 1,000 unit PO DAILY Calcium Carbonate/Vitamin D3 [Caltrate 600 Plus D3 Tablet] 1 each PO DAILY Amlodipine Besylate [Norvasc 5mg tablet] 5 mg PO DAILY Aspirin [Aspirin 81mg EC Tab] 81 mg PO DAILY Lisinopril [Lisinopril 20mg Tab] 20 mg PO BID Duloxetine HCl 60 mg PO BID Changed Potassium Chloride [Klor-Con Sprinkle 10mEq] 20 meq PO BID 30 Days #60 capsule.er Discontinued hydroCHLOROthiazide [HCTZ 12.5mg capsule] 12.5 mg PO DAILY Other Amb Orders: Basic Metabolic Panel Time Frame: 10/04/17, Location: None Selected
[2017-10-01 08:26] VITALS: BP 114/53
== END 2017-10-01 09:25 | disposition home or self-care (01) ==
LOC: 2ND 19:12 → ER 19:12 → OBSVTOIN 21:53 → 2ND 21:54
PROVIDERS: ADMIT Emergency Medicine; ATTEND Internal Medicine Adolescent Medicine

== ENCOUNTER → 2017-10-12 10:32 | Outpatient (POV) | payer MEDICARE, BC, SELFPAY ==
[2017-10-12 11:08] VITALS: BP 131/52; PULSE 75; RESP 18; O2SAT 98; BMI 29.5
--- NOTE | 2017-10-12 11:38 | [facility].PAINSOAP ---
[facility] Pain Management SOAP Note Subjective:: Patient is a pleasant 77-year-old white female who presents today for follow-up. Patient presented 2 weeks ago with OCD repetitive-like behaviors and confusion. Patient has an intrathecal pain pump with fentanyl which we adjusted and decreased to a periodic flow of 37.5 mcg every 2 hours for a total daily dose of 450 mcg. Patient is doing quite well at this time. Patient also subsequently had a UTI. This is been treated. Patient's main complaint of pain is on her bunions on her right foot. Patient states overall she is doing well and not having any side effects to her infusion. Patient is being filled by basic home infusion. ROS General: no recent weight change, no fever, no sleep disturbances Respiratory: no cough, no shortness of air, no recurring pulmonary infections Cardiovascular/Peripheral Vascular: No chest pain, No palpitations, no edema, no shortness of breath. Gastrointestinal: no incontinence, normal bowel movements reported Genitourinary: no incontinence Musculoskeletal: Back pain Psychiatric: normal mood/ affect Neurological: [denies new weakness in extremities], [denies balance issues] Objective:: Physical Exam General: Alert and oriented x3, no acute distress, pleasant and cooperative, [on room air] Lungs: Resps E/U, Symmetrical chest expansion, Eyes: PERRL Musculoskeletal: Flexion and extension of lumbar spine somewhat guarded secondary to pain, deep tendon reflexes normal, strength in upper and lower extremities [5/5], [abnormal gait noted] Neurological: speech clear, offset lithographic press operator equal, no gross sensory deficits Assessment:: 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 Patient's been instructed to call the office if she has any issues prior to this. This note was dictated using voice recognition software and may contain errors or omissions
--- NOTE | 2017-10-12 11:41 | P.CONS_ITS ---
[facility] Pain Management SOAP Note Subjective:: Patient is a pleasant 77-year-old white female who presents today for follow- up. Patient presented 2 weeks ago with OCD repetitive-like behaviors and confusion. Patient has an intrathecal pain pump with fentanyl which we adjusted and decreased to a periodic flow of 37.5 mcg every 2 hours for a total daily dose of 450 mcg. Patient is doing quite well at this time. Patient also subsequently had a UTI. This is been treated. Patient's main complaint of pain is on her bunions on her right foot. Patient states overall she is doing well and not having any side effects to her infusion. Patient is being filled by basic home infusion. ROS General: no recent weight change, no fever, no sleep disturbances Respiratory: no cough, no shortness of air, no recurring pulmonary infections Cardiovascular/Peripheral Vascular: No chest pain, No palpitations, no edema, no shortness of breath. Gastrointestinal: no incontinence, normal bowel movements reported Genitourinary: no incontinence Musculoskeletal: Back pain Psychiatric: normal mood/ affect Neurological: [denies new weakness in extremities], [denies balance issues] Objective:: Physical Exam General: Alert and oriented x3, no acute distress, pleasant and cooperative, [ on room air] Lungs: Resps E/U, Symmetrical chest expansion, Eyes: PERRL Musculoskeletal: Flexion and extension of lumbar spine somewhat guarded secondary to pain, deep tendon reflexes normal, strength in upper and lower extremities [5/5], [abnormal gait noted] Neurological: speech clear, air traffic control specialist center equal, no gross sensory deficits Assessment:: 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 Patient's been instructed to call the office if she has any issues prior to this. This note was dictated using voice recognition software and may contain errors or omissions
== END ==
PROVIDERS: Family Provider Family Medicine; PCP Internal Medicine Adolescent Medicine; Visit Provider Clinical Nurse Specialist Family Health
DX: M54.16 Radiculopathy, lumbar region (principal)
CPT/HCPCS: 99212

== ENCOUNTER 2017-10-20 08:16 | Observation (INO) ==
--- NOTE | 2017-10-20 08:39 | Emergency Department Note ---
ED Disposition Clinical Impression: Rib fractures, Hypokalemia Disposition: Admitted as Observation Condition on Discharge: Good - Critical Care Critical Care Time: No Attestation: On , the high probability of a clinically significant, sudden or life threatening deterioration of the following system(s) required my full and direct attention, intervention and personal management. The time I documented below is in addition to time spent performing reported procedures but includes the following listed in this critical care notation. Medical Decision Making - Medical Records MR Comment: 1048am. Vision with hypokalemia of 2.5 and 2 rib fractures and fall near syncope/syncope. call to Dr. Lopez. sHe has history of thoracic fractures and we are getting a CAT scan of her thoracic vertebrae to rule out any other fractures that are acute. 1143 I have discussed with Dr Posada he accepted patient. awaiting final reads of CT lumbar thoracic prior to admit here. 1216 CT lumbar spine per radiologist no acute disease CT thoracic spine came back with old fractures and one area age-indeterminate. Nothing to prevent admission here. will place admit orders. - [place] Inquiry Pt receiving controlled substance: No Vital Signs: 10/20/17 08:18 10/20/17 08:22 10/20/17 09:48 Temperature 97.6 F 97.9 F Temperature Source Oral Oral Pulse Rate [Left Radial] 69 75 62 Respiratory Rate 24 24 16 Blood Pressure [Right Arm] 138/80 138/80 139/68 Blood Pressure Mean [Right Arm] 99 99 91 Blood Pressure Source [Right Arm] Automatic Cuff Automatic Cuff Automatic Cuff Blood Pressure Position [Right Arm] Sitting Sitting Sitting 02 Sat by Pulse Oximetry 96 95 97 Oxygen Delivery Method Room Air Room Air Room Air 10/20/17 10:00 10/20/17 10:34 10/20/17 11:24 Temperature Temperature Source Pulse Rate [Left Radial] 61 59 L 60 Respiratory Rate 16 16 16 Blood Pressure [Right Arm] 137/68 144/82 150/72 Blood Pressure Mean [Right Arm] 91 102 98 Blood Pressure Source [Right Arm] Automatic Cuff Automatic Cuff Automatic Cuff Blood Pressure Position [Right Arm] Sitting Sitting Sitting 02 Sat by Pulse Oximetry 92 L 91 L 94 L Oxygen Delivery Method Room Air Room Air Room Air 10/20/17 11:34 10/20/17 11:58 10/20/17 12:05 Temperature Temperature Source Pulse Rate [Left Radial] 60 60 62 Respiratory Rate 16 18 Blood Pressure [Right Arm] 166/87 142/63 142/63 Blood Pressure Mean [Right Arm] 113 89 89 Blood Pressure Source [Right Arm] Automatic Cuff Automatic Cuff Blood Pressure Position [Right Arm] Sitting Sitting Sitting 02 Sat by Pulse Oximetry 94 L 93 L 94 L Oxygen Delivery Method Room Air Room Air Room Air - Lab Data Lab Results 10/20/17 09:30: Urine Color Yellow, Urine Appearance Clear, Urine pH 7.0, Ur Specific [place] 1.015, Urine Protein Negative, Urine Glucose (UA) Negative, Urine Ketones Negative, Urine Blood Negative, Urine Nitrate Negative, Urine Bilirubin Negative, Urine Urobilinogen 0.2, Ur Leukocyte Esterase Negative, Urine WBC 5-10, Ur Squamous Epith Cells Occasional, Urine Bacteria Trace, Urine Mucus Trace 10/20/17 09:45: WBC 4.7 L, RBC 3.28 L, Hgb 10.2 L, Hct 31.6 L, MCV 96.4, MCH 31.2, MCHC 32.4, RDW 14.5, Plt Count 124 L, MPV 8.0, Neut % (Auto) 67.6, Lymph % (Auto) 21.8, [place] % (Auto) 3.4, Eos % (Auto) 6.7, Baso % (Auto) 0.5, Neut # ( Auto) 3.2, Lymph # (Auto) 1.0, [place] # (Auto) 0.2, Eos # (Auto) 0.3, Baso # (Auto ) 0.0 10/20/17 09:45: Sodium 145, Potassium 2.5 L*, Chloride 105, Carbon Dioxide 36 H , Anion Gap 6.5, BUN 12, Creatinine 0.72, Estimated Creat Clear 41, Estimated GFR 78, Est GFR ( Amer) 95, Glucose 91, Calcium 9.0, Total Bilirubin 0.5 , AST 23, ALT 21, Alkaline Phosphatase 72, Troponin I < 0.02, Total Protein 6.9 , Albumin 3.0 L, Globulin 3.9 H, Albumin/Globulin Ratio 0.8 L Result diagrams: 10/20/17 09:45 10/20/17 09:45 Orders (Tests/Meds): ED MEDICATIONS Generic Name Dose Route Start Last Admin Trade Name Freq PRN Reason Stop Dose Admin Potassium Chloride/Water 100 mls @ 50 mls/hr 10/20/17 10:44 10/20/17 11:15 Potassium Chloride 20meq/100ml Ivpb IV 10/20/17 12:43 50 mls/hr ONCE ONE Administration Discontinued Medications Generic Name Dose Route Start Last Admin Trade Name Shelly PRN Reason Stop Dose Admin Potassium Chloride 40 meq 10/20/17 10:45 10/20/17 11:15 Klor-Con 20meq Tablet PO 10/20/17 10:46 40 meq ONCE ONE Administration - ECG Data Tracing #1 ER EKG read by myself shows normal sinus rhythm rate of 62, normal axis, no QT prolongation, unremarkable EKG General Adult HPI - General Chief complaint: Fall Stated complaint: AO [id number] Fall @ home left rib pain Time Seen by Provider: 10/20/17 08:39 Mode of Arrival: Wheelchair Limitations: No Limitations Description of Symptoms (Recalled from ER Triage Doc. by RN): Pt states that she fell yesterday around 1600 when she tripped over a root in the yard. States she was there about 20 minutes before she was able to get herself up. States she hit her head but denies any LOC and she rolled over and hit her left side and comes into with left rib pain. - History of Present Illness HPI narrative: Patient states she fell today tripped but then she hit her head she states she had some neck pain and some left rib pain moderately no radiation worse with movement as well as some right shoulder pain and some right knee pain. She states she was made of loss consciousness she is not certain. He states she laid on the ground for around 20 minutes then managed to get up and walks home until her family member came initially she felt too weak to get up and walk. - Related Data Home Medications Medication Instructions Recorded Confirmed Lisinopril [Lisinopril 20mg Tab] 20 mg PO BID 05/17/17 10/20/17 Amlodipine Besylate [Norvasc 5mg 5 mg PO DAILY 09/27/17 10/20/17 tablet] Calcium Carbonate/Vitamin D3 1 each PO DAILY 09/27/17 10/20/17 [Caltrate 600 Plus D3 Tablet] Cholecalciferol (Vitamin D3) 1,000 unit PO DAILY 09/27/17 10/20/17 [Vitamin D3] Duloxetine HCl 60 mg PO BID 09/27/17 10/20/17 Folic Acid [Folic Acid 1mg tablet] 1 mg PO DAILY 09/27/17 10/20/17 Multivit with Iron-Minerals 1 each PO DAILY 09/27/17 10/20/17 [Complete Senior] Pravastatin Sodium [Pravachol 40mg 40 mg PO HS 09/27/17 10/20/17 Tablet] Pregabalin [Lyrica 100mg Cap] 100 mg PO TID 09/27/17 10/20/17 Sucralfate [Sucralfate 1gm 1 gm PO TID 09/27/17 10/20/17 Tab] clonazePAM [Clonazepam] 1 mg PO HS 09/27/17 10/20/17 Aspirin [Aspirin 81mg EC Tab] 81 mg PO DAILY 09/28/17 10/20/17 Fentanyl Citrate/Pf [Fentanyl 1 dose IV DAILY 10/20/17 10/20/17 1,000 Mcg/20 ml Syrng] Previous Rx's Medication Instructions Recorded Potassium Chloride [Klor-Con 20 meq PO BID 30 Days #60 10/01/17 Sprinkle 10mEq] capsule.er Allergies Allergy/AdvReac Type Severity Reaction Status Date / Time hydromorphone [From DILAUDID] Allergy Unknown Hallucinati Verified 09/27/17 19: [address] [facility] History I have reviewed the patient's past medical history: Yes Medical History: Reports:: Coronary Artery Disease, Hyperlipidemia, Hypertension Denies:: Cancer, Diabetes Mellitus Type 1, Diabetes Mellitus Type 2, Internal Pacemaker, MRSA, Seizures Other Medical History: Reports: Arthritis, Sinus Problems. Denies: Blood Transfusion Reaction Laterality Cases: Right: Arthroscopy Knee Other Surgeries: Yes: Cardiac Catheterization, Coronary Stent. No: Pacemaker Amputation: No Fractures: No - Social History Smoking Status: Current every day smoker Tobacco Type: cigarettes # Packs/Day (cigarettes): 1 Alcohol Intake: never Occupational Status: unemployed Housing: house Household Members: family - Psychiatric History Expresses thoughts of harming self/others: None Suicide Plan Description: No Plan Family Hx:: No significant family history ROS Obtained: Yes All systems reviewed & no additional complaints Physical Exam General Appearance: Nontoxic Head: Normocephalic, without obvious abnormality, atraumatic. Eyes: conjunctiva/corneas clear ENT: Mucous membranes moist. Neck: No jugular venous distention. Cardiac: regular rate and rhythm Lungs: Clear to auscultation bilaterally Abdomen: Nontender, Nondistended, positive bowel sounds, no rebound : No CVA tenderness Extremities: no edema Musculoskeletal: C-spine tender Thoracic spine tender Lumbar spine nontender Chest wall left ribs tender Arms nontender except for right shoulder tenderness Legs nontender except for right knee tenderness Pelvis stable AP lateral compression Skin: No rashes or lesions to exposed skin. Neurologic: Alert and oriented x3 Cranial nerves intact Strength 5 out of 5 Sensation intact to light touch Psychiatric: Normal affect - General General appearance: alert - Respiratory Respiratory exam: Present: normal lung sounds bilaterally - Cardiovascular Cardiovascular exam: Present: regular rate - Neurological Exam Neurological exam: Present: alert
[2017-10-20 09:38] LABS: Microscopic, Urine URINE MICROSCOPIC (MICROSCOPIC)
[2017-10-20 09:39] LABS: Appearance,Urine CLEAR (Clear); Bilirubin,Urine Negative (Negative); Blood, Urine Negative (Negative); Color,Urine YELLOW (Yellow); Glucose,Urine (UA) Negative (Negative); Ketones,Urine Negative (Negative); Leukocyte Esterase,Urine Negative (Negative); Protein,Urine Negative (Negative); Specific Gravity, Urine 1.015 (1.005-1.030); Urobilinogen,Urine 0.2 EU/dl (0.2)
[2017-10-20 09:56] LABS: Basophils % 0.5 % (0.1-2.0); Eosinophils # 0.3 K/mm3 (0.0-0.4); Eosinophils % 6.7 % (0.1-12.0); Hematocrit 31.6 % (37.0-47.0); Hemoglobin 10.2 g/dL (12.2-16.2); Lymphocytes % 21.8 K/mm3 (10-50); Mean Corpuscular HGB Conc 32.4 g/dL (31.8-35.4); Mean Corpuscular Hemoglobin 31.2 pg (27.0-31.2); Mean Corpuscular Volume 96.4 fl (81-99); Monocytes # 0.2 K/mm3 (0.1-1.0); Monocytes % 3.4 % (1.7-9.3); Neutrophils # 3.2 K/mm3 (1.8-7.8); Neutrophils % 67.6 % (37.0-80.0); Platelet Count 124 K/mm3 (142-424); Red Blood Count 3.28 M/mm3 (4.20-5.40); Red Cell Distribution Width 14.5 % (11.5-17.5); White Blood Count 4.7 K/mm3 (4.8-10.8)
[2017-10-20 10:11] LABS: Alanine Aminotransferase 21 U/L (12-78); Albumin/Globulin Ratio 0.8 (1.1-1.8); Alkaline Phosphatase 72 U/L (46-116); Anion Gap 6.5 mEq/L (5-15); Aspartate Amino Transferase 23 U/L (15-37); Bilirubin,Total 0.5 mg/dL (0.2-1.0); Blood Urea Nitrogen 12 mg/dL (7-18); Carbon Dioxide 36 mmol/L (21.0-32.0); Chloride 105 mmol/L (98-107); Globulin 3.9 gm/dl (1.3-3.2); Glucose 91 mg/dL (74-106); Sodium 145 mmol/L (136-145); Total Protein,Serum 6.9 gm/dL (6.4-8.2)
[2017-10-20 10:16] LABS: Potassium 2.5 mmoL/L (3.5-5.1)
[2017-10-20 10:39] LABS: Bacteria,Urine Trace /lpf; Mucus,Urine Trace /lpf; Squamous Epithelial Cell,Urine Occasional #/hpf (0-5)
--- NOTE | 2017-10-20 13:25 | Pharmacy Consult Notes ---
[facility] Pharmacy VTE Monitoring - Patient Demographics Admission date: 10/20/17 Report Date: 10/20/17 Time: 13:25 Allergies/Adverse Reactions: Patient Allergies hydromorphone [From DILAUDID] Allergy (Unknown, Verified 09/27/17 19:33) Hallucinating Height: 1.4 m Weight: 55.934 kg Patient Problems: Current Active Problems Rib fractures (Acute) Hypokalemia (Acute) - VTE Risk Labs: VTE Related Lab Results Hgb 10.2 g/dL (12.2-16.2) L 10/20/17 09:45 Hct 31.6 % (37.0-47.0) L 10/20/17 09:45 Plt Count 124 K/mm3 (142-424) L 10/20/17 09:45 BUN 12 mg/dL (7-18) 10/20/17 09:45 Creatinine 0.72 mg/dL (0.55-1.02) 10/20/17 09:45 Estimated Creat Clear 41 mL/min (0-300) 10/20/17 09:45 Clinical Trial Participant: No - Prophylaxis VTE Prophylaxis Ordered?: Yes Types of VTE Prophylaxis: TEDS Knee High
--- NOTE | 2017-10-20 13:26 | Pharmacy Consult Notes ---
[facility] Pharmacy VTE Monitoring - Patient Demographics Admission date: 10/20/17 Report Date: 10/20/17 Time: 13:25 Allergies/Adverse Reactions: Patient Allergies hydromorphone [From DILAUDID] Allergy (Unknown, Verified 09/27/17 19:33) Hallucinating Height: 1.4 m Weight: 55.934 kg Patient Problems: Current Active Problems Rib fractures (Acute) Hypokalemia (Acute) - VTE Risk Labs: VTE Related Lab Results Hgb 10.2 g/dL (12.2-16.2) L 10/20/17 09:45 Hct 31.6 % (37.0-47.0) L 10/20/17 09:45 Plt Count 124 K/mm3 (142-424) L 10/20/17 09:45 BUN 12 mg/dL (7-18) 10/20/17 09:45 Creatinine 0.72 mg/dL (0.55-1.02) 10/20/17 09:45 Estimated Creat Clear 41 mL/min (0-300) 10/20/17 09:45 - Prophylaxis VTE Prophylaxis Ordered?: Yes Types of VTE Prophylaxis: IPCS Knee High Location of Applied Device: Bilateral Lower Extremeties
[2017-10-20 14:02] LABS: Anion Gap 5.7 mEq/L (5-15); Calcium 8.8 mg/dL (8.5-10.1)
[2017-10-20 14:04] LABS: Potassium 2.7 mmoL/L (3.5-5.1)
--- NOTE | 2017-10-20 17:53 | History & Physical Report ---
*Admission Date: 10/20/17 *Chief complaint: Fall with rib fractures/pain *History of present illness: 77-year-old white female with long history of narcotic dependence, currently with intrathecal pain pump, managed by [facility] pain clinic, who has had multiple problems with hypokalemia, postural instability and multiple falls , who was at home today and got off of the porch to walk a couple of dogs and fell down and could not get up. Eventually transferred to the emergency department by family, found to have old compression fractures but new rib fractures on the right side, also was found to be significantly hypokalemic. Interestingly had a normal potassium level at the last visit at our office. Admitted to hospital for potassium replacement and pain control evaluation. [facility] History I have reviewed the patient's past medical history: Yes Medical History: Reports:: Coronary Artery Disease, Hyperlipidemia, Hypertension Denies:: Cancer, Diabetes Mellitus Type 1, Diabetes Mellitus Type 2, Internal Pacemaker, MRSA, Seizures Other Medical History: Reports: Arthritis, Sinus Problems. Denies: Blood Transfusion Reaction Comment: Multiple compression fractures, chronic pain syndrome, indwelling pain pump Laterality Cases: Right: Arthroscopy Knee Other Surgeries: Yes: Cardiac Catheterization, Coronary Stent. No: Pacemaker Amputation: No Fractures: No - *Social History Smoking Status: Current every day smoker Tobacco Type: cigarettes # Packs/Day (cigarettes): 1 Alcohol Intake: never Occupational Status: unemployed, retired Housing: house Household Members: family - Psychiatric History Expresses thoughts of harming self/others: None Suicide Plan Description: No Plan *Family Hx:: No significant family history Review of Systems - Review of Systems Review of systems:: pertinent systems reviewed and negative unless documented below - Constitutional Denies anorexia, Denies body ache(s) - Eyes Denies blind spots, Denies blurry vision - ENT Denies abnormal hearing, Denies bleeding gums, Denies change in voice - *Cardiovascular Reports chest pain with activity, Denies chest pain, Denies chest pain at rest, Denies excessive sweating, Denies shortness of breath - *Respiratory Denies change in phlegm color, Denies chest congestion - *Gastrointestinal Denies abdominal pain, Denies belching Meds Home Medications Medication Instructions Recorded Confirmed Type Lisinopril [Lisinopril 20mg Tab] 20 mg PO DAILY 05/17/17 10/20/17 History Amlodipine Besylate [Norvasc 5mg 5 mg PO DAILY 09/27/17 10/20/17 History tablet] Calcium Carbonate/Vitamin D3 1 each PO DAILY 09/27/17 10/20/17 History [Caltrate 600 Plus D3 Tablet] Cholecalciferol (Vitamin D3) 1,000 unit PO DAILY 09/27/17 10/20/17 History [Vitamin D3] Duloxetine HCl 60 mg PO DAILY 09/27/17 10/20/17 History Folic Acid [Folic Acid 1mg tablet] 1 mg PO DAILY 09/27/17 10/20/17 History Multivit with Iron-Minerals 1 each PO DAILY 09/27/17 10/20/17 History [Complete Senior] Pravastatin Sodium [Pravachol 40mg 40 mg PO HS 09/27/17 10/20/17 History Tablet] Pregabalin [Lyrica 100mg Cap] 100 mg PO TID 09/27/17 10/20/17 History Sucralfate [Sucralfate 1gm 1 gm PO TID 09/27/17 10/20/17 History Tab] clonazePAM [Clonazepam] 1 mg PO HS 09/27/17 10/20/17 History Aspirin [Aspirin 81mg EC Tab] 81 mg PO DAILY 09/28/17 10/20/17 History Albuterol Sulfate [Albuterol 3 ml IH QIDP PRN 10/20/17 10/20/17 History 0.083% 2.5mg/3mL neb] Fentanyl Citrate/Pf [Fentanyl 1 dose IV DAILY 10/20/17 10/20/17 History 1,000 Mcg/20 ml Syrng] Nystatin [Nystatin Cr 100,000 1 applic TOPICAL TID 10/20/17 10/20/17 History Units/GM 30GM] Potassium Chloride [Klor-Con 10mEq 10 meq PO BID 10/20/17 10/20/17 History tab] hydroCHLOROthiazide [HCTZ 12.5mg 12.5 mg PO DAILY 10/20/17 10/20/17 History capsule] Allergies Allergy/AdvReac Type Severity Reaction Status Date / Time hydromorphone [From DILAUDID] Allergy Unknown Hallucinati Verified 09/27/17 19: 33 ng Exam Vital signs and Labs for Last 24 Hours: Temp Pulse Resp BP Pulse Ox 97.6 F 63 16 121/47 93 L 10/20/17 16:00 10/20/17 16:00 10/20/17 16:00 10/20/17 16:00 10/20/17 16:00 Laboratory Results - last 24 hr 10/20/17 09:30: Urine Color Yellow, Urine Appearance Clear, Urine pH 7.0, Ur Specific [place] 1.015, Urine Protein Negative, Urine Glucose (UA) Negative, Urine Ketones Negative, Urine Blood Negative, Urine Nitrate Negative, Urine Bilirubin Negative, Urine Urobilinogen 0.2, Ur Leukocyte Esterase Negative, Urine WBC 5-10, Ur Squamous Epith Cells Occasional, Urine Bacteria Trace, Urine Mucus Trace 10/20/17 09:45: WBC 4.7 L, RBC 3.28 L, Hgb 10.2 L, Hct 31.6 L, MCV 96.4, MCH 31.2, MCHC 32.4, RDW 14.5, Plt Count 124 L, MPV 8.0, Neut % (Auto) 67.6, Lymph % (Auto) 21.8, [place] % (Auto) 3.4, Eos % (Auto) 6.7, Baso % (Auto) 0.5, Neut # ( Auto) 3.2, Lymph # (Auto) 1.0, [place] # (Auto) 0.2, Eos # (Auto) 0.3, Baso # (Auto ) 0.0 10/20/17 09:45: Sodium 145, Potassium 2.5 L*, Chloride 105, Carbon Dioxide 36 H , Anion Gap 6.5, BUN 12, Creatinine 0.72, Estimated Creat Clear 41, Estimated GFR 78, Est GFR ( Amer) 95, Glucose 91, Calcium 9.0, Total Bilirubin 0.5 , AST 23, ALT 21, Alkaline Phosphatase 72, Troponin I < 0.02, Total Protein 6.9 , Albumin 3.0 L, Globulin 3.9 H, Albumin/Globulin Ratio 0.8 L 10/20/17 13:33: Troponin I < 0.02 10/20/17 13:33: Sodium 145, Potassium 2.7 L*, Chloride 107, Carbon Dioxide 35 H , Anion Gap 5.7, BUN 11, Creatinine 0.66, Estimated Creat Clear 40, Estimated GFR 86, Est GFR ( Amer) 105, Glucose 81, Calcium 8.8 I & O for Last 24 hours: Intake & Output 10/18/17 10/19/17 10/20/17 10/21/17 11:59 11:59 11:59 11:59 Intake Total 202.9 / 202.9 Balance 202.9 / 202.9 Weight 126 lb 123 lb 5 oz Narrative: Patient is alert, pleasant but very tearful about her pain level. Lungs are clear, heart rate regular. Abdomen soft, significant kyphosis as previously noted. Able to move all extremities well but complains bitterly of pain. H&P: Result - Labs Labs: Short CBC 10/20/17 Range/Units 09:45 WBC 4.7 L (4.8-10.8) K/mm3 Hgb 10.2 L (12.2-16.2) g/dL Hct 31.6 L (37.0-47.0) % Plt Count 124 L (142-424) K/mm3 BMP 10/20/17 10/20/17 09:45 13:33 Sodium 145 145 Potassium 2.5 L* 2.7 L* Chloride 105 107 Carbon Dioxide 36 H 35 H BUN 12 11 Creatinine 0.72 0.66 Glucose 91 81 Calcium 9.0 8.8 Cardiac Enzymes 10/20/17 10/20/17 Range/Units 09:45 13:33 Troponin I < 0.02 < 0.02 (0.00-0.06) ng/ml Liver Function 10/20/17 Range/Units 09:45 Total Bilirubin 0.5 (0.2-1.0) mg/dL AST 23 (15-37) U/L ALT 21 (12-78) U/L Alkaline Phosphatase 72 (46-116) U/L Albumin 3.0 L (3.4-5.0) gm/dL Urine 10/20/17 Range/Units 09:30 Urine Color Yellow (Yellow) Urine Appearance Clear (Clear) Urine pH 7.0 (5.0-8.5) Ur Specific [place] 1.015 (1.005-1.030) Urine Protein Negative (Negative) Urine Glucose (UA) Negative (Negative) Assessment and Plan (1) Hypokalemia Current visit: Yes Status: Acute Category: Medical Code(s): E87.6 - Hypokalemia Plan will be to admit, potassium replacement. Patient has been on hydrochlorothiazide. We will discontinue this when she is ready for discharge (2) Rib fractures Current visit: Yes Status: Acute Category: Medical Code(s): S22.39XA - Fracture of one rib, unspecified side, initial encounter for closed fracture Tylenol for pain, observation of respiratory status. No narcotics at this point given the presence of indwelling pain pump. I discussed this with her daughter who wishes to have absolutely no further narcotic therapy given her mother's history of narcotic dependence and overuse.
[2017-10-21 07:25] LABS: Basophils % 0.6 % (0.1-2.0); Eosinophils # 0.3 K/mm3 (0.0-0.4); Eosinophils % 7.8 % (0.1-12.0); Hematocrit 30.9 % (37.0-47.0); Hemoglobin 9.9 g/dL (12.2-16.2); Lymphocytes # 1.1 K/mm3 (0.7-4.5); Lymphocytes % 30.1 K/mm3 (10-50); Mean Corpuscular HGB Conc 31.9 g/dL (31.8-35.4); Mean Corpuscular Volume 97.2 fl (81-99); Mean Platelet Volume 7.7 fl (7.4-10.4); Monocytes # 0.2 K/mm3 (0.1-1.0); Monocytes % 4.3 % (1.7-9.3); Neutrophils # 2.1 K/mm3 (1.8-7.8); Neutrophils % 57.3 % (37.0-80.0); Platelet Count 112 K/mm3 (142-424); Red Blood Count 3.17 M/mm3 (4.20-5.40); Red Cell Distribution Width 14.5 % (11.5-17.5); White Blood Count 3.6 K/mm3 (4.8-10.8)
[2017-10-21 07:34] LABS: Anion Gap 5.7 mEq/L (5-15); Calcium 8.4 mg/dL (8.5-10.1)
[2017-10-21 07:37] LABS: Potassium 2.7 mmoL/L (3.5-5.1)
[2017-10-21 08:08] LABS: Thyroid Stimulating Hormone 0.62 uIU/ml (0.358-3.740)
--- NOTE | 2017-10-21 08:58 | Progress Note ---
Internal Medicine - PN: Subj *Date: 10/21/17 *Time: 07:45 Interval history: Patient continues to have left sided rib pain. No cough or shortness of breath. Alert and oriented x 3 with some confusion. Rate and rhythm regular. No LE edema. Lung sound clear and equal bilaterally. Left lateral rib tenderness, no crepitus. Abdomen soft and nontender. Exam Vital signs and Labs for Last 24 Hours: Temp Pulse Resp BP Pulse Ox 97.7 F 69 22 134/64 92 L 10/21/17 07:56 10/21/17 07:56 10/21/17 07:56 10/21/17 07:56 10/21/17 07:56 Laboratory Results - last 24 hr 10/20/17 09:30: Urine Color Yellow, Urine Appearance Clear, Urine pH 7.0, Ur Specific [place] 1.015, Urine Protein Negative, Urine Glucose (UA) Negative, Urine Ketones Negative, Urine Blood Negative, Urine Nitrate Negative, Urine Bilirubin Negative, Urine Urobilinogen 0.2, Ur Leukocyte Esterase Negative, Urine WBC 5-10, Ur Squamous Epith Cells Occasional, Urine Bacteria Trace, Urine Mucus Trace 10/20/17 09:45: WBC 4.7 L, RBC 3.28 L, Hgb 10.2 L, Hct 31.6 L, MCV 96.4, MCH 31.2, MCHC 32.4, RDW 14.5, Plt Count 124 L, MPV 8.0, Neut % (Auto) 67.6, Lymph % (Auto) 21.8, [place] % (Auto) 3.4, Eos % (Auto) 6.7, Baso % (Auto) 0.5, Neut # ( Auto) 3.2, Lymph # (Auto) 1.0, [place] # (Auto) 0.2, Eos # (Auto) 0.3, Baso # (Auto ) 0.0 10/20/17 09:45: Sodium 145, Potassium 2.5 L*, Chloride 105, Carbon Dioxide 36 H , Anion Gap 6.5, BUN 12, Creatinine 0.72, Estimated Creat Clear 41, Estimated GFR 78, Est GFR ( Amer) 95, Glucose 91, Calcium 9.0, Total Bilirubin 0.5 , AST 23, ALT 21, Alkaline Phosphatase 72, Troponin I < 0.02, Total Protein 6.9 , Albumin 3.0 L, Globulin 3.9 H, Albumin/Globulin Ratio 0.8 L 10/20/17 13:33: Troponin I < 0.02 10/20/17 13:33: Sodium 145, Potassium 2.7 L*, Chloride 107, Carbon Dioxide 35 H , Anion Gap 5.7, BUN 11, Creatinine 0.66, Estimated Creat Clear 40, Estimated GFR 86, Est GFR ( Amer) 105, Glucose 81, Calcium 8.8 10/20/17 18:30: Troponin I < 0.02 10/21/17 00:40: Troponin I < 0.02 10/21/17 07:12: WBC 3.6 L, RBC 3.17 L, Hgb 9.9 L, Hct 30.9 L, MCV 97.2, MCH 31.0 , MCHC 31.9, RDW 14.5, Plt Count 112 L, MPV 7.7, Neut % (Auto) 57.3, Lymph % ( Auto) 30.1, [place] % (Auto) 4.3, Eos % (Auto) 7.8, Baso % (Auto) 0.6, Neut # (Auto ) 2.1, Lymph # (Auto) 1.1, [place] # (Auto) 0.2, Eos # (Auto) 0.3, Baso # (Auto) 0.0 10/21/17 07:12: Sodium 143, Potassium 2.7 L*, Chloride 107, Carbon Dioxide 33 H , Anion Gap 5.7, BUN 12, Creatinine 0.57, Estimated Creat Clear 42, Estimated GFR 102, Est GFR ( Amer) 124, Glucose 98 D, Calcium 8.4 L 10/21/17 07:12: Magnesium 1.1 L, TSH 0.62 I & O for Last 24 hours: Intake & Output 10/18/17 10/19/17 10/20/17 10/21/17 11:59 11:59 11:59 11:59 Intake Total 442.9 / 442.9 Balance 442.9 / 442.9 Weight 126 lb 127 lb 9 oz Assessment and Plan (1) Hypokalemia Current visit: Yes Status: Acute Category: Medical Code(s): E87.6 - Hypokalemia (2) Rib fractures Current visit: Yes Status: Acute Category: Medical Code(s): S22.39XA - Fracture of one rib, unspecified side, initial encounter for closed fracture (3) Hypomagnesemia Current visit: Yes Status: Acute Category: Medical Code(s): E83.42 - Hypomagnesemia - Assessment and plan all Dx Assessment and Plan for all problems:: Patient has not been on HCTZ since prior hospitalization. Magnesium level noted at 1.1 which could be contributing to her hypokalemia. D/C lisinopril as it could be the cause, as well. Norvasc increased to 10 mg po daily. Recheck BMP in the am. Will have PT evaluate today. Continue tylenol for pain, no narcotics.
[2017-10-22 09:02] LABS: Calcium 9.2 mg/dL (8.5-10.1)
--- NOTE | 2017-10-22 12:06 | Discharge Summary ---
General - General Admission date:: 10/20/17 Discharge date: 10/22/17 HPI HPI: 77-year-old white female with long history of narcotic dependence, currently with intrathecal pain pump, managed by [facility], who has had multiple problems with hypokalemia, postural instability and multiple falls , who was at home today and got off of the porch to walk a couple of dogs and fell down and could not get up. Eventually transferred to the emergency department by family, found to have old compression fractures but new rib fractures on the right side, also was found to be significantly hypokalemic. Interestingly had a normal potassium level at the last visit at our office. Admitted to hospital for potassium replacement and pain control evaluation. Hospital Course Hospital Course: Ms. Redd was admitted to medicine service for repletion of potassium, pain control of acute rib fractures, and adjustments of medications to assist with normalization of electrolytes. Electrolytes were replaced both orally and IV. She was assessed by physical therapy and found to have good rehab potential. Their recommendations were home with assist and rolling walker. No further falls. Pain was controlled while inpatient. Discontinuing lisinopril aided in normalization of electrolytes. Remained hemodynamically stable with normal blood pressures and electrolytes within normal limits on day of discharge. Discharged home with family in stable condition. Objective Vital signs: Temp Pulse Resp BP Pulse Ox 97.5 F L 80 20 125/68 93 L 10/22/17 08:00 10/22/17 08:00 10/22/17 08:00 10/22/17 08:00 10/22/17 08:00 no acute distress - *Routine HEENT Exam Head: Present: normocephalic, atraumatic Eye: Present: EOMI ENT: Present: mucous membranes moist Comments: Absent dentition - *Routine Neck Exam Present: supple. Absent: lymphadenopathy - Routine Chest/Breast/Axilla Exam Chest wall: Present: tenderness (Over left lower 3 ribs at mid axillary line) - *Routine Respiratory Exam Present: CTA bilaterally. Absent: prolonged expiratory phase, rales, wheezes - *Routine Cardiovascular Exam Present: RRR, Normal S1, Normal S2. Absent: murmur, bradycardia - *Routine Abdominal Exam Present: soft, normoactive bowel sounds. Absent: tenderness - *Routine Rectal Exam Patient deferred: visual exam - *Routine Exam Patient deferred: external exam - *Routine Extremities Exam Absent: cyanosis, clubbing, edema - *Routine Skin Exam Present: intact. Absent: cyanosis, erythema - *Routine Neurological Exam Present: alert, oriented X3, CN II-XII intact Unstable gait, using a walker, rolling steps - Routine Psychiatric Exam Present: normal affect, normal thought process Results Labs on day of discharge: Labs from last 24 hours 10/22/17 08:10 Sodium 144 Potassium 3.0 L Chloride 105 Carbon Dioxide 37 H Anion Gap 5.0 BUN 8 D Creatinine 0.67 Estimated Creat Clear 40 Estimated GFR 85 Est GFR ( Amer) 103 Glucose 144 H Calcium 9.2 DS: Diagnosis - Discharge Diagnosis (1) Hypokalemia Status: Acute (2) Rib fractures Status: Acute (3) Hypomagnesemia Status: Acute Discharge Plan - Patient Discharge Instructions Additional Instructions: Follow-up with physical therapy at [facility] per PT recommendations. Patient Instructions: DI for Hypokalemia - Follow up Plan Follow up with: Josep Up MD [Primary Care Provider] - 1 week Disposition: Home, Self-Nursing Home Medications: Home Medications Medication Instructions Recorded Confirmed Type Calcium Carbonate/Vitamin D3 1 each PO DAILY 09/27/17 10/20/17 History [Caltrate 600 Plus D3 Tablet] Cholecalciferol (Vitamin D3) 1,000 unit PO DAILY 09/27/17 10/20/17 History [Vitamin D3] Duloxetine HCl 60 mg PO DAILY 09/27/17 10/20/17 History Multivit with Iron-Minerals 1 each PO DAILY 09/27/17 10/20/17 History [Complete Senior] Pravastatin Sodium [Pravachol 40mg 40 mg PO HS 09/27/17 10/20/17 History Tablet] Pregabalin [Lyrica 100mg Cap] 100 mg PO TID 09/27/17 10/20/17 History Aspirin [Aspirin 81mg EC Tab] 81 mg PO DAILY 09/28/17 10/20/17 History Albuterol Sulfate [Albuterol 3 ml IH QIDP PRN 10/20/17 10/20/17 History 0.083% 2.5mg/3mL neb] Potassium Chloride [Klor-Con 10mEq 10 meq PO BID 10/20/17 10/20/17 History tab] Folic Acid 0.8 mg PO DAILY 10/21/17 10/21/17 History Prescriptions/Medication Reconciliation: New Acetaminophen [Acetaminophen 325mg tab] 650 mg PO Q4HP PRN tablet PRN Reason: As Needed For Fever Or Pain Amlodipine Besylate [Norvasc 10mg tablet] 10 mg PO DAILY tablet clonazePAM [Klonopin 1mg tablet] 1 mg PO HS tablet Continue Pregabalin [Lyrica 100mg Cap] 100 mg PO TID Pravastatin Sodium [Pravachol 40mg Tablet] 40 mg PO HS Multivit with Iron-Minerals [Complete Senior] 1 each PO DAILY Cholecalciferol (Vitamin D3) [Vitamin D3] 1,000 unit PO DAILY Calcium Carbonate/Vitamin D3 [Caltrate 600 Plus D3 Tablet] 1 each PO DAILY Aspirin [Aspirin 81mg EC Tab] 81 mg PO DAILY Potassium Chloride [Klor-Con 10mEq tab] 10 meq PO BID Duloxetine HCl 60 mg PO DAILY Albuterol Sulfate [Albuterol 0.083% 2.5mg/3mL neb] 3 ml IH QIDP PRN PRN Reason: BREATHING PROBLEMS Folic Acid 0.8 mg PO DAILY Discontinued Sucralfate [Sucralfate 1gm Tab] 1 gm PO TID clonazePAM [Clonazepam] 1 mg PO HS Amlodipine Besylate [Norvasc 5mg tablet] 5 mg PO DAILY Fentanyl Citrate/Pf [Fentanyl 1,000 Mcg/20 ml Syrng] 1 dose IV DAILY Nystatin [Nystatin Cr 100,000 Units/GM 30GM] 1 applic TOPICAL TID Lisinopril [Lisinopril 20mg Tab] 20 mg PO DAILY
== END 2017-10-22 13:20 | disposition home or self-care (01) ==
LOC: ER 08:16 → 2ND 08:16
PROVIDERS: ADMIT Internal Medicine Adolescent Medicine; ATTEND Internal Medicine Adolescent Medicine

== ENCOUNTER 2017-10-22 13:00 | Outpatient (RCR) | payer MEDICARE, BC, SELFPAY | END 2017-10-22 13:01 | disposition home or self-care (01) | LOC: PT 13:00 | PROVIDERS: Family Provider Family Medicine; PCP Internal Medicine Adolescent Medicine; Visit Provider Internal Medicine Adolescent Medicine | DX: R26.89 Other abnormalities of gait and mobility (principal) | CPT/HCPCS: 97163 ==

== ENCOUNTER → 2018-01-19 08:48 | Outpatient (CLI) | payer MEDICARE, BC, SELFPAY ==
--- NOTE | 2018-01-19 08:51 | XR_ITS ---
XR shoulder RT min 2V HISTORY: ITS.REASON: proximal humerus fracture follow up. ORDERING PHYSICIAN: Livan Mark MD PATIENT AGE: 77 years Comparison: 12/26/2015 FINDINGS: There is a healing comminuted fracture involving the humerus head and neck. The fracture fragment at the greater tuberosity is displaced laterally x 16 mm. There is inferior dislocation of the humeral head. IMPRESSION: 1. Infraglenoid dislocation of the humeral head 2. Healing comminuted fracture of the humeral head and neck
== END ==
PROVIDERS: PCP Internal Medicine Adolescent Medicine; Visit Provider Orthopaedic Surgery
DX: S42.201A Unspecified fracture of upper end of right humerus, initial encounter for closed fracture (principal)
CPT/HCPCS: 73030

== ENCOUNTER → 2018-02-08 14:04 | Outpatient (CLI) | payer MEDICARE, BC, SELFPAY ==
--- NOTE | 2018-02-08 14:08 | XR_ITS ---
XR shoulder RT min 2V HISTORY: Pain following injury, fracture follow-up ITS.REASON: internal, external and y views ORDERING PHYSICIAN: Livan Mark MD PATIENT AGE: 77 years Comparison: 01/19/2018 FINDINGS: Positioning is very limited. A comminuted fracture involves the humeral neck and head. There is 14 mm medial displacement of the distal fracture fragment.. Fracture fragments are not well evaluated due to the technique. Consider CT for better visualization of the fracture. There is inferior subluxation/dislocation of the humeral head. IMPRESSION: Very limited exam with displaced comminuted humeral head and neck fracture and inferior dislocation of the humeral head is overall not significantly changed.
== END ==
PROVIDERS: PCP Internal Medicine Adolescent Medicine; Visit Provider Orthopaedic Surgery
DX: S42.209A Unspecified fracture of upper end of unspecified humerus, initial encounter for closed fracture (principal)
CPT/HCPCS: 73030

== ENCOUNTER → 2018-03-30 09:40 | Outpatient (CLI) | payer MEDICARE, BC, SELFPAY ==
--- NOTE | 2018-03-30 09:46 | XR_ITS ---
XR shoulder RT min 2V HISTORY: Follow-up fracture ITS.REASON: right proximal humerus fracture ORDERING PHYSICIAN: Livan Mark MD PATIENT AGE: 77 years Comparison: 02/08/2018 FINDINGS: Comminuted impacted fracture once again noted involving the neck of the humerus. This does not appear significantly displaced. Callus formation is noted at fracture site. Study is somewhat limited technically due to difficulty in patient positioning. IMPRESSION: Healing comminuted impacted fracture of the right proximal humerus
--- NOTE | 2018-03-30 10:57 | XR_ITS ---
XR elbow LT min 3V HISTORY: Pain following injury ITS.REASON: evaluate for left elbow fracture ORDERING PHYSICIAN: Livan Mark MD PATIENT AGE: 77 years COMPARISON: 03/02/2018 FINDINGS: No fracture or dislocation. There are mild degenerative changes with mild hypertrophy of the coronoid process. No displaced fat pad. IMPRESSION: No change with no acute finding
--- NOTE | 2018-03-30 10:57 | XR_ITS ---
XR wrist LT min 3V HISTORY pain following injury ITS.REASON: evaluate left wrist fracture ORDERING PHYSICIAN: Livan Mark MD PATIENT AGE: 77 years Comparison: 03/02/2018 FINDINGS: No acute fracture or dislocation is evident. There is widening of the space between the scaphoid and lunate suggesting scapholunate ligament injury. Hypertrophic changes are present at the radial styloid process and at the ulna at the radial ulnar joint. IMPRESSION: 1. No acute fracture. 2. Widening of the scapholunate space suggesting scapholunate ligament injury
== END ==
PROVIDERS: PCP Internal Medicine Adolescent Medicine; Visit Provider Orthopaedic Surgery
DX: S42.209A Unspecified fracture of upper end of unspecified humerus, initial encounter for closed fracture (principal); M25.532 Pain in left wrist; M25.522 Pain in left elbow
CPT/HCPCS: 73030; 73080; 73110

== ENCOUNTER 2018-03-30 11:37 | Outpatient (RCR) | payer MEDICARE, BC, SELFPAY | END 2018-04-13 16:14 | disposition home or self-care (01) | LOC: OT 11:37 | PROVIDERS: Visit Provider Orthopaedic Surgery | DX: G56.02 Carpal tunnel syndrome, left upper limb (principal) | CPT/HCPCS: 97763 ==

== ENCOUNTER → 2018-04-26 09:49 | Outpatient (POV) | payer MEDICARE, BC, SELFPAY ==
[2018-04-26 10:22] VITALS: BP 104/78; PULSE 77; RESP 18; O2SAT 99; BMI 27.6
--- NOTE | 2018-04-26 10:36 | [facility].PAINSOAP ---
[facility] Pain Management SOAP Note Subjective:: Patient is a pleasant 77-year-old white female who presents today for follow-up. Patient currently has an intrathecal pain pump going at 37.5 mcg every 2 hours. Patient is doing well on that dose she denies side effects. She rates her pain a 7 out of 10. Patient is having some pain with her arm however she is under the care of Dr. Mark for this. ROS General: no recent weight change, no fever, no sleep disturbances Respiratory: no cough, no shortness of air, no recurring pulmonary infections Cardiovascular/Peripheral Vascular: No chest pain, No palpitations, no edema, no shortness of breath. Gastrointestinal: no incontinence, normal bowel movements reported Genitourinary: no incontinence Musculoskeletal: Back pain, left arm pain Psychiatric: normal mood/ affect Neurological: [denies weakness in extremities], [denies balance issues] Objective:: Physical Exam General: Alert and oriented x3, no acute distress, pleasant and cooperative, [on room air] Lungs: Resps E/U, Symmetrical chest expansion, Eyes: PERRL Musculoskeletal: Flexion and extension of lumbar spine somewhat guarded secondary to pain, deep tendon reflexes normal, strength in upper and lower extremities [5/5], [abnormal gait noted] Neurological: speech clear, cooker helper equal, no gross sensory deficits Assessment:: 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 Patient's been instructed to call the office if she has any issues prior to this. Patient is going to continue with home refill. Dr. Collins has reviewed this note and agrees with this plan of care. This note was dictated using voice recognition software and may contain errors or omissions
--- NOTE | 2018-04-26 10:39 | P.CONS_ITS ---
[facility] Pain Management SOAP Note Subjective:: Patient is a pleasant 77-year-old white female who presents today for follow-up. Patient currently has an intrathecal pain pump going at 37.5 mcg every 2 hours. Patient is doing well on that dose she denies side effects. She rates her pain a 7 out of 10. Patient is having some pain with her arm however she is under the care of Dr. Mark for this. ROS General: no recent weight change, no fever, no sleep disturbances Respiratory: no cough, no shortness of air, no recurring pulmonary infections Cardiovascular/Peripheral Vascular: No chest pain, No palpitations, no edema, no shortness of breath. Gastrointestinal: no incontinence, normal bowel movements reported Genitourinary: no incontinence Musculoskeletal: Back pain, left arm pain Psychiatric: normal mood/ affect Neurological: [denies weakness in extremities], [denies balance issues] Objective:: Physical Exam General: Alert and oriented x3, no acute distress, pleasant and cooperative, [on room air] Lungs: Resps E/U, Symmetrical chest expansion, Eyes: PERRL Musculoskeletal: Flexion and extension of lumbar spine somewhat guarded secondary to pain, deep tendon reflexes normal, strength in upper and lower extremities [5/5], [abnormal gait noted] Neurological: speech clear, centrifugal station operator equal, no gross sensory deficits Assessment:: 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 Patient's been instructed to call the office if she has any issues prior to this. Patient is going to continue with home refill. Dr. Collins has reviewed this note and agrees with this plan of care. This note was dictated using voice recognition software and may contain errors or omissions
== END ==
PROVIDERS: PCP Internal Medicine Adolescent Medicine; Visit Provider Clinical Nurse Specialist Family Health
DX: M51.16 Intervertebral disc disorders with radiculopathy, lumbar region (principal); M96.1 Postlaminectomy syndrome, not elsewhere classified
CPT/HCPCS: 99213

== ENCOUNTER 2018-10-20 17:45 | Inpatient (IN) ==
[2018-10-20 18:38] LABS: Basophils # 0.1 K/mm3 (0-0.2); Basophils % 0.4 % (0.1-2.0); Eosinophils # 0.2 K/mm3 (0.0-0.4); Eosinophils % 0.7 % (0.1-12.0); Lymphocytes # 2.6 K/mm3 (0.7-4.5); Lymphocytes % 11.6 % (10-50); Mean Corpuscular HGB Conc 27.4 g/dL (31.8-35.4); Mean Corpuscular Volume 104.4 fl (81-99); Mean Platelet Volume 7.9 fl (7.4-10.4); Monocytes # 0.7 K/mm3 (0.1-1.0); Monocytes % 2.9 % (1.7-9.3); Neutrophils # 19.2 K/mm3 (1.8-7.8); Neutrophils % 84.5 % (37.0-80.0); Platelet Count 521 K/mm3 (142-424); Red Blood Count 1.48 M/mm3 (4.20-5.40); Red Cell Distribution Width 20.2 % (11.5-17.5); White Blood Count 22.7 K/mm3 (4.8-10.8)
[2018-10-20 18:44] LABS: Albumin Level 2.1 gm/dL (3.4-5.0); Albumin/Globulin Ratio 0.5 (1.1-1.8); Anion Gap 17.4 mEq/L (5-15); Bilirubin,Total 0.2 mg/dL (0.2-1.0); Calcium 8.7 mg/dL (8.5-10.1); Globulin 3.9 gm/dl (1.3-3.2)
[2018-10-20 18:45] LABS: INR 1.08 (0.9-1.1); Prothrombin Time 11.2 seconds (9.4-11.8)
[2018-10-20 18:48] LABS: Hematocrit 15.5 % (37.0-47.0)
[2018-10-20 18:49] LABS: Hemoglobin 4.2 g/dL (12.2-16.2)
[2018-10-20 19:38] LABS: Lymphocytes % 9 % (10-50); Monocytes % 4 % (2-9); Neutrophils % 87 % (42-76); Total Cells Counted 100
[2018-10-20 19:40] LABS: Hypochromasia 2+; Macrocytosis 1+
--- NOTE | 2018-10-20 20:38 | Emergency Department Note ---
ED Disposition Clinical Impression: Upper GI bleed Disposition: Admitted As Inpatient Condition on Discharge: Serious Instructions: DI for Acute Abdomen Referrals: Josep Up MD [Primary Care Provider] - Time of Disposition: 20:41 - Critical Care Critical Care Time: No Attestation: On 10/20/18, the high probability of a clinically significant, sudden or life threatening deterioration of the following system(s) required my full and direct attention, intervention and personal management. The time I documented below is in addition to time spent performing reported procedures but includes the following listed in this critical care notation. Medical Decision Making - Medical Records Medical records reviewed: Yes: I reviewed the patient's medical records. - Kennedy Inquiry Pt receiving controlled substance: No Kennedy was queried for this patient: No Vital Signs: 10/20/18 18:06 10/20/18 18:32 10/20/18 18:52 Temperature 98.6 F Temperature Source Oral Pulse Rate [Left Radial] 109 H 89 89 Respiratory Rate 18 22 Blood Pressure [Right Arm] 109/58 L 120/53 L 128/53 L Blood Pressure Mean [Right Arm] 75 75 78 Blood Pressure Source [Right Arm] Automatic Cuff Automatic Cuff Blood Pressure Position [Right Arm] Sitting Sitting Supine 02 Sat by Pulse Oximetry 94 L 91 L Oxygen Delivery Method Room Air Room Air - Lab Data Lab results reviewed: Yes: I reviewed the patient's lab results. Lab Results 10/20/18 18:05: Sodium 144, Potassium 3.4 L, Chloride 106, Carbon Dioxide 24, Anion Gap 17.4 H, BUN 36 H, Creatinine 1.05 H, Estimated Creat Clear 37, Estimated GFR 50 L, Est GFR ( Amer) 61, Glucose 162 H, Calcium 8.7, Total Bilirubin 0.2, AST 39 H, ALT 22, Alkaline Phosphatase 77, Troponin I 0.04, Total Protein 6.0 L, Albumin 2.1 L, Globulin 3.9 H, Albumin/Globulin Ratio 0.5 L 10/20/18 18:05: PT 11.2, INR 1.08 10/20/18 18:26: WBC 22.7 H*, RBC 1.48 L*, Hgb 4.2 L*, Hct 15.5 L*, MCV 104.4 H, MCH 28.6, MCHC 27.4 L, RDW 20.2 H, Plt Count 521 H, MPV 7.9, Neut % (Auto) 84.5 H, Lymph % (Auto) 11.6, [place] % (Auto) 2.9, Eos % (Auto) 0.7, Baso % (Auto) 0.4, Neut # (Auto) 19.2 H, Lymph # (Auto) 2.6, [place] # (Auto) 0.7, Eos # (Auto) 0.2, Baso # (Auto) 0.1, Total Counted 100, Neutrophils % (Manual) 87 H, Lymphocytes % (Manual) 9 L, Monocytes % (Manual) 4, Platelet Estimate Moderate increase, RBC Morphology Not Reportable, Hypochromasia 2+, Macrocytosis 1+ 10/20/18 19:00: Blood Type O Positive 10/20/18 19:00: Lactate 3.6 H Result diagrams: 10/20/18 18:26 10/20/18 18:05 Orders (Tests/Meds): ED MEDICATIONS Generic Name Dose Route Start Last Admin Trade Name Freq PRN Reason Stop Dose Admin Sodium Chloride 1,000 mls @ 999 mls/hr 10/20/18 18:30 10/20/18 18:33 Sod Chlor 0.9% 1000ml Bag IV 10/20/18 19:30 999 mls/hr .Q1H1M MARY Administration Pantoprazole Sodium 80 mg/ 100 mls @ 10 mls/hr 10/20/18 18:45 10/20/18 18:50 Sodium Chloride IV 10/23/18 18:44 10 mls/hr .Q10H MARY Administration Sodium Chloride 650 mls @ 999 mls/hr 10/20/18 19:15 10/20/18 19:21 Sod Chlor 0.9% 1000ml Bag IV 10/20/18 19:54 999 mls/hr .Q40M MARY Administration Sodium Chloride 10 ml 10/20/18 18:32 10/20/18 18:35 Saline Flush 10ml Syringe IV 11/19/18 18:31 10 ml NEEDED PRN Administration Maintain IV Site Discontinued Medications Generic Name Dose Route Start Last Admin Trade Name Freq PRN Reason Stop Dose Admin Pantoprazole Sodium 80 mg/ 100 mls @ 100 mls/hr 10/20/18 18:17 10/20/18 18:35 Sodium Chloride IV 08/01/19 19:16 Not Given ONCE ONE Pantoprazole Sodium 80 mg/ 100 mls @ 10 mls/hr 10/20/18 19:17 Sodium Chloride IV 10/23/18 19:16 .Q10H MARY Ioversol 75 ml 10/20/18 19:20 10/20/18 19:25 Rad-Optiray 350 100ml Vial IV 10/20/18 19:21 75 ml ONCE ONE Administration Protocol Ondansetron HCl 4 mg 10/20/18 18:21 10/20/18 18:34 Zofran 4mg/2ml Vial IV 10/20/18 18:22 4 mg ONCE ONE Administration Pantoprazole Sodium 40 mg 10/20/18 18:32 10/20/18 18:35 Protonix 40mg Vial IV 10/20/18 18:33 40 mg ONCE ONE Administration Sodium Chloride 8 ml 10/20/18 18:32 10/20/18 18:36 Saline Flush 10ml Syringe IV 10/20/18 18:33 8 ml ONCE ONE Administration Sodium Chloride 10 ml 10/20/18 19:20 10/20/18 19:25 Rad-Saline Flush 10ml Syringe IV 10/20/18 19:21 10 ml ONCE ONE Administration ORDERS Category Date Time Status Type and Screen Stat BBK 10/20/18 19:[address] abdomen pelvis w con Stat Cat Scan 10/20/18 18:51 Taken Blood Culture Stat Micro 10/20/18 19:00 Received Abdominal Pain HPI - General Chief Complaint: Abdominal Pain Stated Complaint: weakness, vomiting, diarrhea Time Seen by Provider: 10/20/18 20:35 Mode of Arrival: Ambulatory Source of Information: Patient, Relative Limitations: No Limitations Description of Symptoms (Recalled from ER Triage Doc. by RN): to ed per pvt car with c/o generalized weakness, vomiting "black" emesis and diarrhea "black" stool. x 2 days. pt c/o abd cramping, nausea. - History of Present Illness HPI narrative: Upper GI bleed evidence x week or more. dyspepsia. now melena x trwo days, weaikness - Related Data Home Medications Medication Instructions Recorded Confirmed Calcium Carbonate/Vitamin D3 1 each PO DAILY 09/27/17 10/20/18 [Caltrate 600 Plus D3 Tablet] Cholecalciferol (Vitamin D3) 1,000 unit PO DAILY 09/27/17 10/20/18 [Vitamin D3] Duloxetine HCl 60 mg PO DAILY 09/27/17 10/20/18 Multivit with Iron-Minerals 1 each PO DAILY 09/27/17 10/20/18 [Complete Senior] Pravastatin Sodium [Pravachol 40mg 40 mg PO HS 09/27/17 10/20/18 Tablet] Pregabalin [Lyrica 100mg Cap] 100 mg PO TID 09/27/17 10/20/18 Aspirin [Aspirin 81mg EC Tab] 81 mg PO DAILY 09/28/17 10/20/18 Albuterol Sulfate [Albuterol 3 ml IH QIDP PRN 10/20/17 10/20/18 0.083% 2.5mg/3mL neb] Potassium Chloride [Klor-Con 10mEq 10 meq PO BID 10/20/17 10/20/18 tab] Folic Acid 0.8 mg PO DAILY 10/21/17 10/20/18 clonazePAM [Klonopin 1mg tablet] 1 mg PO HS 03/02/18 10/20/18 Amlodipine Besylate [Norvasc 5mg 5 mg PO DAILY 10/20/18 10/20/18 tablet] Previous Rx's Medication Instructions Recorded Acetaminophen [Acetaminophen 325mg 650 mg PO Q4HP PRN tab 10/22/17 tab] Ibuprofen [Ibuprofen 400mg 400 mg PO Q6HP PRN #20 tab 12/25/17 Tablet] Allergies Allergy/AdvReac Type Severity Reaction Status Date / Time hydromorphone [From DILAUDID] Allergy Unknown Hallucinati Verified 03/30/18 10:46 ng [facility] History - Hepatitis A Screen Drug use history?: No High risk sexual behaviors?: No History of sexually transmitted infection?: No Currently employed?: No Childcare worker?: No Do you have indoor plumbing?: Yes Do you have electricity?: Yes Attestation statement:: This patient has been screened for Hepatitis A risk factors. I have reviewed the patient's past medical history: Yes Medical History: Reports:: Coronary Artery Disease, Hyperlipidemia, Hypertension Denies:: Cancer, Diabetes Mellitus Type 1, Diabetes Mellitus Type 2, Internal Pacemaker, MRSA, Seizures Other Medical History: Reports: Arthritis, Sinus Problems. Denies: Blood Transfusion Reaction Comment: Multiple compression fractures, chronic pain syndrome, indwelling pain pump Laterality Cases: Right: Arthroscopy Knee Other Surgeries: Yes: Cardiac Catheterization, Colonoscopy, Coronary Stent, Other. No: Pacemaker Amputation: No Fractures: No - Social History Smoking Status: Current every day smoker Tobacco Type: cigarettes # Packs/Day (cigarettes): 1 Alcohol Intake: never Occupational Status: unemployed, retired Housing: house Household Members: family Family Hx:: No significant family history ROS Obtained: Yes All systems reviewed & no additional complaints - Constitutional Constitutional: Reports chills, Denies fever(s), Reports weakness - Gastrointestinal Gastrointestingal: Reports: black, tarry stools, nausea. Denies: bright red blood in stools - Musculoskeletal Musculoskeletal: Reports muscle weakness - Integumentary/Breasts Skin/Breast: Denies rash, Denies skin pain - Neurologic Neurologic: Denies focal weakness - Hematologic/Lymphatic Henatologic/Lymphatic: Denies easy bleeding Physical Exam - General General appearance: alert, in distress, other (appears concerned) - Eye Eye exam: Present: normal appearance, PERRL, EOMI - ENT ENT exam: Present: normal exam - Neck Neck exam: Present: normal inspection, full ROM, trachea midline. Absent: meningismus, lymphadenopathy - Respiratory Respiratory exam: Present: normal lung sounds bilaterally. Absent: respiratory distress - Cardiovascular Cardiovascular exam: Present: regular rate, normal rhythm. Absent: JVD - Abdominal Exam Abdominal exam: Present: soft, tenderness. Absent: distention Abdominal tenderness: Present: RLQ - Extremities Exam Extremities exam: Present: normal inspection, full ROM, normal capillary refill. Absent: joint swelling - Back Exam Back exam: Present: normal inspection - Neurological Exam Neurological exam: Present: alert, oriented X3, CN II-XII intact - Psychiatric Psychiatric exam: Present: normal affect - Skin Skin exam: Absent: warm, dry
[2018-10-21 07:00] LABS: Basophils # 0.1 K/mm3 (0-0.2); Basophils % 0.5 % (0.1-2.0); Eosinophils # 0.3 K/mm3 (0.0-0.4); Eosinophils % 2.2 % (0.1-12.0); Hematocrit 34.4 % (37.0-47.0); Lymphocytes # 1.6 K/mm3 (0.7-4.5); Lymphocytes % 11.4 % (10-50); Mean Corpuscular HGB Conc 31.6 g/dL (31.8-35.4); Mean Corpuscular Volume 92.7 fl (81-99); Mean Platelet Volume 7.5 fl (7.4-10.4); Monocytes # 0.5 K/mm3 (0.1-1.0); Monocytes % 3.9 % (1.7-9.3); Neutrophils # 11.5 K/mm3 (1.8-7.8); Platelet Count 200 K/mm3 (142-424); Red Blood Count 3.72 M/mm3 (4.20-5.40); Red Cell Distribution Width 16.6 % (11.5-17.5)
--- NOTE | 2018-10-21 08:53 | History & Physical Report ---
*Admission Date: 10/20/18 *Chief complaint: Melenic stools and coffee-ground emesis *History of present illness: Ms. Redd is an 78-year-old female with history of osteoarthritis and degenerative disc disease who presents with 3 days of coffee-ground emesis and melenic stools per her report. She states for the past several weeks she has been taking ibuprofen, 3 tablets, about every 4 hours for her right leg and back pain. She states she noted having emesis with not kary blood but flexed that looked like coffee grounds. Also has had black tarry stools over the past several days. Reports she is felt more weak and fatigued. She presented to the ER where she was noted to have an elevated BUN suggestive of GI bleed, and a hemoglobin in the 4 range. Patient was admitted to medicine for further management. Status post 4 units of blood transfused overnight. Initiated on PPI drip. Consult placed for GI to scope her today. Patient is remained hemodynamically stable overnight. Denies any nausea or vomiting today. Denies chest pain or shortness of breath. States she feels a little bit better but does have complaint about her right lower extremity pain and discomfort. Remains afebrile. Is n.p.o. since admission. Of note overnight had slight bump in her troponin, suspect due to type II NSTEMI due to severe anemia and impaired oxygen supply to myocardium. No significant signs of ischemia at this time. [facility] History I have reviewed the patient's past medical history: Yes Medical History: Reports:: Coronary Artery Disease, Hyperlipidemia, Hypertension Denies:: Cancer, Diabetes Mellitus Type 1, Diabetes Mellitus Type 2, Internal Pacemaker, MRSA, Seizures *Have you ever received a pneumonia vaccine?: Yes *Have you received a flu vaccine this season?: Yes Other Medical History: Reports: Arthritis, Sinus Problems. Denies: Blood Transfusion Reaction Laterality Cases: Right: Arthroscopy Knee Other Surgeries: Yes: Cardiac Catheterization, Colonoscopy, Coronary Stent, Other (BACK SX). No: Pacemaker Amputation: No Fractures: Yes - *Social History Educational Level: Completed High School Smoking Status: Current every day smoker Tobacco Type: cigarettes # Packs/Day (cigarettes): 1 Alcohol Intake: never *Occupational Status:: retired Housing: house Household Members: family *Travel in the last 8 weeks: None - Psychiatric History Expresses thoughts of harming self/others: None Suicide Plan Description: No Plan Family Hx:: Cancer, Heart Attack, Hypertension Review of Systems - Review of Systems Review of systems:: pertinent systems reviewed and negative unless documented below - *Neurologic Reports weakness, Denies localized weakness Meds Home Medications Medication Instructions Recorded Confirmed Type Calcium Carbonate/Vitamin D3 1 each PO DAILY 09/27/17 10/20/18 History [Caltrate 600 Plus D3 Tablet] Cholecalciferol (Vitamin D3) 1,000 unit PO DAILY 09/27/17 10/20/18 History [Vitamin D3] Duloxetine HCl 60 mg PO DAILY 09/27/17 10/20/18 History Multivit with Iron-Minerals 1 each PO DAILY 09/27/17 10/20/18 History [Complete Senior] Pravastatin Sodium [Pravachol 40mg 40 mg PO HS 09/27/17 10/20/18 History Tablet] Pregabalin [Lyrica 100mg Cap] 100 mg PO TID 09/27/17 10/20/18 History Aspirin [Aspirin 81mg EC Tab] 81 mg PO DAILY 09/28/17 10/20/18 History Albuterol Sulfate [Albuterol 3 ml IH QIDP PRN 10/20/17 10/20/18 History 0.083% 2.5mg/3mL neb] Potassium Chloride [Klor-Con 10mEq 10 meq PO BID 10/20/17 10/20/18 History tab] Folic Acid 0.8 mg PO DAILY 10/21/17 10/20/18 History Acetaminophen [Acetaminophen 325mg 650 mg PO Q4HP PRN tab 10/22/17 10/20/18 Rx tab] Ibuprofen [Ibuprofen 400mg 400 mg PO Q6HP PRN #20 tab 12/25/17 10/20/18 Rx Tablet] clonazePAM [Klonopin 1mg tablet] 1 mg PO HS 03/02/18 10/20/18 History Amlodipine Besylate [Norvasc 5mg 5 mg PO DAILY 10/20/18 10/20/18 History tablet] Allergies Allergy/AdvReac Type Severity Reaction Status Date / Time hydromorphone [From DILAUDID] Allergy Unknown Hallucinati Verified 03/30/18 10:46 ng Exam Vital signs and Labs for Last 24 Hours: Temp Pulse Resp BP Pulse Ox 98.1 F 75 17 141/59 H 99 10/21/18 08:00 10/21/18 08:00 10/21/18 08:00 10/21/18 08:00 10/21/18 08:00 Laboratory Results - last 24 hr 10/20/18 18:05: Sodium 144, Potassium 3.4 L, Chloride 106, Carbon Dioxide 24, Anion Gap 17.4 H, BUN 36 H, Creatinine 1.05 H, Estimated Creat Clear 37, Estimated GFR 50 L, Est GFR ( Amer) 61, Glucose 162 H, Calcium 8.7, Total Bilirubin 0.2, AST 39 H, ALT 22, Alkaline Phosphatase 77, Troponin I 0.04, Total Protein 6.0 L, Albumin 2.1 L, Globulin 3.9 H, Albumin/Globulin Ratio 0.5 L 10/20/18 18:05: PT 11.2, INR 1.08 10/20/18 18:26: WBC 22.7 H*, RBC 1.48 L*, Hgb 4.2 L*, Hct 15.5 L*, MCV 104.4 H, MCH 28.6, MCHC 27.4 L, RDW 20.2 H, Plt Count 521 H, MPV 7.9, Neut % (Auto) 84.5 H, Lymph % (Auto) 11.6, [place] % (Auto) 2.9, Eos % (Auto) 0.7, Baso % (Auto) 0.4, Neut # (Auto) 19.2 H, Lymph # (Auto) 2.6, [place] # (Auto) 0.7, Eos # (Auto) 0.2, Baso # (Auto) 0.1, Total Counted 100, Neutrophils % (Manual) 87 H, Lymphocytes % (Manual) 9 L, Monocytes % (Manual) 4, Platelet Estimate Moderate increase, RBC Morphology Not Reportable, Hypochromasia 2+, Macrocytosis 1+ 10/20/18 19:00: Blood Type O Positive, Antibody Screen Negative, Crossmatch ([facility]) See Detail 10/20/18 19:00: Lactate 3.6 H 10/20/18 19:00: Crossmatch ([facility]) See Detail 10/20/18 19:03: Blood Type Confirm O Positive 10/20/18 23:25: Troponin I 0.06 10/20/18 23:25: Lactate 0.7 10/21/18 05:48: Troponin I 0.12 H 10/21/18 05:48: WBC 14.0 H D, RBC 3.72 L D, Hgb 11.0 L D, Hct 34.4 L, MCV 92.7, MCH 29.3, MCHC 31.6 L, RDW 16.6, Plt Count 200 D, MPV 7.5, Neut % (Auto) 82.0 H , Lymph % (Auto) 11.4, [place] % (Auto) 3.9, Eos % (Auto) 2.2, Baso % (Auto) 0.5, Neut # (Auto) 11.5 H, Lymph # (Auto) 1.6, [place] # (Auto) 0.5, Eos # (Auto) 0.3, Baso # (Auto) 0.1 I & O for Last 24 hours: Intake & Output 10/18/18 10/19/18 10/20/18 10/21/18 23:59 23:59 23:59 23:59 Intake Total 0 / 0 789 / 789 Balance 0 / 0 789 / 789 Weight 57.379 kg 57.663 kg - Constitutional no acute distress, obese Comments: Elderly - *Routine HEENT Exam Head: Present: normocephalic, atraumatic Eye: Present: EOMI, PERRL ENT: Present: mucous membranes moist - *Routine Neck Exam Present: supple, full ROM. Absent: JVD - *Routine Respiratory Exam Present: CTA bilaterally. Absent: stridor, wheezes - *Routine Cardiovascular Exam Present: RRR, Normal S1, Normal S2. Absent: murmur - *Routine Abdominal Exam Present: soft, normoactive bowel sounds, tenderness (Mild diffuse) - *Routine Rectal Exam Patient deferred: visual exam - *Routine Exam Patient deferred: external exam - *Routine Extremities Exam Absent: cyanosis, clubbing, edema (Well-healed surgical scar on right knee consistent with TKA) Comments: Tender to palpation in right lumbar region, right gluteus, throughout L4-5 distribution of right leg - *Routine Skin Exam Present: intact. Absent: cyanosis, erythema - *Routine Neurological Exam Present: alert, oriented X3. Absent: altered mental status Assessment and Plan (1) Acute blood loss anemia Current visit: Yes Status: Acute Category: Medical Code(s): D62 - Acute posthemorrhagic anemia Secondary to GI bleed. See below for plan. S/p transfusion of 4 units of PRBC. (2) Class 1 obesity with body mass index (BMI) of 31.0 to 31.9 in adult Current visit: Yes Status: Chronic Category: Medical Code(s): E66.9 - Obesity, unspecified; Z68.31 - Body mass index (BMI) 31.0-31.9, adult Complicates all aspects of care (3) Upper GI bleed Current visit: Yes Status: Acute Category: Medical Code(s): K92.2 - Gastrointestinal hemorrhage, unspecified Suspect due to NSAID use given patient's report of regular ibuprofen use due to leg pain. At this time patient is n.p.o. PPI drip continued. GI consulted for scope. Further management pending results and findings. We will continue to monitor for any further bleeding. Hemoglobin goal for transfusion of 7. (4) Elevated blood pressure reading Current visit: No Status: Chronic Category: Medical Code(s): R03.0 - Elevated blood-pressure reading, without diagnosis of hypertension Restart antihypertensive medications when appropriate. Currently n.p.o., while mildly elevated, will continue to hold unless patient becomes hypertensive urgency (5) Acute kidney injury Current visit: Yes Status: Acute Category: Medical Code(s): N17.9 - Acute kidney failure, unspecified She is baseline creatinine is 0.67 from a year ago. While creatinine is normal at 1.0 it is still greater than a 20% increase from her baseline. Suspect due to prerenal status from severe anemia. Will monitor for improvement after transfusion and volume repletion.
[2018-10-21 09:21] LABS: Anion Gap 13.9 mEq/L (5-15); Calcium 8.3 mg/dL (8.5-10.1)
--- NOTE | 2018-10-21 10:11 | Pharmacy Consult Notes ---
[facility] Pharmacy VTE Monitoring - Patient Demographics Admission date: 10/20/18 Report Date: 10/21/18 Time: 10:11 Allergies/Adverse Reactions: Patient Allergies hydromorphone [From DILAUDID] Allergy (Unknown, Verified 03/30/18 10:46) Hallucinating Height: 1.35 m Weight: 57.663 kg Patient Problems: Current Active Problems Upper GI bleed (Acute) Acute blood loss anemia (Acute) Class 1 obesity with body mass index (BMI) of 31.0 to 31.9 in adult (Chronic) Acute kidney injury (Acute) - VTE Risk Labs: VTE Related Lab Results Hgb 11.0 g/dL (12.2-16.2) L D 10/21/18 05:48 Hct 34.4 % (37.0-47.0) L 10/21/18 05:48 Plt Count 200 K/mm3 (142-424) D 10/21/18 05:48 PT 11.2 seconds (9.4-11.8) 10/20/18 18:05 INR 1.08 (0.9-1.1) 10/20/18 18:05 BUN 22 mg/dL (7-18) H D 10/21/18 05:48 Creatinine 0.70 mg/dL (0.55-1.02) D 10/21/18 05:48 Estimated Creat Clear 41 mL/min (50-200) 10/21/18 05:48 VTE Score: 3 VTE Risk Level: Low Risk - Prophylaxis VTE Prophylaxis Ordered?: Yes Types of VTE Prophylaxis: TEDS Knee High Location of Applied Device: Bilateral Lower Extremeties - VTE Diagnosis Confirmed Treatment or plan recommended: Continue Current Treatment
--- NOTE | 2018-10-21 12:45 | Procedure Note ---
[facility] Procedure Note Procedure Note:: Upper Endoscopy Procedure Report: Esophagogastroduodenoscopy with cold biopsies Endoscopost: Abdirashid Llamas II, MD Referring Physician: Josep Up M.D. Date of Procedure: October 21, 2018 Equipment: Olympus GIF 180 standard upper endoscope Sedation: MAC sedation Indications: Mrs. Redd is an 78-year-old female who is here for diagnostic evaluation of her melanotic stools and coffee-ground emesis. She has had fatigue and malaise. Her initial hemoglobin was 4.2 with hematocrit 15.5. The patient does take ibuprofen 400 mg more than 3 times weekly. The patient also takes baby aspirin. She does have osteoarthritis and degenerative joint disease. She does report some epigastric abdominal tenderness. She has never had an upper endoscopy. Procedure: Prior to the procedure, a history and physical exam was performed, and patient's medications and allergies were reviewed. The risks, benefits and alternatives of the sedation and procedure were discussed with the patient. All questions were answered and informed consent was obtained. The patient was brought to the procedure room. Patient identification and proposed procedure were verified by the physician and the nurse. The patient was placed in a left lateral decubitus position and the scope was passed under direct vision. Throughout the procedure, the patient's blood pressure, pulse, and oxygen saturations were monitored continuously. The upper GI endoscopy was accomplished without difficulty. The patient tolerated the procedure well. Findings: The scope was passed directly into the upper esophagus and advanced to the third portion of the duodenum. Upon withdrawal there was some erosion/superficial ulceration in the second portion of the duodenum. Within the duodenal bulb was a deeper ulcer (10 mm) along the medial portion of the duodenal bulb. There was no clear visible vessel but there were some darker pigmented spots. There was no clot. The scope was withdrawn into the stomach. There was a even larger prepyloric gastric ulcer that was 18 to 20 mm. There was no evidence of any visible vessel. There was some mild chronic gastritis of the body and fundus of the stomach. The ulcerations were most consistent with NSAID induced ulceration. Cold biopsies were taken from the lesser curvature to rule out H. pylori. Upon retroflexion there was no hiatal hernia. The scope was then withdrawn into the esophagus. There was no evidence of reflux esophagitis or Velasquez's. The remainder of the esophageal mucosa was normal. Impression: 1. Large prepyloric gastric ulceration (20 mm)clean-based 2. Duodenal ulcer (medial wall duodenal wall10 mm) 3. Chronic gastritis Plan: I will follow-up the biopsies to rule out H. pylori. I do feel that these ulcers are related to NSAIDs/ibuprofen. I do believe that her drop in hemoglobin/hematocrit was a slow decline or otherwise she would have had si gnificant hemodynamic compromise. I would recommend parenteral iron infusion. I will recommend omeprazole twice daily and misoprostol 4 times daily. I will discuss the findings with patient and family.
[2018-10-22 06:29] LABS: Basophils # 0.1 K/mm3 (0-0.2); Basophils % 0.5 % (0.1-2.0); Eosinophils # 0.4 K/mm3 (0.0-0.4); Eosinophils % 2.7 % (0.1-12.0); Hemoglobin 11.3 g/dL (12.2-16.2); Lymphocytes # 1.8 K/mm3 (0.7-4.5); Lymphocytes % 13.7 % (10-50); Mean Corpuscular HGB Conc 32.4 g/dL (31.8-35.4); Mean Corpuscular Volume 90.5 fl (81-99); Monocytes # 0.6 K/mm3 (0.1-1.0); Monocytes % 4.4 % (1.7-9.3); Neutrophils # 10.2 K/mm3 (1.8-7.8); Neutrophils % 78.7 % (37.0-80.0); Platelet Count 189 K/mm3 (142-424); Red Blood Count 3.87 M/mm3 (4.20-5.40); Red Cell Distribution Width 18.2 % (11.5-17.5)
[2018-10-22 06:50] LABS: Anion Gap 10.8 mEq/L (5-15); Calcium 7.6 mg/dL (8.5-10.1)
--- NOTE | 2018-10-22 08:34 | Progress Note ---
Internal Medicine - PN: Subj *Date: 10/22/18 *Time: 08:32 Interval history: Patient feels much better, was able to eat breakfast this morning. Denies belly pain. Exam Vital signs and Labs for Last 24 Hours: Temp Pulse Resp BP Pulse Ox 97.5 F L 73 17 109/39 L 94 L 10/22/18 08:00 10/22/18 08:00 10/22/18 08:00 10/22/18 08:00 10/22/18 08:00 Laboratory Results - last 24 hr 10/21/18 05:48: Sodium 145, Potassium 2.9 L*, Chloride 108 H, Carbon Dioxide 26, Anion Gap 13.9, BUN 22 H D, Creatinine 0.70 D, Estimated Creat Clear 41, Estimated GFR 81, Est GFR ( Amer) 97 D, Glucose 94 D, Calcium 8.3 L 10/21/18 14:48: Ferritin 67 10/22/18 05:50: WBC 13.0 H, RBC 3.87 L, Hgb 11.3 L, Hct 35.0 L, MCV 90.5, MCH 29.3, MCHC 32.4, RDW 18.2 H, Plt Count 189, MPV 7.0 L, Neut % (Auto) 78.7, Lymph % (Auto) 13.7, [place] % (Auto) 4.4, Eos % (Auto) 2.7, Baso % (Auto) 0.5, Neut # (Auto) 10.2 H, Lymph # (Auto) 1.8, [place] # (Auto) 0.6, Eos # (Auto) 0.4, Baso # (Auto) 0.1 10/22/18 05:50: Sodium 145, Potassium 2.8 L*, Chloride 109 H, Carbon Dioxide 28, Anion Gap 10.8, BUN 13 D, Creatinine 0.56, Estimated Creat Clear 40, Estimated GFR 104, Est GFR ( Amer) 126 D, Glucose 106, Calcium 7.6 L I & O for Last 24 hours: Intake & Output 10/19/18 10/20/18 10/21/18 10/22/18 11:59 11:59 11:59 11:59 Intake Total 789 / 789 1992 Balance 789 / 789 1992 Weight 127 lb 2 oz 125 lb 8 oz Narrative: Patient looks good. Well-hydrated. Oropharynx clear. Lungs clear, heart rate regular. Abdomen soft, no epigastric pain. No tenderness. No distal edema or perfusion deficits. Assessment and Plan (1) Acute blood loss anemia Current visit: Yes Status: Acute Category: Medical Code(s): D62 - Acute posthemorrhagic anemia (2) Class 1 obesity with body mass index (BMI) of 31.0 to 31.9 in adult Current visit: Yes Status: Chronic Category: Medical Code(s): E66.9 - Obesity, unspecified; Z68.31 - Body mass index (BMI) 31.0-31.9, adult (3) Upper GI bleed Current visit: Yes Status: Acute Category: Medical Code(s): K92.2 - Gas trointestinal hemorrhage, unspecified (4) Elevated blood pressure reading Current visit: No Status: Chronic Category: Medical Code(s): R03.0 - Elevated blood-pressure reading, without diagnosis of hypertension (5) Acute kidney injury Current visit: Yes Status: Acute Category: Medical Code(s): N17.9 - Acute kidney failure, unspecified (6) Hypokalemia Current visit: Yes Status: Acute Category: Medical Code(s): E87.6 - Hypokalemia Replace with oral potassium today. (7) Hypocalcemia Current visit: Yes Status: Acute Category: Medical Code(s): E83.51 - Hypocalcemia Replace with IV calcium today. Blood counts have been very stable overnight. Check these again tomorrow. If electrolyte issues have resolved and blood counts remain stable will plan for discharge.
[2018-10-22 17:00] LABS: Anion Gap 12.3 mEq/L (5-15)
[2018-10-22 17:08] LABS: Calcium 8.5 mg/dL (8.5-10.1)
[2018-10-23 07:39] LABS: Basophils # 0.1 K/mm3 (0-0.2); Basophils % 0.4 % (0.1-2.0); Eosinophils # 0.3 K/mm3 (0.0-0.4); Eosinophils % 2.7 % (0.1-12.0); Hematocrit 39.6 % (37.0-47.0); Hemoglobin 12.4 g/dL (12.2-16.2); Lymphocytes # 1.7 K/mm3 (0.7-4.5); Lymphocytes % 12.8 % (10-50); Mean Corpuscular HGB Conc 31.3 g/dL (31.8-35.4); Mean Corpuscular Volume 92.5 fl (81-99); Mean Platelet Volume 7.6 fl (7.4-10.4); Monocytes # 0.6 K/mm3 (0.1-1.0); Monocytes % 4.7 % (1.7-9.3); Neutrophils # 10.3 K/mm3 (1.8-7.8); Neutrophils % 79.5 % (37.0-80.0); Platelet Count 204 K/mm3 (142-424); Red Blood Count 4.28 M/mm3 (4.20-5.40); Red Cell Distribution Width 18.6 % (11.5-17.5); White Blood Count 12.9 K/mm3 (4.8-10.8)
[2018-10-23 07:43] LABS: Anion Gap 11.5 mEq/L (5-15); Calcium 8.2 mg/dL (8.5-10.1)
--- NOTE | 2018-10-23 12:45 | Discharge Summary ---
General - General Admission date:: 10/20/18 Discharge date: 10/23/18 HPI HPI: Ms. Redd is an 78-year-old female with history of osteoarthritis and degenerative disc disease who presents with 3 days of coffee-ground emesis and melenic stools per her report. She states for the past several weeks she has been taking ibuprofen, 3 tablets, about every 4 hours for her right leg and back pain. She states she noted having emesis with not kary blood but flexed that looked like coffee grounds. Also has had black tarry stools over the past several days. Reports she is felt more weak and fatigued. She presented to the ER where she was noted to have an elevated BUN suggestive of GI bleed, and a hemoglobin in the 4 range. Patient was admitted to medicine for further management. Status post 4 units of blood transfused overnight. Initiated on PPI drip. Consult placed for GI to scope her today. Patient is remained hemodynamically stable overnight. Denies any nausea or vomiting today. Denies chest pain or shortness of breath. States she feels a little bit better but does have complaint about her right lower extremity pain and discomfort. Remains afebrile. Is n.p.o. since admission. Of note overnight had slight bump in her troponin, suspect due to type II NSTEMI due to severe anemia and impaired oxygen supply to myocardium. No significant signs of ischemia at this time. Hospital Course Hospital Course: Admitted and underwent egd,, GI report as below: Findings: The scope was passed directly into the upper esophagus and advanced to the third portion of the duodenum. Upon withdrawal there was some erosion/superficial ulceration in the second portion of the duodenum. Within the duodenal bulb was a deeper ulcer (10 mm) along the medial portion of the duodenal bulb. There was no clear visible vessel but there were some darker pigmented spots. There was no clot. The scope was withdrawn into the stomach. There was a even larger prepyloric gastric ulcer that was 18 to 20 mm. There was no evidence of any visible vessel. There was some mild chronic gastritis of the body and fundus of the stomach. The ulcerations were most consistent with NSAID induced ulceration. Cold biopsies were taken from the lesser curvature to rule out H. pylori. Upon retroflexion there was no hiatal hernia. The scope was then withdrawn into the esophagus. There was no evidence of reflux eso phagitis or Velasquez's. The remainder of the esophageal mucosa was normal. Impression: 1. Large prepyloric gastric ulceration (20 mm)clean-based 2. Duodenal ulcer (medial wall duodenal wall10 mm) 3. Chronic gastritis The patient did well and her H/H improved after transfusions with no further evidence of GI bleeding. Electrolyte imbalance and ELSA were treated successfully and this am was feeling good. Plan will be to d/c with close f/u in my offices and rx for PPI and sucralfate will be given. Objective Vital signs: Temp Pulse Resp BP Pulse Ox 97.9 F 93 H 93 H 142/64 H 97 10/23/18 08:00 10/23/18 08:00 10/23/18 08:00 10/23/18 08:00 10/23/18 08:00 no acute distress - *Routine HEENT Exam Head: Present: normocephalic, atraumatic Eye: Present: EOMI - *Routine Respiratory Exam Present: CTA bilaterally - *Routine Cardiovascular Exam Present: RRR, Normal S1, Normal S2 - *Routine Abdominal Exam Present: soft, normoactive bowel sounds - *Routine Extremities Exam Present: full ROM. Absent: cyanosis, edema - *Routine Neurological Exam Present: alert, oriented X3 Results Labs on day of discharge: Labs from last 24 hours 10/23/18 10/23/18 10/22/18 07:00 07:00 16:35 WBC 12.9 H RBC 4.28 Hgb 12.4 Hct 39.6 MCV 92.5 MCH 28.9 MCHC 31.3 L RDW 18.6 H Plt Count 204 MPV 7.6 Neut % (Auto) 79.5 Lymph % (Auto) 12.8 [place] % (Auto) 4.7 Eos % (Auto) 2.7 Baso % (Auto) 0.4 Neut # (Auto) 10.3 H Lymph # (Auto) 1.7 [place] # (Auto) 0.6 Eos # (Auto) 0.3 Baso # (Auto) 0.1 Sodium 146 H 145 Potassium 3.5 3.3 L Chloride 107 109 H Carbon Dioxide 31 27 Anion Gap 11.5 12.3 BUN 10 13 Creatinine 0.62 0.71 D Estimated Creat Clear 40 40 Estimated GFR 93 79 Est GFR ( Amer) 112 96 D Glucose 97 D 128 H D Calcium 8.2 L 8.5 D Preliminary micro results at discharge 08/01/19 19:00 Blood Culture - Preliminary Blood NO GROWTH AFTER 48 HOURS 10/20/18 19:00 Blood Culture - Preliminary Blood NO GROWTH AFTER 48 HOURS DS: Diagnosis - Discharge Diagnosis (1) Acute blood loss anemia Status: Resolved (2) Class 1 obesity with body mass index (BMI) of 31.0 to 31.9 in adult Status: Chronic (3) Upper GI bleed Status: Resolved (4) Elevated blood pressure reading Status: Chronic (5) Acute kidney injury Status: Resolved (6) Hypokalemia Status: Resolved (7) Hypocalcemia Status: Resolved Discharge Plan - Patient Discharge Instructions ACTIVITY: Continue current activity DIET: continue same diet Patient Instructions: Blood Transfusion, Anemia, Low-Fiber/Low-Residue Diet, DI for Blood Transfusion, DI for Acute Abdomen, Gastrointestinal Bleeding - Follow up Plan Follow up with: Josep Up MD [Primary Care Provider] - 10/31/18 Disposition: Home, Self-Snf Medications: Home Medications Medication Instructions Recorded Confirmed Type Calcium Carbonate/Vitamin D3 1 each PO DAILY 09/27/17 10/20/18 History [Caltrate 600 Plus D3 Tablet] Cholecalciferol (Vitamin D3) 1,000 unit PO DAILY 09/27/17 10/20/18 History [Vitamin D3] Duloxetine HCl 60 mg PO BID 09/27/17 10/21/18 History Multivit with Iron-Minerals 1 each PO DAILY 09/27/17 10/20/18 History [Complete Senior] Pravastatin Sodium [Pravachol 40mg 40 mg PO HS 09/27/17 10/20/18 History Tablet] Pregabalin [Lyrica 100mg Cap] 100 mg PO TID 09/27/17 10/20/18 History Aspirin [Aspirin 81mg EC Tab] 81 mg PO DAILY 09/28/17 10/20/18 History Albuterol Sulfate [Albuterol 3 ml IH QIDP PRN 10/20/17 10/20/18 History 0.083% 2.5mg/3mL neb] Potassium Chloride [Klor-Con 10mEq 10 meq PO BID 10/20/17 10/20/18 History tab] clonazePAM [Klonopin 1mg tablet] 1 mg PO HS 03/02/18 10/20/18 History Amlodipine Besylate [Norvasc 5mg 5 mg PO DAILY 10/20/18 10/20/18 History tablet] Folic Acid [Folic Acid 1mg tablet] 1 mg PO DAILY 10/21/18 10/21/18 History Quetiapine Fumarate 50 mg PO HS 10/21/18 10/21/18 History Pantoprazole Sodium [Protonix 40mg 40 mg PO BID 30 Days #60 tab 10/23/18 Rx tablet] Sucralfate [Sucralfate 1gm 1 gm PO ACHS #120 tab 10/23/18 Rx Tab] Prescriptions/Medication Reconciliation: New Pantoprazole Sodium [Protonix 40mg tablet] 40 mg PO BID 30 Days #60 tab Sucralfate [Sucralfate 1gm Tab] 1 gm PO ACHS #120 tab Continued Pregabalin [Lyrica 100mg Cap] 100 mg PO TID Pravastatin Sodium [Pravachol 40mg Tablet] 40 mg PO HS Multivit with Iron-Minerals [Complete Senior] 1 each PO DAILY Cholecalciferol (Vitamin D3) [Vitamin D3] 1,000 unit PO DAILY Calcium Carbonate/Vitamin D3 [Caltrate 600 Plus D3 Tablet] 1 each PO DAILY Aspirin [Aspirin 81mg EC Tab] 81 mg PO DAILY Potassium Chloride [Klor-Con 10mEq tab] 10 meq PO BID clonazePAM [Klonopin 1mg tablet] 1 mg PO HS Quetiapine Fumarate 50 mg PO HS Duloxetine HCl 60 mg PO BID Albuterol Sulfate [Albuterol 0.083% 2.5mg/3mL neb] 3 ml IH QIDP PRN PRN Reason: BREATHING PROBLEMS Amlodipine Besylate [Norvasc 5mg tablet] 5 mg PO DAILY Folic Acid [Folic Acid 1mg tablet] 1 mg PO DAILY
== END 2018-10-23 13:27 | disposition home or self-care (01) | DRG 377 ==
LOC: ER 17:45 → 2ND 17:45 → OBSVTOIN 21:36 → 2ND 21:37
PROVIDERS: ADMIT Family Medicine; ATTEND Internal Medicine Adolescent Medicine
CPT/HCPCS: 36415; 36430; 71010; 71045; 74177; 80048; 80053; 82728; 83540; 83550; 83605; 84484; 85007; 85025; 85610; 86850; 87040; 88305; 93005; 96365; 96366; 96375; 97162; 99285; J2405; P9016; Q9967

== ENCOUNTER → 2018-11-11 12:07 | Outpatient (CLI) | payer MEDICARE, SELFPAY ==
--- NOTE | 2018-11-11 12:18 | XR_ITS ---
PROCEDURE: XR KNEE RT 3V CLINICAL INDICATION: RT HIP PAIN COMPARISON: XR HIP RT 2-3V W/PELVIS from 11/11/2018 FINDINGS: No fracture or dislocation. No lytic or blastic change. There is normal mineralization. Status post total knee replacement with good alignment. Other findings:None. IMPRESSION: Status post total knee replacement, no acute finding Dictated by: Edgar Ramesh MD 11/11/2018 15:59 Signed by: <Electronically signed by Edgar Ramesh MD in [place]> 11/11/2018 15:59
--- NOTE | 2018-11-11 12:18 | XR_ITS ---
PROCEDURE: XR HIP RT 2-3V W/PELVIS CLINICAL INDICATION: RT HIP PAIN COMPARISON: HIPCMLT XR hip LT 2-3V w/pelvis from 03/02/2018 FINDINGS: Pain pump apparatus overlies the right ileal region. This obscures the underlying bony structures. Osteoarthritic changes are present involving the right hip. The femoral head is somewhat obscured by the overlying pain pump. There is some question of irregularity of the femoral head. Consider CT for more thorough evaluation. No acute fracture or dislocation evident. There is an old fracture of the right and left superior and inferior pubic rami. Mild osteoarthritic changes are present in the left hip. IMPRESSION: Osteoarthritis of the right hip which appears to have progressed since the previous exam. There is questionable irregularity of the femoral head. Consider CT for further evaluation as the femoral head is somewhat obscured by the overlying pain pump. Bilateral superior and inferior pubic rami fractures. Dictated by: Edgar Ramesh MD 11/11/2018 15:50 Signed by: <Electronically signed by Edgar Ramesh MD in [place]> 11/11/2018 15:50
[2018-11-11 12:31] LABS: Basophils % 0.2 % (0.1-2.0); Eosinophils # 0.2 K/mm3 (0.0-0.4); Eosinophils % 2.6 % (0.1-12.0); Hematocrit 35.7 % (37.0-47.0); Lymphocytes % 17.1 % (10-50); Mean Corpuscular HGB Conc 30.8 g/dL (31.8-35.4); Mean Corpuscular Hemoglobin 29.4 pg (27.0-31.2); Mean Corpuscular Volume 95.5 fl (81-99); Mean Platelet Volume 6.9 fl (7.4-10.4); Monocytes # 0.2 K/mm3 (0.1-1.0); Monocytes % 2.8 % (1.7-9.3); Neutrophils # 4.6 K/mm3 (1.8-7.8); Neutrophils % 77.2 % (37.0-80.0); Platelet Count 157 K/mm3 (142-424); Red Blood Count 3.74 M/mm3 (4.20-5.40); Red Cell Distribution Width 16.4 % (11.5-17.5); White Blood Count 5.9 K/mm3 (4.8-10.8)
[2018-11-11 13:07] LABS: Erythrocyte Sedimentation Rate 69 mm/hr (0-30)
[2018-11-11 15:21] LABS: Alanine Aminotransferase 19 U/L (12-78); Albumin/Globulin Ratio 0.9 (1.1-1.8); Alkaline Phosphatase 89 U/L (46-116); Anion Gap 7.8 mEq/L (5-15); Aspartate Amino Transferase 20 U/L (15-37); Bilirubin,Total 0.3 mg/dL (0.2-1.0); Blood Urea Nitrogen 13 mg/dL (7-18); Calcium 8.7 mg/dL (8.5-10.1); Carbon Dioxide 33 mmol/L (21.0-32.0); Chloride 105 mmol/L (98-107); Creatinine,Serum 0.62 mg/dL (0.55-1.02); Estimated Glomerular Filt Rate 93 ml/min (>60); GFR (African American) 112 ML/MIN (>60); Globulin 3.3 gm/dl (1.3-3.2); Glucose 79 mg/dL (74-106); Potassium 3.8 mmoL/L (3.5-5.1); Sodium 142 mmol/L (136-145); Total Protein,Serum 6.3 gm/dL (6.4-8.2)
== END ==
PROVIDERS: Visit Provider Internal Medicine Adolescent Medicine
DX: K92.2 Gastrointestinal hemorrhage, unspecified (principal); M25.551 Pain in right hip
CPT/HCPCS: 36415; 73502; 73562; 80053; 85025; 85651

== ENCOUNTER → 2018-11-22 13:21 | Outpatient (POV) | payer MEDICARE, SELFPAY ==
[2018-11-22 13:27] VITALS: BP 128/75; PULSE 86; RESP 18; O2SAT 98; BMI 29.1
--- NOTE | 2018-11-22 13:42 | HMH.PMPROC ---
- Procedure Date: 11/22/18 Time: 13:42 Anesthesiologist:: Concetta Morales APRN Complications:: None Pre-procedure Diagnosis:: Degenerative disc disease lumbar spine with lumbar radiculopathy and postlaminectomy syndrome lumbar spine, right hip pain, right knee pain Post-procedure Diagnosis:: Same Indications for Procedure:: Patient is a very pleasant 78-year-old white female who presents today for intrathecal pain pump adjustment. She is taking large amounts of NSAIDs which resulted in a gastric bleed. Patient has been recently taken off all of these and has subsequently had increasing pain. She has imaging of her hip and her me showing degeneration and arthritis. We will increase her pump today see if this is helpful we will also start with some samples of a topical anti-inflammatory for her knees and hips at this point I would like to try to utilize and optimize her intrathecal therapy prior to giving her steroid injections. If this is not beneficial we will move to steroid injections. She is currently on a fentanyl pump going at 425 mcg/day Physical Exam General: Alert and oriented x3, no acute distress, pleasant and cooperative, [on room air] Lungs: Resps E/U, Symmetrical chest expansion, Eyes: PERRL Musculoskeletal: Flexion and extension of lumbar spine somewhat guarded secondary to pain, deep tendon reflexes normal, strength in upper and lower extremities [5/5], [abnormal gait noted] Neurological: speech clear, source inspector equal, no gross sensory deficits Procedure Details:: Informed consent was obtained and the risk and benefits of the procedure were explained to the patient. The patient was taken to the procedure room where noninvasive monitoring was placed including noninvasive blood pressure cuff and pulse oximeter. Patient's pump was interrogated and reprogrammed. The infusion rate was increased to 550 mcg of fentanyl per day. The patient tolerated the procedure well. Plan and Disposition:: We will see her back in 2 weeks reassess her symptoms at that time we will give her some topical anti-inflammatories to see if this is beneficial for her. She is been instructed to call the office if she has any issues prior to her next appointment. Dr. Collins has reviewed this note and agrees with this plan of care. This note was dictated using voice recognition software and may contain errors or omissions
--- NOTE | 2018-11-22 13:45 | P.PCN_ITS ---
- Procedure Date: 11/22/18 Time: 13:42 Anesthesiologist:: Concetta Morales APRN Complications:: None Pre-procedure Diagnosis:: Degenerative disc disease lumbar spine with lumbar radiculopathy and postlaminectomy syndrome lumbar spine, right hip pain, right knee pain Post-procedure Diagnosis:: Same Indications for Procedure:: Patient is a very pleasant 78-year-old white female who presents today for intrathecal pain pump adjustment. She is taking large amounts of NSAIDs which resulted in a gastric bleed. Patient has been recently taken off all of these and has subsequently had increasing pain. She has imaging of her hip and her me showing degeneration and arthritis. We will increase her pump today see if this is helpful we will also start with some samples of a topical anti-inflammatory for her knees and hips at this point I would like to try to utilize and optimize her intrathecal therapy prior to giving her steroid injections. If this is not beneficial we will move to steroid injections. She is currently on a fentanyl pump going at 425 mcg/day Physical Exam General: Alert and oriented x3, no acute distress, pleasant and cooperative, [on room air] Lungs: Resps E/U, Symmetrical chest expansion, Eyes: PERRL Musculoskeletal: Flexion and extension of lumbar spine somewhat guarded secondary to pain, deep tendon reflexes normal, strength in upper and lower e xtremities [5/5], [abnormal gait noted] Neurological: speech clear, marketing compliance manager equal, no gross sensory deficits Procedure Details:: Informed consent was obtained and the risk and benefits of the procedure were explained to the patient. The patient was taken to the procedure room where noninvasive monitoring was placed including noninvasive blood pressure cuff and pulse oximeter. Patient's pump was interrogated and reprogrammed. The infusion rate was increased to 550 mcg of fentanyl per day. The patient tolerated the procedure well. Plan and Disposition:: We will see her back in 2 weeks reassess her symptoms at that time we will give her some topical anti-inflammatories to see if this is beneficial for her. She is been instructed to call the office if she has any issues prior to her next appointment. Dr. Collins has reviewed this note and agrees with this plan of care. This note was dictated using voice recognition software and may contain errors or omissions
== END ==
PROVIDERS: PCP Internal Medicine Adolescent Medicine; Visit Provider Clinical Nurse Specialist Family Health
DX: M51.16 Intervertebral disc disorders with radiculopathy, lumbar region (principal); M96.1 Postlaminectomy syndrome, not elsewhere classified; M25.551 Pain in right hip; M25.561 Pain in right knee
CPT/HCPCS: 62368; 99212

== ENCOUNTER → 2018-12-06 09:39 | Outpatient (POV) | payer MEDICARE, SELFPAY ==
[2018-12-06 09:47] VITALS: BP 164/70; PULSE 88; RESP 18; O2SAT 98; BMI 29.5
--- NOTE | 2018-12-06 12:46 | HMH.PAINSOAP ---
[facility] Pain Management SOAP Note Subjective:: Patient is a pleasant 78-year-old white female who presents today for follow-up. Patient was taking large amounts of NSAIDs on top of her intrathecal pain pump which resulted in gastric bleed. Patient has been recently taken all of these off of all these medications and has increasing pain especially in her right knee. She is had her knee replaced several years ago. Imaging of her hip shows degeneration and arthritis. We did increase her pump however it did help her back but not her knee and hip. She tried topical anti-inflammatories with no success. She rates her pain a 9 out of 10 ROS General: no recent weight change, no fever, no sleep disturbances Respiratory: no cough, no shortness of air, no recurring pulmonary infections Cardiovascular/Peripheral Vascular: No chest pain, No palpitations, no edema, no shortness of breath. Gastrointestinal: no incontinence, normal bowel movements reported Genitourinary: no incontinence Musculoskeletal: Right knee pain Psychiatric: normal mood/ affect Neurological: [denies weakness in extremities], [denies balance issues] Objective:: Physical Exam General: Alert and oriented x3, no acute distress, pleasant and cooperative, [on room air] Lungs: Resps E/U, Symmetrical chest expansion, Eyes: PERRL Musculoskeletal: Flexion and extension of lumbar spine somewhat guarded secondary to pain, deep tendon reflexes normal, strength in upper and lower extremities [5/5], [abnormal gait noted] Neurological: speech clear, end finder twisting department equal, no gross sensory deficits Assessment:: Right knee pain, CRPS right knee, degenerative disc disease lumbar spine with lumbar radiculopathy Plan:: We will set her up for genicular block of the right knee she understands that this is diagnostic in nature I believe it is beneficial. I will follow-up with the patient after injection reassess her symptoms at the time she is been instructed to call the office if she has any issues prior to her next appointment. Dr. Collins has reviewed this note and agrees with this plan of care. This note was dictated using voice recognition software and may contain errors or omissions [facility] History I have reviewed the patient's past medical history: Yes Medical History: Reports:: Coronary Artery Disease, Hyperlipidemia, Hypertension Denies:: Cancer, Diabetes Mellitus Type 1, Diabetes Mellitus Type 2, Internal Pacemaker, MRSA, Seizures *Have you ever received a pneumonia vaccine?: Yes *Have you received a flu vaccine this season?: Yes Other Medical History: Reports: Arthritis, Sinus Problems. Denies: Blood Transfusion Reaction Laterality Cases: Right: Arthroscopy Knee Other Surgeries: Yes: Cardiac Catheterization, Colonoscopy, Coronary Stent, Other (BACK SX). No: Pacemaker Amputation: No Fractures: Yes - *Social History Smoking Status: Current every day smoker Tobacco Type: cigarettes # Packs/Day (cigarettes): 1 Alcohol Intake: never *Occupational Status:: retired Housing: house Household Members: family *Travel in the last 8 weeks: None Family Hx:: Cancer, Heart Attack, Hypertension
== END ==
PROVIDERS: PCP Internal Medicine Adolescent Medicine; Visit Provider Clinical Nurse Specialist Family Health
DX: M51.16 Intervertebral disc disorders with radiculopathy, lumbar region (principal); M25.561 Pain in right knee
CPT/HCPCS: 99212

== ENCOUNTER → 2019-01-31 09:31 | Outpatient (CLI) | payer MEDICARE, SELFPAY ==
--- NOTE | 2019-01-31 09:37 | XR_ITS ---
PROCEDURE: XR SHOULDER LT MIN 2V CLINICAL INDICATION: proximal humerus fx Follow-up fracture COMPARISON: SHOULDCMRT XR shoulder RT min 2V from 01/19/2018 SHOULDCMRT XR shoulder RT min 2V from 02/08/2018 SHOULDCMLT XR shoulder LT min 2V from 03/02/2018 SHOULDCMRT XR shoulder RT min 2V from 03/30/2018 XR FOREARM LT 2V from 01/25/2019 XR HUMERUS LT from 01/25/2019 FINDINGS: No change left humeral neck fracture with mild medial displacement of the distal fracture fragment and with longitudinal component through the greater tuberosity. The medial displacement appears slightly greater compared to the previous exam. No significant callus formation. IMPRESSION: Mildly displaced humeral neck fracture. Overall not significantly changed Dictated by: Edgar Ramesh MD 02/01/2019 11:39 Electronically signed by Edgar Ramesh MD in [place] 02/01/2019 11:39
== END ==
PROVIDERS: PCP Internal Medicine Adolescent Medicine; Visit Provider Orthopaedic Surgery
DX: S42.202A Unspecified fracture of upper end of left humerus, initial encounter for closed fracture (principal)
CPT/HCPCS: 73030

== ENCOUNTER → 2019-02-20 11:51 | Outpatient (POV) | payer MEDICARE, SELFPAY ==
[2019-02-20 12:46] LABS: Basophils % 0.2 % (0.1-2.0); Eosinophils # 0.1 K/mm3 (0.0-0.4); Eosinophils % 1.6 % (0.1-12.0); Hematocrit 34.6 % (37.0-47.0); Hemoglobin 10.7 g/dL (12.2-16.2); Lymphocytes # 1.3 K/mm3 (0.7-4.5); Lymphocytes % 19.2 % (10-50); Mean Corpuscular Hemoglobin 30.5 pg (27.0-31.2); Mean Corpuscular Volume 98.3 fl (81-99); Mean Platelet Volume 7.9 fl (7.4-10.4); Monocytes # 0.3 K/mm3 (0.1-1.0); Neutrophils # 5.3 K/mm3 (1.8-7.8); Platelet Count 150 K/mm3 (142-424); Red Blood Count 3.52 M/mm3 (4.20-5.40); Red Cell Distribution Width 15.1 % (11.5-17.5)
[2019-02-20 14:50] LABS: Ferritin 34 ng/mL (8-388)
[2019-02-21 08:12] LABS: Iron 108 ug/dL (27-139); UIBC 204 ug/dL (118-369)
[2019-02-21 10:32] LABS: Iron Saturation 35 % (15-55)
== END ==
PROVIDERS: PCP Internal Medicine Adolescent Medicine; Visit Provider Nurse Practitioner Family
DX: D50.0 Iron deficiency anemia secondary to blood loss (chronic) (principal); K25.9 Gastric ulcer, unspecified as acute or chronic, without hemorrhage or perforation; K26.6 Chronic or unspecified duodenal ulcer with both hemorrhage and perforation
CPT/HCPCS: 36415; 82728; 83540; 83550; 85025

== ENCOUNTER → 2019-02-21 09:53 | Outpatient (POV) | payer MEDICARE, SELFPAY ==
--- NOTE | 2019-02-21 10:00 | XR_ITS ---
PROCEDURE: XR SHOULDER LT MIN 2V CLINICAL INDICATION: left proximal humerus fracture fu Follow-up fracture COMPARISON: SHOULDCMRT XR shoulder RT min 2V from 02/08/2018 SHOULDCMLT XR shoulder LT min 2V from 03/02/2018 SHOULDCMRT XR shoulder RT min 2V from 03/30/2018 XR SHOULDER LT MIN 2V from 01/31/2019 FINDINGS: Comminuted left humeral neck fracture once again noted with mild displacement of the distal fracture fragment medially. There is developing callus formation at the fracture site. There is mild inferior subluxation of the humeral head. No kary dislocation. Postsurgical changes are present of the thoracic spine IMPRESSION: Healing comminuted displaced left humeral neck fracture Dictated by: Edgar Ramesh MD 02/21/2019 16:16 Electronically signed by Edgar Ramesh MD in [place] 02/21/2019 16:16
[2019-02-21 11:36] VITALS: BP 117/95; PULSE 74; RESP 18; O2SAT 98; BMI 29.7
--- NOTE | 2019-02-21 12:42 | HMH.PAINSOAP ---
[facility] Pain Management SOAP Note Subjective:: Patient is a pleasant 78-year-old white female who presents today for follow-up after right knee geniculate block. Patient is being treated for right knee pain with degenerative osteoarthritis. She also has an intrathecal pain pump in place which helps her with her back, however she says she gets no relief with her right knee pain. She had a previous right total knee replacement and says she has had ongoing pain since that procedure. Patient says she got approximately 20% relief following her geniculate block. She rates her pain an 8 out of 10 today. Patient is requesting oral opiates today. She says that the only thing that will give her relief. She is not interested in any type of injective therapy. Patient says that she is not interested in any further injective therapy. She is accompanied by her family member today who states that the patient is not ambulating and is refusing any type of physical therapy. Patient does tell me today that she is not interested in any type of therapy. She says this worsens her pain. She also says that she is not doing any type of home stretching. She is not interested in any type of anti-inflammatories at this time. Review of Systems General: No recent weight changes, no fever, no sleep disturbances Respiratory: No cough, no shortness of air, no recurring pulmonary infections Cardiovascular/peripheral vascular: No chest pain, no palpitations, no edema, no shortness of breath Gastrointestinal: No new onset incontinence, normal bowel movements reported Genitourinary: No new onset incontinence Musculoskeletal: Low back pain, right knee pain Psychiatric: Normal mood/affect Neurological: [Denies weakness in extremities], [denies balance issues] Objective:: Physical exam General: Alert and oriented x3, no acute distress, pleasant and cooperative, [on room air] Lungs: Respirations even and unlabored, symmetrical chest expansion Eyes: PERRL Musculoskeletal: Flexion and extension of lumbar spine somewhat guarded secondary to pain, deep tendon reflexes normal, strength in upper and lower extremities [5/5], [abnormal gait noted] Neurological: Speech clear, project management manager equal, no gross sensory deficit Assessment:: Degenerative disc disease lumbar spine with lumbar radiculopathy, right knee pain Plan:: Patient had a long discussion concerning oral opiates with her intrathecal pain pump. She understands I will not be able to provide her with any type of oral opiates at this time. Patient says she is not interested in injective therapies at this time or physical therapy at this time. She does have a follow-up appointment for her intrathecal pain pump refill. She says she will follow-up with us at that time. She has been instructed to contact the clinic if she changes her mind concerning injective therapy or physical therapy. We will see her back at her next refill appointment. Dr. Collins has reviewed this note and agrees with this plan of care. This note was dictated using voice recognition software and make contain errors or omissions. [facility] History I have reviewed the patient's past medical history: Yes Medical History: Reports:: Coronary Artery Disease, Hyperlipidemia, Hypertension Denies:: Cancer, Diabetes Mellitus Type 1, Diabetes Mellitus Type 2, Internal Pacemaker, MRSA, Seizures *Have you ever received a pneumonia vaccine?: Yes *Have you received a flu vaccine this season?: Yes Other Medical History: Reports: Arthritis, Sinus Problems. Denies: Blood Transfusion Reaction Laterality Cases: Other Surgeries: Yes: Cardiac Catheterization, Colonoscopy, Coronary Stent, Other (BACK SX). No: Pacemaker Amputation: No Fractures: Yes - *Social History Smoking Status: Former smoker Tobacco Type: cigarettes # Packs/Day (cigarettes): 1 Alcohol Intake: never *Occupational Status:: other Housing: house Household Members: family *Travel in the last 8 weeks:
--- NOTE | 2019-02-21 12:46 | P.CONS_ITS ---
[facility] Pain Management SOAP Note Subjective:: Patient is a pleasant 78-year-old white female who presents today for follow-up after right knee geniculate block. Patient is being treated for right knee pain with degenerative osteoarthritis. She also has an intrathecal pain pump in place which helps her with her back, however she says she gets no relief with her right knee pain. She had a previous right total knee replacement and says she has had ongoing pain since that procedure. Patient says she got approximately 20% relief following her geniculate block. She rates her pain an 8 out of 10 today. Patient is requesting oral opiates today. She says that the only thing that will give her relief. She is not interested in any type of in jective therapy. Patient says that she is not interested in any further injective therapy. She is accompanied by her family member today who states that the patient is not ambulating and is refusing any type of physical therapy. Patient does tell me today that she is not interested in any type of therapy. She says this worsens her pain. She also says that she is not doing any type of home stretching. She is not interested in any type of anti-inflammatories at this time. Review of Systems General: No recent weight changes, no fever, no sleep disturbances Respiratory: No cough, no shortness of air, no recurring pulmonary infections Cardiovascular/peripheral vascular: No chest pain, no palpitations, no edema, no shortness of breath Gastrointestinal: No new onset incontinence, normal bowel movements reported Genitourinary: No new onset incontinence Musculoskeletal: Low back pain, right knee pain Psychiatric: Normal mood/affect Neurological: [Denies weakness in extremities], [denies balance issues] Objective:: Physical exam General: Alert and oriented x3, no acute distress, pleasant and cooperative, [on room air] Lungs: Respirations even and unlabored, symmetrical chest expansion Eyes: PERRL Musculoskeletal: Flexion and extension of lumbar spine somewhat guarded secondary to pain, deep tendon reflexes normal, strength in upper and lower extremities [5/5], [abnormal gait noted] Neurological: Speech clear, animal keeper equal, no gross sensory deficit Assessment:: Degenerative disc disease lumbar spine with lumbar radiculopathy, right knee pain Plan:: Patient had a long discussion concerning oral opiates with her intrathecal pain pump. She understands I will not be able to provide her with any type of oral opiates at this time. Patient says she is not interested in injective therapies at this time or physical therapy at this time. She does have a follow-up appointment for her intrathecal pain pump refill. She says she will follow-up with us at that time. She has been instructed to contact the clinic if she changes her mind concerning injective therapy or physical therapy. We will see her back at her next refill appointment. Dr. Collins has reviewed this note and agrees with this plan of care. This note was dictated using voice recognition software and make contain errors or omissions. [facility] History I have reviewed the patient's past medical history: Yes Medical History: Reports:: Coronary Artery Disease, Hyperlipidemia, Hypertension Denies:: Cancer, Diabetes Mellitus Type 1, Diabetes Mellitus Type 2, Internal Pacemaker, MRSA, Seizures *Have you ever received a pneumonia vaccine?: Yes *Have you received a flu vaccine this season?: Yes Other Medical History: Reports: Arthritis, Sinus Problems. Denies: Blood Transfusion Reaction Laterality Cases: Other Surgeries: Yes: Cardiac Catheterization, Colonoscopy,
== END ==
PROVIDERS: PCP Internal Medicine Adolescent Medicine; Visit Provider Clinical Nurse Specialist Family Health
DX: S42.202A Unspecified fracture of upper end of left humerus, initial encounter for closed fracture (principal)
CPT/HCPCS: 73030; 99212

== ENCOUNTER 2023-07-26 14:49 | Outpatient (POV) | payer MEDICARE, MEDICAID, SELFPAY ==
--- NOTE | 2023-07-26 14:56 | A.OFFVIS_ITS ---
[facility] Pain Management SOAP Note Subjective:: Patient is a pleasant 82-year-old female who presents today via telehealth visit. This visit is occurring at the patient's home they are within the alf. Patient's son is present also for this audio visit and they have both given consent for this. Today she rates her pain a 9 out of 10. Patient denies any new trauma or injury. She does state that she is having increased pain in her bilateral arms as well as her back. 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 She is currently managed with fentanyl 3000 micrograms per mL with a daily dose 440 mcg/day. She denies any side effects from this medication. Patient's son does state that they are planning on making a in person visit to our office here within the next couple of weeks. Patient denies having gotten any injections in the past. Her Kennedy has been reviewed. Review of Systems: General: No recent weight changes, no fever, no sleep disturbances Respiratory: No cough, no shortness of air, no recurring pulmonary infections Cardiovascular/peripheral vascular: No chest pain, no palpitations, no edema, no shortness of breath Gastrointestinal: No new onset incontinence, normal bowel movements reported Genitourinary: No new onset incontinence Musculoskeletal: Low back pain, bilateral arm pain Psychiatric: [Normal mood/affect] Neurological: [Denies weakness in extremities], [denies balance issues] Objective:: General: Alert and oriented x3, pleasant and cooperative Lungs: Patient is able to say complete sentences without dyspnea Neurological: Speech clear Assessment:: Degenerative disc disease of lumbar spine with neck pain and cervical radiculopathy symptoms Plan:: Patient is experiencing worsening pain in her low back and bilateral arms. I have discussed with patient in future she may benefit from injection therapy however we would have to see her in person for this. I have counseled the patient that I will reach out to [facility] and see if they can contact the patient for a intrathecal increase. Unfortunately due to the patient being at the [facility] location we do not have exact specifics of what her pump medication is at and we will let [facility] may be increased at their discretion. Patient is planning on making an in person visit here in the next couple of weeks. We will follow- up with her at this visit for reevaluation of symptoms and plan of care. Patient has been instructed to contact the clinic with any concerns before the next appointment. Dr. Collins has reviewed this note and agrees with this plan of care. This note was dictated using voice recognition software and make contain errors or omissions. -- It Is medically necessary for this patient to continue to have their intrathecal pump refilled at regular intervals. This patient had an intrathecal pain pump implanted after meeting criteria of chronic intractable pain for greater than 3 months and failing conservative treatments. Patient has committed and been compliant to the treatment plan and all planned follow up care. Since implantation of the intrathecal pain pump, the patient has had decreased pain and been more functional. Oral medications have been reduced including intake of oral opioids. Patient continues to do well with intrathecal therapy with decrease in pain symptoms and increase in functional status. Stopping intra thecal medications can lead to life threatening withdrawal, seizures, cardiac arrest, severe pain, and possible . Pumps that are not refilled at regular intervals can be damages and cause and need for replacement. We continually titrate dose and concentration to optimize pain relief and function. We are limited in concentration for certain drugs to safely deliver medications through the pump and stay within the recommendations from the Polyanalgesic Consensus Committee Guidelines. Depending on dose and concentration these pumps may need to be refilled sooner than 3 months as we titrate. [facility] Disclaimer: The information contained in this section may have been updated after the pat ient was seen, as this information can be updated by other users. Social History Smoking Status: Former smoker tobacco type: cigarettes packs per day: 1 alcohol intake: never current occupational status: retired Travel in the last 8 weeks: None household members: family housing: house current occupational exposures/hazards: No caffeine: No
== END 2023-07-26 23:59 | disposition home or self-care (01) ==
LOC: SC.PAIN 14:51
PROVIDERS: Visit Provider Nurse Practitioner Family
DX: G89.29 Other chronic pain (principal); M51.36 Other intervertebral disc degeneration, lumbar region; Z97.8 Presence of other specified devices
CPT/HCPCS: 99441

== ENCOUNTER 2023-11-12 11:03 | Outpatient (POV) | payer MEDICARE, MEDICAID, SELFPAY ==
[2023-11-12 11:22] VITALS: BP 83/60; PULSE 64; RESP 16; O2SAT 98; BMI 29.2
--- NOTE | 2023-11-12 16:12 | P.PCN_ITS ---
Procedure Date: 11/12/23 Time: 16:13 Anesthesiologist:: Anand Collins MD Complications:: None Pre-procedure Diagnosis:: Degenerative disc disease of lumbar spine with lumbar radiculopathy symptoms Post-procedure Diagnosis:: Same Indications for Procedure:: This patient is a pleasant 83-year-old white female who we are treating for low back pain with lumbar radiculopathy symptoms. She is currently a resident at a retirement. She does have a [employer] pain pump in place. She is having some increasing pain and given her age and comorbidities it is a concern as to whether we would replace her pain pump. I have talked to her about decreasing her intrathecal fentanyl infusion and transitioning her to oral medications to see if this would be better for her. Patient is in agreement we will start decreasing her intrathecal fentanyl infusion today. Will decrease her by 10%. She does have antalgic gait. Motor strength of lower extremities is 5/5. There is no gross sensory deficit. Procedure Details:: Informed consent was obtained risk and benefits of the procedure were explained to the patient. The patient was taken to the procedure room. The pump is interrogated intrathecal fentanyl infusion was decreased to 400 mcg/day. P atient tolerated the procedure well with no complications. Plan and Disposition:: We will communicate to her [facility] home refill nurse to continue decreasing her pump. We will decrease her 10% of the time. She is scheduled for refill on December 25. Once we get down to 150 mcg/day we will transition her to oral hydrocodone.
== END 2023-11-12 23:59 | disposition home or self-care (01) ==
PROVIDERS: Visit Provider Nurse Practitioner Family
DX: M51.36 Other intervertebral disc degeneration, lumbar region (principal)
CPT/HCPCS: 62368; 99212; 99213; G0463